=== PATIENT | female | born 1955 | race American Indian/Alaskan Native ===

== ENCOUNTER 2018-02-09 17:04 | Inpatient (IN) | payer BC ==
--- NOTE | 2018-02-09 17:34 | C.PDOC ---
History Of Present Illness 62 year old female, whose past medical history includes hypertension and hyperlipidemia, presents to the ED for evaluation of chest pain for 2 days. Patient reports left-sided heaviness that radiates down her arm. She was evaluated by her level vial inspector today and sent to the ED for further evaluation. Patient notes she took an Aspirin today. She denies headache, nausea, vomiting. Time Seen by Provider: 02/09/18 17:29 Chief Complaint (Nursing): High Blood Pressure History Per: Patient History/Exam Limitations: no limitations Onset/Duration Of Symptoms: Days (2) Current Symptoms Are (Timing): Still Present Associated Symptoms: denies: Headache Additional History Per: Patient Past Medical History Reviewed: Historical Data, Nursing Documentation, Vital Signs Vital Signs: Last Vital Signs Temp 98.1 F 02/09/18 17:14 Pulse 64 02/09/18 17:14 Resp 16 02/09/18 17:14 BP 161/82 H 02/09/18 17:14 Pulse Ox 100 02/09/18 17:14 - Medical History PMH: HTN, Hypercholesterolemia Surgical History: No Surg Hx Family History: States: Unknown Family Hx - Social History Hx Tobacco Use: No Hx Alcohol Use: No Hx Substance Use: No - Immunization History Hx Tetanus Toxoid Vaccination: No Hx Influenza Vaccination: No Hx Pneumococcal Vaccination: No Review Of Systems Cardiovascular: Positive for: Chest Pain Gastrointestinal: Negative for: Nausea, Vomiting Musculoskeletal: Positive for: Arm Pain Neurological: Negative for: Headache Physical Exam - Physical Exam Appears: Non-toxic, No Acute Distress, Other (obese) Skin: Normal Color, Warm, Dry Head: Atraumatic, Normacephalic Eye(s): bilateral: Normal Inspection Oral Mucosa: Moist Neck: Supple Chest: Symmetrical, No Deformity, No Tenderness Cardiovascular: Rhythm Regular, No Murmur Respiratory: Normal Breath Sounds, No Rales, No Rhonchi, No Wheezing Extremity: Normal ROM, Capillary Refill (less than 2 seconds ) Neurological/Psych: Oriented x3, Normal Speech, Normal Cognition ED Course And Treatment - Laboratory Results Result Diagrams: 02/09/18 17:54 02/09/18 17:54 ECG: Interpreted By Me, Viewed By Me ECG Rhythm: Sinus Rhythm Interpretation Of ECG: Normal Sinus Rhythm at rate 61bpm. No ST/T wave changes. Rate From EC O2 Sat by Pulse Oximetry: 100 (on RA) Pulse Ox Interpretation: Normal Medical Decision Making Medical Decision Making: typical cp h/ dominic mi. Progress: Bloodwork, CXR, EKG ordered and reviewed. pt took asa today. accepted by hospitalist. Disposition - Disposition Disposition: HOSPITALIZED Disposition Time: 19:00 Condition: STABLE - Clinical Impression Clinical Impression: Acute coronary syndrome - Scribe Statement The provider has reviewed the documentation as recorded by the Scribe (Angeles Cueva) Provider Attestation: All medical record entries made by the Scribe were at my direction and personally dictated by me. I have reviewed the chart and agree that the record accurately reflects my personal performance of the history, physical exam, m edical decision making, and the department course for this patient. I have also personally directed, reviewed, and agree with the discharge instructions and disposition. Decision To Admit - Pt Status Changed To: Hospital Disposition Of: Inpatient - Admit Certification Admit to Inpatient:: After my assessment, the patient will require hospitalization for at least two midnights. This is because of the severity of symptoms shown, intensity of services needed, and/or the medical risk in this patient being treated as an outpatient. - InPatient: Physician Admission Certification: I certify that this patient requires 2 or more midnights of care for the following reason:: acs likely needs cath - . Bed Request Type: Telemetry Admitting Physician: Ileana Wise Patient Diagnosis: Acute coronary syndrome
[2018-02-09 17:57] LABS: BASO % 0.4 % (0.0-2.0); EOS # 0.1 K/uL (0.0-0.7); HEMOGLOBIN 13.4 g/dL (11.0-16.0); LYMPH # 2.8 K/uL (1.0-4.3); MEAN CELL VOLUME 81.2 fL (81.0-99.0); MEAN CORPUSCULAR HEMOGLOBIN 26.9 pg (27.0-31.0); MEAN CORPUSCULAR HGB CONC 33.1 g/dL (33.0-37.0); MEAN PLATELET VOLUME 9.5 fL (7.2-11.7); MONO # 0.3 K/uL (0.0-0.8); MONO % 4.6 % (0.0-10.0); NEUT # 3.3 K/uL (1.8-7.0); NRBC % 0.1 % (0.0-2.0); RBC 4.99 Mil/uL (3.80-5.20); RED CELL DISTRIBUTION WIDTH 15.2 % (11.5-14.5); WHITE BLOOD COUNT 6.5 K/uL (4.8-10.8)
[2018-02-09 18:09] LABS: INR 1.2; PROTHROMBIN TIME 13.2 SECONDS (9.7-12.2)
[2018-02-09 18:10] LABS: ALB/GLOB RATIO 1.3 (1.0-2.1); ALBUMIN 4.8 g/dL (3.5-5.0); ALT/SGPT 26 U/L (9-52); AST/SGOT 32 U/L (14-36); BLOOD UREA NITROGEN 11 mg/dL (7-17); CALCIUM 9.8 mg/dl (8.6-10.4); GFR NON-AFRICAN AMERICAN > 60
--- NOTE | 2018-02-09 21:50 | CP.PCM.CON ---
History of Present Illness - History of Present Illness History of Present Illness: 62 F with multiple cardiac risk factors, Exertional chest pain Abnormal stress test For Cardiac cath in am NPO after MN except medications Past Patient History - Infectious Disease Hx of Infectious Diseases: None - Past Social History Smoking Status: Never Smoked - CARDIAC Hx Hypercholesterolemia: Yes Hx Hypertension: Yes - PSYCHIATRIC Hx Substance Use: No - SURGICAL HISTORY Hx Section: Yes Other/Comment: PERICARDIAL WINDOW. COLON RESECTION - ANESTHESIA Hx Anesthesia: Yes Hx Anesthesia Reactions: No Meds Allergies/Adverse Reactions: Allergies Allergy/AdvReac Type Severity Reaction Status Date / Time No Known Allergies Allergy Verified 02/09/18 17:14 Results - Vital Signs Recent Vital Signs: Last Vital Signs Temp 97.8 F 02/09/18 21:26 Pulse 58 L 02/09/18 21:26 Resp 18 02/09/18 21:26 BP 131/84 02/09/18 21:26 Pulse Ox 99 02/09/18 21:26 - Labs Result Diagrams: 02/09/18 17:54 02/09/18 17:54 Labs: Laboratory Results - last 24 hr 02/09/18 02/09/18 02/09/18 17:54 17:54 17:54 WBC 6.5 D RBC 4.99 Hgb 13.4 Hct 40.5 MCV 81.2 MCH 26.9 L MCHC 33.1 RDW 15.2 H Plt Count 200 MPV 9.5 Neut % (Auto) 50.0 Lymph % (Auto) 43.0 H Tripp % (Auto) 4.6 Eos % (Auto) 2.0 Baso % (Auto) 0.4 Neut # (Auto) 3.3 Lymph # (Auto) 2.8 Tripp # (Auto) 0.3 Eos # (Auto) 0.1 Baso # (Auto) 0.0 PT 13.2 H INR 1.2 APTT 34 Sodium 140 Potassium 3.5 L Chloride 100 Carbon Dioxide 27 Anion Gap 17 BUN 11 Creatinine 0.9 Est GFR ( Amer) > 60 Est GFR (Non-Af Amer) > 60 Random Glucose 108 H Calcium 9.8 Total Bilirubin 0.9 AST 32 ALT 26 Alkaline Phosphatase 72 Troponin I < 0.0120 Total Protein 8.6 H Albumin 4.8 Globulin 3.8 Albumin/Globulin Ratio 1.3
--- NOTE | 2018-02-09 23:31 | CP.PCM.HP ---
<Camryn Song P - Last Filed: 02/10/18 10:16> History of Present Illness - History of Present Illness History of Present Illness: H&P for hospitalist service: 62 year old female with PMHx of HTN, hypercholesterolemia and prior [place] presents with intermittent chest pain for the past year recently worsening in frequency and intensity in the past 3 days. Pain is associated with numbness and tingling in the L arm. Pain does not radiate. Patient denies palpitations, shortness of breath, cough, nausea, vomiting, fever, chills, trauma, leg swelling, and recent travel. PMHx: HTN, hypercholesterolemia, possible pericarditis and prior [place] PSHx: 4 c-sectons, pericardial window at 18 years old Meds: Amlodipine 10mg daily. Unsure of remaining medication. Follow up with pharmacy ([facility]) Allergies: NKDA Social: denies tobacco and illicit drug use. Occasional alcohol use. Lives alone. Family Hx: Maternal grandmother colon cancer, mother- cervical cancer. Proxy: Gerson Hernandez [phone] Code status: full code Present on Admission - Present on Admission Any Indicators Present on Admission: No Review of Systems - Constitutional Constitutional: absent: Chills, Fever, Headache, Night Sweats - EENT Eyes: absent: Blurred Vision, Diplopia Nose/Mouth/Throat: absent: Nasal Congestion, Sore Throat - Cardiovascular Cardiovascular: Chest Pain, Diaphoresis (hot flashes attributed to menopause). absent: Dyspnea on Exertion, Edema, Irregular Heart Rhythm, Pain Radiating to Arm/Neck/Jaw, Leg Edema, Palpitations - Respiratory Respiratory: absent: Cough, Dyspnea, Hemoptysis, Pain on Inspiration - Gastrointestinal Gastrointestinal: absent: Abdominal Pain, Constipation, Diarrhea, Heartburn, Loose Stools, Melena, Nausea, Vomiting - Genitourinary Genitourinary: absent: Dysuria, Hematuria - Musculoskeletal Musculoskeletal: absent: Deformity, Joint Swelling, Muscle Cramps, Muscle Weakness - Integumentary Integumentary: absent: Rash, Unusual Bruising, Wounds - Neurological Neurological: Numbness (L arm). absent: Abnormal Speech, Confusion, Dizziness, Focal Weakness, Headaches, Loss of Vision, Weakness Past Patient History - Infectious Disease Hx of Infectious Diseases: None - Past Social History Smoking Status: Never Smoked - CARDIAC Hx Hypercholesterolemia: Yes Hx Hypertension: Yes - MUSCULOSKELETAL/RHEUMATOLOGICAL Hx Falls: No - PSYCHIATRIC Hx Substance Use: No - SURGICAL HISTORY Hx Section: Yes Other/Comment: PERICARDIAL WINDOW. COLON RESECTION - ANESTHESIA Hx Anesthesia: Yes Hx Anesthesia Reactions: No Meds Allergies/Adverse Reactions: Allergies Allergy/AdvReac Type Severity Reaction Status Date / Time No Known Allergies Allergy Verified 02/09/18 17:14 Physical Exam - Constitutional Appears: Non-toxic, No Acute Distress - Head Exam Head Exam: ATRAUMATIC, NORMOCEPHALIC - Eye Exam Eye Exam: EOMI, Normal appearance, PERRL - ENT Exam ENT Exam: Mucous Membranes Moist - Neck Exam Neck exam: Positive for: Full Rom, Normal Inspection - Respiratory Exam Respiratory Exam: Clear to Auscultation Bilateral, NORMAL BREATHING PATTERN. absent: Rales, Rhonchi, Wheezes - Cardiovascular Exam Cardiovascular Exam: Bradycardia, REGULAR RHYTHM, +S1, +S2. absent: Systolic Murmur Additional comments: No reproducible chest tenderness - GI/Abdominal Exam GI & Abdominal Exam: Normal Bowel Sounds, Soft. absent: Guarding, Rebound, Tenderness - Extremities Exam Extremities exam: Positive for: full ROM, normal inspection. Negative for: calf tenderness, joint swelling, pedal edema, tenderness - Neurological Exam Neurological exam: Alert, Oriented x3 - Psychiatric Exam Psychiatric exam: Normal Affect, Normal Mood - Skin Skin Exam: Dry, Intact, Normal Color, Warm Results - Vital Signs Recent Vital Signs: Last Vital Signs Temp 97.8 F 02/09/18 21:26 Pulse 58 L 02/09/18 21:26 Resp 18 02/09/18 21:26 BP 131/84 02/09/18 21:26 Pulse Ox 99 02/09/18 21:26 - Labs Result Diagrams: 02/10/18 06:31 02/10/18 06:31 Labs: Laboratory Results - last 24 hr 02/09/18 02/09/18 02/09/18 17:54 17:54 17:54 WBC 6.5 D RBC 4.99 Hgb 13.4 Hct 40.5 MCV 81.2 MCH 26.9 L MCHC 33.1 RDW 15.2 H Plt Count 200 MPV 9.5 Neut % (Auto) 50.0 Lymph % (Auto) 43.0 H Starke % (Auto) 4.6 Eos % (Auto) 2.0 Baso % (Auto) 0.4 Neut # (Auto) 3.3 Lymph # (Auto) 2.8 Starke # (Auto) 0.3 Eos # (Auto) 0.1 Baso # (Auto) 0.0 PT 13.2 H INR 1.2 APTT 34 Sodium 140 Potassium 3.5 L Chloride 100 Carbon Dioxide 27 Anion Gap 17 BUN 11 Creatinine 0.9 Est GFR ( Amer) > 60 Est GFR (Non-Af Amer) > 60 Random Glucose 108 H Calcium 9.8 Total Bilirubin 0.9 AST 32 ALT 26 Alkaline Phosphatase 72 Troponin I < 0.0120 Total Protein 8.6 H Albumin 4.8 Globulin 3.8 Albumin/Globulin Ratio 1.3 Assessment & Plan - Assessment and Plan (Free Text) Plan: 62 year old female with PMHx of HTN, hypercholesterolemia and prior [place] admitted for chest pain rule out ACS. Chest pain rule out ACS with Hx of previous [place] (no stent placement) -EKG on admission: NSR at 61 bpm, RVH, Anteriolateral infarct age indeterminate -Repeat EKG: Sinus bradycardia t 57 bpm, Anteriolateral infarct age indeterminate -Troponin negative x3 -F/u CXR -F/u Lipid panel -F/u TSH -F/u Hgb A1c -Aspirin 81 mg daily -Crestor 5mg HS -Cardio consult, Dr. Bermudez. Cardiac cath in AM. NPO -Follow up home medications with pharmacy: [facility] on [address] HTN -Amlodipine 10mg QD (home med) Hypercholesterolemia -Patient unsure of home medication, placed on Crestor 5mg HS Prophylaxis -GI ppx not indicated -SCDs -Hold chemical anticoagulation for procedure <Nii Trujillo - Last Filed: 02/10/18 19:04> Results - Vital Signs Recent Vital Signs: Last Vital Signs Temp 97.9 F 02/10/18 15:15 Pulse 60 02/10/18 15:15 Resp 20 02/10/18 15:15 BP 139/84 02/10/18 15:15 Pulse Ox 98 02/10/18 15:15 - Labs Result Diagrams: 02/10/18 06:31 02/10/18 06:31 Labs: Laboratory Results - last 24 hr 02/10/18 02/10/18 02/10/18 00:31 06:31 06:31 WBC 5.5 RBC 4.48 Hgb 12.3 Hct 36.3 MCV 81.0 MCH 27.4 MCHC 33.8 RDW 15.0 H Plt Count 168 MPV 10.2 Neut % (Auto) 43.0 L Lymph % (Auto) 45.3 H Starke % (Auto) 7.6 Eos % (Auto) 3.1 Baso % (Auto) 1.0 Neut # (Auto) 2.4 Lymph # (Auto) 2.5 Starke # (Auto) 0.4 Eos # (Auto) 0.2 Baso # (Auto) 0.1 PT 13.2 H INR 1.2 APTT 31 Sodium Potassium Chloride Carbon Dioxide Anion Gap BUN Creatinine Est GFR ( Amer) Est GFR (Non-Af Amer) POC Glucose (mg/dL) Random Glucose Hemoglobin A1c Calcium Phosphorus Magnesium Total Bilirubin AST ALT Alkaline Phosphatase Total Creatine Kinase 105 CK-MB (Mass) 0.63 Troponin I < 0.0120 Total Protein Albumin Globulin Albumin/Globulin Ratio Triglycerides Cholesterol LDL Cholesterol Direct HDL Cholesterol TSH 3rd Generation 02/10/18 02/10/18 02/10/18 06:31 06:31 12:03 WBC RBC Hgb Hct MCV MCH MCHC RDW Plt Count MPV Neut % (Auto) Lymph % (Auto) Starke % (Auto) Eos % (Auto) Baso % (Auto) Neut # (Auto) Lymph # (Auto) Starke # (Auto) Eos # (Auto) Baso # (Auto) PT INR APTT Sodium 139 Potassium 3.2 L Chloride 103 Carbon Dioxide 28 Anion Gap 11 BUN 14 Creatinine 0.9 Est GFR ( Amer) > 60 Est GFR (Non-Af Amer) > 60 POC Glucose (mg/dL) 90 Random Glucose 98 Hemoglobin A1c 6.6 H Calcium 9.4 Phosphorus 3.9 Magnesium 1.8 Total Bilirubin 0.8 AST 42 H D ALT 23 Alkaline Phosphatase 82 Total Creatine Kinase 113 CK-MB (Mass) 0.77 Troponin I < 0.0120 Total Protein 7.6 Albumin 4.4 Globulin 3.2 Albumin/Globulin Ratio 1.4 Triglycerides 163 H Cholesterol 202 H LDL Cholesterol Direct 101 HDL Cholesterol 57 TSH 3rd Generation 3.61 Assessment & Plan - Date & Time Date: 02/10/18 (I have seen and examined the patient. I agree with the findings and plan of care as documented by Dr. Song. Patient with acute chest pain. History of CAD and Hypertension. Continue home meds. ROMIx3 with EKG. Consult to Cardio. Monitor for acute changes.) Time: 19:03 Attending/Attestation - Attestation I have personally seen and examined this patient.: Yes I have fully participated in the care of the patient.: Yes I have reviewed all pertinent clinical information: Yes
[2018-02-10 01:29] LABS: CK-MB 0.63 ng/mL (0.0-3.38)
[2018-02-10 01:48] VITALS: RESP 20
[2018-02-10 06:40] LABS: BASO # 0.1 K/uL (0.0-0.2); EOS # 0.2 K/uL (0.0-0.7); EOS % 3.1 % (0.0-4.0); HEMOGLOBIN 12.3 g/dL (11.0-16.0); LYMPH # 2.5 K/uL (1.0-4.3); LYMPH % 45.3 % (20.0-40.0); MEAN CORPUSCULAR HEMOGLOBIN 27.4 pg (27.0-31.0); MEAN CORPUSCULAR HGB CONC 33.8 g/dL (33.0-37.0); MEAN PLATELET VOLUME 10.2 fL (7.2-11.7); MONO # 0.4 K/uL (0.0-0.8); MONO % 7.6 % (0.0-10.0); NEUT # 2.4 K/uL (1.8-7.0); NRBC % 0.1 % (0.0-2.0); RBC 4.48 Mil/uL (3.80-5.20); WHITE BLOOD COUNT 5.5 K/uL (4.8-10.8)
[2018-02-10 06:58] LABS: INR 1.2; PROTHROMBIN TIME 13.2 SECONDS (9.7-12.2)
[2018-02-10 07:09] LABS: LDL CHOLESTEROL 101 mg/dL (0-129)
[2018-02-10 07:32] LABS: ALB/GLOB RATIO 1.4 (1.0-2.1); ALBUMIN 4.4 g/dL (3.5-5.0); ALT/SGPT 23 U/L (9-52); AST/SGOT 42 U/L (14-36); BLOOD UREA NITROGEN 14 mg/dL (7-17); CALCIUM 9.4 mg/dl (8.6-10.4); GFR NON-AFRICAN AMERICAN > 60; HDL CHOLESTEROL 57 mg/dL (30-70)
[2018-02-10 07:52] LABS: CK-MB 0.77 ng/mL (0.0-3.38)
[2018-02-10] MEDS ORDERED: Verapamil 2 ML ONE (08:16)
[2018-02-10] MEDS ORDERED: Nitroglycerin 50mg in D5W 50 MG/250 ML BOTTLE IV ONE (08:17)
[2018-02-10] MEDS ORDERED: Iohexol 350mg/ml 100 ML ONE (08:25)
[2018-02-10] MEDS ORDERED: Midazolam 2 MG/2 ML VIAL ONE (08:54)
[2018-02-10] MEDS ORDERED: Potassium Chloride 20 mEq ER Tab PO SCH (09:45)
--- NOTE | 2018-02-10 09:56 | RAD ---
Date of service: 02/09/2018 PROCEDURE: CHEST RADIOGRAPH, 1 VIEW HISTORY: chest pain COMPARISON: 12/13/2013 FINDINGS: LUNGS: Clear. PLEURA: No pneumothorax or pleural fluid seen. CARDIOVASCULAR: Normal. OSSEOUS STRUCTURES: No significant abnormalities. VISUALIZED UPPER ABDOMEN: Normal. OTHER FINDINGS: None. IMPRESSION: No active disease.
[2018-02-10] MEDS ORDERED: Glucagon Recombinant 1 mg Inj IM PRN (10:42)
[2018-02-10] MEDS ORDERED: Dextrose 50% SYRINGE Inj (50 ml) IV PRN (10:42)
[2018-02-10] MEDS ORDERED: Dextrose 50% SYRINGE Inj (50 ml) IVP PRN (10:42)
--- NOTE | 2018-02-10 10:57 | CP.PCM.PN ---
Subjective - Date & Time of Evaluation Date of Evaluation: 02/10/18 Time of Evaluation: 10:55 - Subjective Subjective: Patient s/p Cath L main: distal 50% with haziness and pressure dampening LAD: Ostial 50% hazy lesion L Cx: Proximal/Ostial 50% RCA: Proximal 80% EF: 70% Triple vessel and L main disease CABG Vs. PCI to be decided by tonight Continue current meds Objective - Vital Signs/Intake and Output Vital Signs (last 24 hours): Temp Pulse Resp BP Pulse Ox 97.7 F 53 L 20 125/67 99 02/10/18 06:15 02/10/18 06:15 02/10/18 06:15 02/10/18 06:15 02/10/18 06:15 - Medications Medications: Current Medications Amlodipine Besylate (Norvasc) 10 mg PO DAILY YASHIRA Aspirin (Aspirin Chewable) 81 mg PO DAILY YASHIRA Dextrose (Dextrose 50% Inj) 50 ml IVP ONCE PRN PRN Reason: Hypoglycemia Dextrose (Dextrose 50% Inj) 0 ml IV STAT PRN; Protocol PRN Reason: Hypoglycemia Protocol Dextrose (Glutose 15) 0 gm PO ONCE PRN; Protocol PRN Reason: Hypoglycemia Protocol Glucagon (Glucagen Diagnostic Kit) 0 mg IM STAT PRN; Protocol PRN Reason: Hypoglycemia Protocol Dextrose (Dextrose 5% In Water 1000 Ml) 1,000 mls @ 0 mls/hr IV .Q0M PRN; Protocol PRN Reason: Hypoglycemia Protocol Pneumococcal Polyvalent Vaccine (Pneumovax 23 Vaccine) 0.5 ml IM .ONCE ONE Stop: 02/11/18 10:01 Potassium Chloride (K-Dur 20 Meq Er Tab) 20 meq PO BRK YASHIRA Stop: 02/11/18 09:46 Rosuvastatin Calcium (Crestor) 10 mg PO HS YASHIRA - Labs Labs: 02/10/18 06:31 02/10/18 06:31 PT 13.2 SECONDS (9.7-12.2) H 02/10/18 06:31 INR 1.2 02/10/18 06:31 APTT 31 SECONDS (21-34) 02/10/18 06:31
--- NOTE | 2018-02-10 13:37 | RAD ---
Date of service: 02/10/2018 HISTORY: chest pain COMPARISON: 02/09/2018 FINDINGS: LUNGS: No active pulmonary disease. PLEURA: No significant pleural effusion identified, no pneumothorax apparent. CARDIOVASCULAR: No aortic atherosclerotic calcification present. Normal cardiac size. No pulmonary vascular congestion. OSSEOUS STRUCTURES: No significant abnormalities. VISUALIZED UPPER ABDOMEN: Normal. OTHER FINDINGS: None. IMPRESSION: No active disease.
[2018-02-10] MEDS ORDERED: Pantoprazole 40 mg EC Tab PO SCH (16:15)
--- NOTE | 2018-02-10 17:07 | CARD ---
APPROVED REPORT Date of service: 02/09/2018 EKG Measurement Heart [id number] <Conclusion> Normal sinus rhythm Possible limb lead reversal Interpretation is based on non reversal. Indeterminate axis. Old lateral wall MT, old anterolateral infarct, age undetermined Abnormal ECG
--- NOTE | 2018-02-10 17:43 | CARD ---
APPROVED REPORT Date of service: 02/10/2018 EXAM: LIMITED Two-dimensional and M-mode echocardiogram with Doppler and color Doppler. Other Information Quality : TDSRhythm : Technically limited study due to body habitus. RISK FACTORS Hypertension Hyperlipidemia 2D DIMENSIONS IVSd0.7 (0.7-1.1cm)LVDd3.8 (3.9-5.9cm) PWd0.9 (0.7-1.1cm)LVDs2.4 (2.5-4.0cm) FS (%) 36.7 %LVEF (%)67.2 (>50%) M-Mode DIMENSIONS RVDd2.38 (2.1-3.2cm)Left Atrium (MM)4.58 (2.5-4.0cm) IVSd0.78 (0.7-1.1cm)Aortic Root2.85 (2.2-3.7cm) LVDd5.66 (4.0-5.6cm)Aortic Cusp Exc.2.16 (1.5-2.0cm) PWd1.05 (0.7-1.1cm)FS (%) 28 % LVDs4.06 (2.0-3.8cm)LVEF (%)54 (>50%) Mitral Valve MV E Khblcnbm46.1cm/sMV A Vlrykyjd97.8cm/sE/A ratio0.9 TDI Lateral E' Peak V5.84cm/sMedial E' Peak V6.09cm/sE/Lateral E'15.1 E/Medial E'14.5 LEFT VENTRICLE The left ventricle is normal size. 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 There is normal left ventricular wall thickness. The left ventricular function is normal. The left ventricular ejection fraction is within the normal range. About 65% The left ventricular diastolic function is indeterminate. No left ventricle thrombus noted on this study. There is no ventricular septal defect visualized. There is no left ventricular aneurysm. There is no mass noted in the left ventricle. RIGHT VENTRICLE The right ventricle is normal size. There is normal right ventricular wall thickness. The right ventricular systolic function is normal. ATRIA The left atrium size is normal. The right atrium size is normal. The interatrial septum is intact with no evidence for an atrial septal defect. AORTIC VALVE The aortic valve is normal in structure and function. No aortic regurgitation is present. There is no aortic valvular stenosis. There is no aortic valvular vegetation. MITRAL VALVE The mitral valve is normal in structure and function. There is no evidence of mitral valve prolapse. There is no mitral valve stenosis. There is no mitral valve regurgitation noted. TRICUSPID VALVE The tricuspid valve is normal in structure and function. There is no tricuspid valve regurgitation noted. There is no tricuspid valve prolapse or vegetation. There is no tricuspid valve stenosis. PULMONIC VALVE The pulmonary valve is normal in structure and function. There is no pulmonic valvular regurgitation. There is no pulmonic valvular stenosis. GREAT VESSELS The aortic root is normal in size. The ascending aorta is normal in size. The pulmonary artery is normal. The IVC is normal in size and collapses >50% with inspiration. PERICARDIAL EFFUSION The pericardium appears normal. There is no pleural effusion. <Conclusion> Sub-optimal parasteranl long axis view. The left ventricular function is normal. 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 Normal doppler.
--- NOTE | 2018-02-10 18:19 | CP.PCM.PN ---
<María Elena Davis - Last Filed: 02/10/18 18:11> Subjective - Date & Time of Evaluation Date of Evaluation: 02/10/18 Time of Evaluation: 18:12 - Subjective Subjective: Patient seen and examined after cardiac cath. Patient denies chest pain, SOB, nausea, vomiting, diarrhea, fevers, chills. She feels anxious about the news of triple vessel disease. Objective - Vital Signs/Intake and Output Vital Signs (last 24 hours): Temp Pulse Resp BP Pulse Ox 97.7 F 54 L 20 125/67 99 02/10/18 06:15 02/10/18 12:25 02/10/18 06:15 02/10/18 06:15 02/10/18 06:15 - Medications Medications: Current Medications Aspirin (Aspirin Chewable) 81 mg PO DAILY [facility] Last Admin: 02/10/18 09:30 Dose: Not Given Dextrose (Dextrose 50% Inj) 50 ml IVP ONCE PRN PRN Reason: Hypoglycemia Dextrose (Dextrose 50% Inj) 0 ml IV STAT PRN; Protocol PRN Reason: Hypoglycemia Protocol Dextrose (Glutose 15) 15 gm PO ONCE PRN; Protocol PRN Reason: Hypoglycemia Protocol Glucagon (Glucagen Diagnostic Kit) 1 mg IM STAT PRN; Protocol PRN Reason: Hypoglycemia Protocol Hydrochlorothiazide (Microzide) 12.5 mg PO DAILY [facility] Dextrose (Dextrose 5% In Water 1000 Ml) 1,000 mls @ 0 mls/hr IV .Q0M PRN; Protocol PRN Reason: Hypoglycemia Protocol Losartan Potassium (Cozaar) 100 mg PO DAILY [facility] Pantoprazole Sodium (Protonix Ec Tab) 40 mg PO DAILY [facility] Pneumococcal Polyvalent Vaccine (Pneumovax 23 Vaccine) 0.5 ml IM .ONCE ONE Stop: 02/11/18 10:01 Potassium Chloride (K-Dur 20 Meq Er Tab) 20 meq PO BRK [facility] Stop: 02/11/18 09:46 Last Admin: 02/10/18 11:34 Dose: 20 meq Rosuvastatin Calcium (Crestor) 10 mg PO HS [facility] - Labs Labs: 02/10/18 06:31 02/10/18 06:31 PT 13.2 SECONDS (9.7-12.2) H 02/10/18 06:31 INR 1.2 02/10/18 06:31 APTT 31 SECONDS (21-34) 02/10/18 06:31 - Constitutional Appears: Well, Non-toxic - Head Exam Head Exam: ATRAUMATIC, NORMAL INSPECTION - Eye Exam Eye Exam: EOMI, Normal appearance - ENT Exam ENT Exam: Mucous Membranes Moist, Normal Exam - Neck Exam Neck Exam: Normal Inspection - Respiratory Exam Respiratory Exam: Clear to Ausculation Bilateral, NORMAL BREATHING PATTERN - Cardiovascular Exam Cardiovascular Exam: REGULAR RHYTHM - GI/Abdominal Exam GI & Abdominal Exam: Soft, Normal Bowel Sounds. absent: Distended, Firm, Guarding, Rigid, Tenderness - Extremities Exam Extremities Exam: Normal Inspection Additional comments: peripheral pulses strong, no peripheral edema - Neurological Exam Neurological Exam: Alert, Awake, Oriented x3 - Psychiatric Exam Psychiatric exam: Normal Affect, Normal Mood - Skin Skin Exam: Dry, Intact, Normal Color, Warm Assessment and Plan - Assessment and Plan (Free Text) Assessment: 62 year old female with PMHx of HTN, hypercholesterolemia and [facility] rule out ACS. s/p cath by Dr. Bermudez 11/ AM. ACS - triple vessel disease -per cath results and spoke to Dr. Bermudez - pt with triple vessel disease. Will need CABG and CABG done at other facililty. Transfer to [facility] arranged 6am 11. EMTALA form ready to be signed by night resident physician. -NPO after midnight, dinner 02/10 can be served -EKG on admission: NSR at 61 bpm, RVH, Anteriolateral infarct age indeterminate -Troponin negative x3 - no active ischemia -lipid panel essentially wnl: chol 202, TG 163, LDL 101, HDL 57 -TSH wnl -Aspirin 81 mg daily -Crestor 10mg HS (high intensity) -Cardio consult, Dr. Bermudez. DM -Hgb A1c at 6.6% - patient newly diagnosed with DM -counseled about lifestyle modifications -if fail lifestyle modifications, can be candidate for metformin -osteopathy doctor order placed -f/u outpatient with Dr. Bhardwaj, primary care HTN -losartan 100 mg/HCTZ 12.5 mg(home med) -monitor VS hypokalemia -K = 3.2, repleted -CMP qAM Prophylaxis -GI ppx not indicated -SCDs -Hold chemical anticoagulation for procedure case d/w Dr. Scott Davis PGY1 <Naila Chavez V - Last Filed: 11/06/18 21:07> Objective - Vital Signs/Intake and Output Vital Signs (last 24 hours): Temp Pulse Resp BP Pulse Ox 97.9 F 60 20 139/84 98 02/10/18 15:15 02/10/18 15:15 02/10/18 15:15 02/10/18 15:15 02/10/18 15:15 - Medications Medications: Current Medications Aspirin (Aspirin Chewable) 81 mg PO DAILY [facility] Last Admin: 02/10/18 09:30 Dose: Not Given Dextrose (Dextrose 50% Inj) 50 ml IVP ONCE PRN PRN Reason: Hypoglycemia Dextrose (Dextrose 50% Inj) 0 ml IV STAT PRN; Protocol PRN Reason: Hypoglycemia Protocol Dextrose (Glutose 15) 15 gm PO ONCE PRN; Protocol PRN Reason: Hypoglycemia Protocol Glucagon (Glucagen Diagnostic Kit) 1 mg IM STAT PRN; Protocol PRN Reason: Hypoglycemia Protocol Hydrochlorothiazide (Microzide) 12.5 mg PO DAILY [facility] Last Admin: 02/10/18 18:28 Dose: 12.5 mg Dextrose (Dextrose 5% In Water 1000 Ml) 1,000 mls @ 0 mls/hr IV .Q0M PRN; Protocol PRN Reason: Hypoglycemia Protocol Losartan Potassium (Cozaar) 100 mg PO DAILY [facility] Last Admin: 02/10/18 18:28 Dose: 100 mg Pantoprazole Sodium (Protonix Ec Tab) 40 mg PO DAILY [facility] Last Admin: 02/10/18 18:28 Dose: 40 mg Pneumococcal Polyvalent Vaccine (Pneumovax 23 Vaccine) 0.5 ml IM .ONCE ONE Stop: 02/11/18 10:01 Potassium Chloride (K-Dur 20 Meq Er Tab) 20 meq PO BRK [facility] Stop: 02/11/18 09:46 Last Admin: 02/10/18 11:34 Dose: 20 meq Rosuvastatin Calcium (Crestor) 10 mg PO HS [facility] - Labs Labs: 02/10/18 06:31 02/10/18 06:31 PT 13.2 SECONDS (9.7-12.2) H 02/10/18 06:31 INR 1.2 02/10/18 06:31 APTT 31 SECONDS (21-34) 02/10/18 06:31 Attending/Attestation - Attestation I have personally seen and examined this patient.: Yes I have fully participated in the care of the patient.: Yes I have reviewed all pertinent clinical information, including history, physical exam and plan: Yes Notes (Text): Patient seen, examined, and case discussed with day-time resident. Patient seen this morning post-cardiac cath with her daughter Dave at bedside. Patient reports she is doing ok. She is aware of the findings in regards to her cardiac cath. I have also brought to her attention that she is a diabetic based on her a1c which shows a1c: 6.6. which was news to her. I did indicate to her that diabetes requires further education as well as time for diet/exercise and lifestyle modifications; as well as unwanted sequela of blindness, eye problems, kidney problems, and difficult to recover from wound healing. I did indicate to her to try trial of modifications and at this point I would not recommend PO medication until her a1c is next checked since she can control her diabetes with diet and exercise. Discussed with Dr. Bermudez, patient to be transferred in the morning to [facility] for CABG. Our hospital at this time does not support ability to perform CABG hence need for transfer. Patient to be NPO after midnight and for pickup at 6am on 02/11/18. Patient's potassium repleted today. f/u BMP and Mag ordered; I have discussed with night resident to f/u and replete electrolytes if necessary. Resident has confirmed patient's home medications with her pharmacy; we have restarted while she is in the hospital. beta-carl held given bradycardia. Assessment/Plan 1. Acute Coronary Syndrome Abnormal Stress Test Triple Vessel Disease Assessment/Plan * Cardiac risk factors: female, diabetic, hypertension, abnormal stress test * Cardiac enzymes X3: negative * Patient had an outpatient stress test (supporting ischemia) which was abnormal, prompting cardiac cath * Cardiology (Dr. Bermudez) on case-->help appreciated * pt with triple vessel disease. Will need CABG and CABG done at other facililty, transfer to [facility] arranged 6am 02/11. EMTALA form ready to be signed by night resident physician who is aware to see and evaluate patient at time of discharge. * NPO after midnight * Beta carl held given bradycardia * Aspirin 81mg PO daily * HCTZ 12.5mg PO daily * Cozaar 100mg PO daily * Lipid panel: chol 202, TG 163, LDL 101, HDL 57-->patient is on statin therapy as outpatient * start Crestor 10mg PoqHS (patient takes pravastatin 80mg POqHS as outpatient) 2. Newly Diagnosed Diabetes Assessment/Plan * Hgb A1c at 6.6% - patient newly diagnosed with DM * counseled about lifestyle modifications as trial to see if control diabetes prior to starting PO medications * Striping Machine Operator referral * Hypoglycemic procotol * Accuchecks QAC and HS * Diet and education ordered * Cozaar 100mg PO daily * Aspirin 81mg PO daily * Lipid panel: chol 202, TG 163, LDL 101, HDL 57-->patient is on statin therapy as outpatient 3. Hypertension Assessment/Plan * Cozaar 100mg PO daily * HCTZ 12.5mg PO daily * Aspirin 81mg PO daily * heart healthy, 2gm, carb consistent diet 4. Hypokalemia Assessment/Plan * repleted today * repeat blood work tonight * likely secondary to diuretic 5. Lipid Disorder Assessment/Plan * Lipid panel: chol 202, TG 163, LDL 101, HDL 57-->patient is on statin therapy as outpatient * start Crestor 10mg PoqHS (patient takes pravastatin 80mg POqHS as outpatient) 6. Prophylaxis * Protonix 40mg PO daily (patient has history of gerd) * DVT ppx held secondary to cardiac cath today; patient to be transferred to [place] for CABG Disposition: Patient completed cardiac cath indicating triple vessel disease, prompting for CABG. Patient to be transferred and discharge tomorrow in the AM for CABG; arrangements made by cardiology.
[2018-02-10 21:50] LABS: BLOOD UREA NITROGEN 16 mg/dL (7-17); CALCIUM 9.3 mg/dl (8.6-10.4); GFR NON-AFRICAN AMERICAN > 60
[2018-02-10] MEDS ORDERED: Potassium Chloride 10 mEq ER Tab PO ONE (22:30)
--- NOTE | 2018-02-11 04:41 | CP.PCM.DIS ---
Provider - Provider Date of Admission: 02/09/18 18:39 Attending physician: Naila Chavez DO Consults: Dr. Bermudez, cardiology Time Spent in preparation of Discharge (in minutes): 35 Diagnosis - Discharge Diagnosis (1) Acute coronary syndrome Status: Acute (2) Chest pain Status: Acute (3) Hypercholesteremia Status: Acute (4) Hypertension Status: Acute Hospital Course - Lab Results Lab Results: Most Recent Lab Values WBC 5.5 K/uL (4.8-10.8) 02/10/18 06:31 RBC 4.48 Mil/uL (3.80-5.20) 02/10/18 06:31 Hgb 12.3 g/dL (11.0-16.0) 02/10/18 06:31 Hct 36.3 % (34.0-47.0) 02/10/18 06:31 MCV 81.0 fL (81.0-99.0) 02/10/18 06:31 MCH 27.4 pg (27.0-31.0) 02/10/18 06:31 MCHC 33.8 g/dL (33.0-37.0) 02/10/18 06:31 RDW 15.0 % (11.5-14.5) H 02/10/18 06:31 Plt Count 168 K/uL (130-400) 02/10/18 06:31 MPV 10.2 fL (7.2-11.7) 02/10/18 06:31 Neut % (Auto) 43.0 % (50.0-75.0) L 02/10/18 06:31 Lymph % (Auto) 45.3 % (20.0-40.0) H 02/10/18 06:31 [place] % (Auto) 7.6 % (0.0-10.0) 02/10/18 06:31 Eos % (Auto) 3.1 % (0.0-4.0) 02/10/18 06:31 Baso % (Auto) 1.0 % (0.0-2.0) 02/10/18 06:31 Neut # (Auto) 2.4 K/uL (1.8-7.0) 02/10/18 06:31 Lymph # (Auto) 2.5 K/uL (1.0-4.3) 02/10/18 06:31 [place] # (Auto) 0.4 K/uL (0.0-0.8) 02/10/18 06:31 Eos # (Auto) 0.2 K/uL (0.0-0.7) 02/10/18 06:31 Baso # (Auto) 0.1 K/uL (0.0-0.2) 02/10/18 06:31 PT 13.2 SECONDS (9.7-12.2) H 02/10/18 06:31 INR 1.2 02/10/18 06:31 APTT 31 SECONDS (21-34) 02/10/18 06:31 Sodium 139 mmol/L (132-148) 02/10/18 21:35 Potassium 3.5 mmol/L (3.6-5.2) L 02/10/18 21:35 Chloride 103 mmol/L (98-107) 02/10/18 21:35 Carbon Dioxide 25 mmol/L (22-30) 02/10/18 21:35 Anion Gap 14 (10-20) 02/10/18 21:35 BUN 16 mg/dL (7-17) 02/10/18 21:35 Creatinine 0.9 mg/dL (0.7-1.2) 02/10/18 21:35 Est GFR ( Amer) > 60 02/10/18 21:35 Est GFR (Non-Af Amer) > 60 02/10/18 21:35 POC Glucose (mg/dL) 116 mg/dL (65-110) H 02/10/18 21:32 Random Glucose 111 mg/dL (65-105) H 02/10/18 21:35 Hemoglobin A1c 6.6 % (4.2-6.5) H 02/10/18 06:31 Calcium 9.3 mg/dl (8.6-10.4) 02/10/18 21:35 Phosphorus 3.9 mg/dL (2.5-4.5) 02/10/18 06:31 Magnesium 1.8 mg/dL (1.6-2.3) 02/10/18 21:35 Total Bilirubin 0.8 mg/dL (0.2-1.3) 02/10/18 06:31 AST 42 U/L (14-36) H D 02/10/18 06:31 ALT 23 U/L (9-52) 02/10/18 06:31 Alkaline Phosphatase 82 U/L (38-126) 02/10/18 06:31 Total Creatine Kinase 113 U/L (30-135) 02/10/18 06:31 CK-MB (Mass) 0.77 ng/mL (0.0-3.38) 02/10/18 06:31 Troponin I < 0.0120 ng/mL (0.00-0.120) 02/10/18 06:31 Total Protein 7.6 g/dL (6.3-8.3) 02/10/18 06:31 Albumin 4.4 g/dL (3.5-5.0) 02/10/18 06:31 Globulin 3.2 gm/dL (2.2-3.9) 02/10/18 06:31 Albumin/Globulin Ratio 1.4 (1.0-2.1) 02/10/18 06:31 Triglycerides 163 mg/dL (0-149) H 02/10/18 06:31 Cholesterol 202 mg/dL (0-199) H 02/10/18 06:31 LDL Cholesterol Direct 101 mg/dL (0-129) 02/10/18 06:31 HDL Cholesterol 57 mg/dL (30-70) 02/10/18 06:31 TSH 3rd Generation 3.61 mIU/L (0.46-4.68) 02/10/18 06:31 - Hospital Course Hospital Course: On admission: 62 year old female with PMHx of HTN, hypercholesterolemia and prior CO was sent to ED by Dimensional Inspector, Dr. Bermudez, for evaluation of intermittent chest pain for the past year. Pain has been recently worsening in frequency and intensity in the past 3 days. Pain is associated with numbness and tingling in the left arm. Pain does not radiate. Patient denies palpitations, shortness of breath, cough, nausea, vomiting, fever, chills, trauma, leg swelling, and recent travel. Hostpital Course: Patient was admitted for chest pain rule out acute coronary syndrome, as patient had multiple risk factors: female, diabetic, hypertension, abnormal stress test. Cardiac enzymes were negative x3. Dr. Bermudez was consulted, who took patient to cardiac cath. Patient was found to have acute coronary syndrome, with the following diseased vessels: L main: distal 50%, LAD: Ostial 50%, L Cx: Pr oximal/Ostial 50%, RCA: Proximal 80% and EF of 70%. Decision was made for patient to undergo CABG at [facility], arranged by Dr. Bermudez. During admission patient also newly diagnosed with diabetes with Hgb A1c of 6.6. Patient will attempt lifestyle modifications prior to diabetes medications. Patient is to follow up Hgb A1c with her primary care physician. CXR: No active pulmonary disease. No significant pleural effusion identified, no pneumothorax apparent. No aortic atherosclerotic calcification present. Normal cardiac size. No pulmonary vascular congestion. IMPRESSION: No active disease. (See full report) Echocardiogram: The LVEF is normal. 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 Normal doppler. (see full report) Patient is discharged to [facility], where she is scheduled to undergo CABG. Patient is not to return. Patient's medication list is the following: Aspirin 81mg PO daily HCTZ 12.5mg PO daily Cozaar 100mg PO daily Protonix 40mg PO daily Crestor 10mg PO HS K-Dur 20mEq PO daily Discharge Exam - Head Exam Head Exam: ATRAUMATIC, NORMAL INSPECTION - Eye Exam Eye Exam: EOMI, Normal appearance, PERRL - ENT Exam ENT Exam: Mucous Membranes Moist - Neck Exam Neck exam: Full Rom, Normal Inspection - Respiratory Exam Respiratory Exam: Clear to PA & Lateral, NORMAL BREATHING PATTERN. absent: Rales, Rhonchi, Wheezes, Respiratory Distress - Cardiovascular Exam Cardiovascular Exam: REGULAR RHYTHM, +S1, +S2 - GI/Abdominal Exam GI & Abdominal Exam: Normal Bowel Sounds, Soft. absent: Distended, Firm, Guarding, Tenderness - Extremities Exam Extremities exam: full ROM, normal capillary refill, pedal pulses present Additional comments: Trace pitting LE edema bilaterally - Neurological Exam Neurological exam: Alert, CN II-XII Intact (grossly), Oriented x3 - Psychiatric Exam Psychiatric exam: Normal Affect, Normal Mood - Skin Skin Exam: Dry, Intact, Normal Color, Warm Discharge Plan - Follow Up Plan Condition: STABLE Disposition: Trans to Other Acute Care [facility] Additional Instructions: Patient is transferred to [facility] for CABG. Patient is not to return. Referrals: Olman Bermudez MD [Staff Provider] -
[2018-02-11 06:30] VITALS: BP 151/87; PULSE 67; TEMP 98.3; O2SAT 99
[2018-02-11] MEDS ORDERED: Pneumococcal 23-Valent Vaccine IM ONE (10:00)
--- NOTE | 2018-02-11 19:43 | CARD ---
APPROVED REPORT Date of service: 02/10/2018 EKG Measurement Heart [id number] <Conclusion> Sinus bradycardia Possible Anterolateral infarct, age undetermined Abnormal ECG
--- NOTE | 2018-02-14 | CARD ---
APPROVED REPORT Date of service: 02/10/2018 EKG Measurement Heart [id number] <Conclusion> Sinus bradycardia Possible Anterolateral infarct, age undetermined Abnormal ECG
--- NOTE | 2018-02-15 14:56 | CARDCATH ---
PROCEDURE DATE: 02/10/2018 PROCEDURES: 1. Left heart catheterization. 2. Coronary angiogram. PERFORMING PHYSICIAN: Olman Bermudez MD CLINICAL INDICATIONS: 1. Angina. 2. Abnormal stress test. 3. Hyperlipidemia. 4. Hypertension. DESCRIPTION OF PROCEDURE: After informed consent, the patient was prepped and draped in the usual sterile fashion. A 2% lidocaine was given in the right groin for local anesthesia. Using micropuncture technique, a 6-Tunisian sheath was introduced into the right common femoral artery. A JR4 6-Tunisian diagnostic catheter crossed into the left ventricle across the aortic valve. LV end-diastolic pressure measured. Contrast was injected and LV angiogram was done. The catheter was pulled back across the aortic valve. The gradient across the aortic valve was measured and the same catheter engaged the into the right coronary artery. Contrast injected and right coronary angiogram was done. Then, the catheter was exchanged to a JR4 6-Tunisian diagnostic catheter. The catheter was engaged into the left main coronary artery. There was significant . Then, the catheter was exchanged to a 6-Tunisian JL3.5 guide catheter with side holes. Then, the catheter engaged into the left main coronary artery. Contrast injected and left coronary angiogram was done. The patient tolerated the procedure well. Postprocedure, Mynx closure device deployed in the right groin with excellent hemostasis. FINDINGS: 1. Left main, LAD, left circumflex has trifurcation disease. [place] 1, 1, 1 disease with 50% distal left main, 50% ostial LAD, 50% ostial circumflex disease. Mid and distal LAD and diagonal branches are patent. Distal circumflex and obtuse marginal branches are patent. 2. Right coronary artery is dominant. Proximal right coronary artery has 80% eccentric stenosis. The distal right coronary artery is patent. 3. LV ejection fraction is approximately 70%. No wall motion abnormality noted. EDP is 14. No gradient across the aortic valve. IMPRESSION: 1. Triple vessel disease as described above. 2. Normal left ventricular systolic function. 3. Recommend intravascular ultrasound of left coronary system followed by coronary artery bypass grafting surgery. Olman Bermudez MD
== END 2018-02-11 06:25 | disposition short-term general hospital (02) | DRG 287 ==
LOC: C.ER 17:04 → C.9E 18:39 → C.6T 20:22
PROVIDERS: ADMIT Hospitalist; ATTEND Hospitalist
PROC: 4A023N7 Measurement of Cardiac Sampling and Pressure, Left Heart, Percutaneous Approach (ICD-10-PCS; principal; 2018-02-10)
PROC: B2151ZZ Fluoroscopy of Left Heart using Low Osmolar Contrast (ICD-10-PCS; 2018-02-10)
PROC: B2111ZZ Fluoroscopy of Multiple Coronary Arteries using Low Osmolar Contrast (ICD-10-PCS; 2018-02-10)
DX: I25.119 Atherosclerotic heart disease of native coronary artery with unspecified angina pectoris (principal); I24.9 Acute ischemic heart disease, unspecified; E78.5 Hyperlipidemia, unspecified; E87.6 Hypokalemia; I10 Essential (primary) hypertension; E11.9 Type 2 diabetes mellitus without complications; E78.00 Pure hypercholesterolemia, unspecified; T50.2X5A Adverse effect of carbonic-anhydrase inhibitors, benzothiadiazides and other diuretics, initial encounter; I25.2 Old myocardial infarction; Z79.82 Long term (current) use of aspirin

== ENCOUNTER 2018-05-09 16:47 | Inpatient (IN) | payer BC ==
[2018-05-09 17:22] LABS: BASO # 0.1 K/uL (0.0-0.2); BASO % 0.9 % (0.0-2.0); EOS # 0.3 K/uL (0.0-0.7); EOS % 3.8 % (0.0-4.0); HEMOGLOBIN 14.3 g/dL (11.0-16.0); LYMPH % 43.8 % (20.0-40.0); MEAN CELL VOLUME 86.5 fL (81.0-99.0); MEAN CORPUSCULAR HEMOGLOBIN 28.6 pg (27.0-31.0); MEAN PLATELET VOLUME 9.6 fL (7.2-11.7); MONO # 0.8 K/uL (0.0-0.8); MONO % 8.4 % (0.0-10.0); NEUT # 3.9 K/uL (1.8-7.0); NEUT % 43.1 % (50.0-75.0); RBC 4.99 Mil/uL (3.80-5.20); WHITE BLOOD COUNT 9.1 K/uL (4.8-10.8)
--- NOTE | 2018-05-09 17:24 | C.PDOC ---
History Of Present Illness 62 year old female presents to the ED for evaluation of generalized weakness associated with decreased appetite for 2-3 days. The patient reports recent heart and brain surgery. She notes blurred vision that resolved after the surge ry. Denies fever, chills, and any other associated symptoms. Time Seen by Provider: 05/09/18 17:05 Chief Complaint (Nursing): Weakness/Neurological Deficit History Per: Patient History/Exam Limitations: no limitations Onset/Duration Of Symptoms: Days (x 2-3 days. ) Current Symptoms Are (Timing): Still Present Fall Associated With With Symptoms: No Recent travel outside of the [place]: No Past Medical History Reviewed: Historical Data, Nursing Documentation, Vital Signs Vital Signs: Last Vital Signs Temp 97.6 F 05/09/18 17:07 Pulse 99 H 05/09/18 17:07 Resp 18 05/09/18 17:07 BP 108/76 05/09/18 17:07 Pulse Ox 99 05/09/18 17:07 - Medical History PMH: HTN, Hypercholesterolemia - [facility] Procedures FLUOROSCOPY OF LEFT HEART USING LOW OSMOLAR CONTRAST (02/09/18) FLUOROSCOPY OF MULT COR ART USING L OSM CONTRAST (02/09/18) MEASURE OF CARDIAC SAMPL & PRESSURE, L HEART, PERC APPROACH (02/09/18) Family History: States: Unknown Family Hx - Social History Hx Tobacco Use: No Hx Alcohol Use: No Hx Substance Use: No - Immunization History Hx Tetanus Toxoid Vaccination: No Hx Influenza Vaccination: No Hx Pneumococcal Vaccination: No Review Of Systems Except As Marked, All Systems Reviewed And Found Negative. Constitutional: Positive for: Weakness (generalized. ), Other (decreased appetite.). Negative for: Fever, Chills Physical Exam - Physical Exam Appears: Well, Non-toxic, No Acute Distress, Other ((+) generalized weakness.) Skin: Warm, Dry Head: Atraumatic, Normacephalic Eye(s): bilateral: Normal Inspection Oral Mucosa: Moist Neck: Normal ROM Chest: Symmetrical, Tenderness ((+) chest wall tenderness near the post op area.) Cardiovascular: Rhythm Regular, No Murmur Respiratory: Normal Breath Sounds, No Rales, No Rhonchi, No Wheezing Gastrointestinal/Abdominal: Normal Exam, Soft, No Tenderness Extremity: Normal ROM (x4) Neurological/Psych: Oriented x3, Normal Speech, Normal Cognition ED Course And Treatment - Laboratory Results Result Diagrams: 05/09/18 17:19 05/09/18 17:19 ECG: Interpreted By Me, Viewed By Me ECG Rhythm: Sinus Rhythm, Nonspecific Changes ECG Interpretation: Normal Interpretation Of ECG: Q waves; no abnormalities Rate From EC O2 Sat by Pulse Oximetry: 99 (RA) Pulse Ox Interpretation: Normal - Radiology CXR: Interpreted by Me, Viewed By Me CXR Interpretation: Yes: Cardiomegaly, Other (b/l pleural effusion ) Medical Decision Making Medical Decision Making: Initial plan: -EKG -Blood sent. -CXR -Urine culture -Urinalysis Progress/Update: 6:25pm : Spoke with Dr. Bermudez, recommended to admit to Dr. Dailey. 6:26pm : Spoke with Dr. Rosado who accepted patient admission and recommended Dr. Mcleod for pulmonary consult. 6:54pm : Spoke with Dr. Mcleod agreed to consult. Disposition Discussed With : Kodak Rosado Doctor Will See Patient In The: Hospital - Disposition Disposition: HOSPITALIZED Disposition Time: 18:37 Condition: STABLE - POA Present On Arrival: None - Clinical Impression Clinical Impression: Pleural effusion, Heart failure - Scribe Statement The provider has reviewed the documentation as recorded by the Scribe (Marcy Watkins) Provider Attestation: All medical record entries made by the Scribe were at my direction and personally dictated by me. I have reviewed the chart and agree that the record accurately reflects my personal performance of the history, physical exam, medical decision making, and the department course for this patient. I have also personally directed, reviewed, and agree with the discharge instructions and disposition.
[2018-05-09 17:31] LABS: INR 1.3
[2018-05-09 17:34] LABS: ALB/GLOB RATIO 1.3 (1.0-2.1); ALBUMIN 4.7 g/dL (3.5-5.0); ALT/SGPT 17 U/L (9-52); AST/SGOT 25 U/L (14-36); BLOOD UREA NITROGEN 5 mg/dL (7-17); CALCIUM 9.9 mg/dl (8.6-10.4); GFR NON-AFRICAN AMERICAN 50
[2018-05-09 17:46] LABS: B-TYPE NATRIURETIC PEPTIDE 702 pg/mL (0-900); CK-MB 0.36 ng/mL (0.0-3.38)
[2018-05-09] MEDS: Sodium Chloride 0.9% 1,000 ML IV SCH (17:54)
--- NOTE | 2018-05-09 18:15 | RAD ---
Date of service: 05/09/2018 HISTORY: SOB COMPARISON: Portable chest 02/10/2018. FINDINGS: LUNGS: Small bilateral pleural effusions are identified in the interval with underlying airspace disease not completely excluded though not clearly evident either. No interval median sternotomy identified post CABG. No pulmonary vascular congestion. Cardiac size remains enlarged. No pneumothorax bilaterally. PLEURA: As above. CARDIOVASCULAR: No aortic atherosclerotic calcification present. As above OSSEOUS STRUCTURES: No significant abnormalities. VISUALIZED UPPER ABDOMEN: Normal. OTHER FINDINGS: None. IMPRESSION: Interval post CABG. Bilateral pleural effusions are identified with underlying airspace disease not completely excluded though not proven either. No pulmonary vascular congestion.
[2018-05-09] MEDS ORDERED: Potassium Chloride 20 mEq/15 ml LIQ UD PO STA (18:20)
[2018-05-09] MEDS ORDERED: Potassium Chloride 20 mEq/15 ml LIQ UD ONE (18:27)
[2018-05-09] MEDS ORDERED: Potassium Chloride 20 mEq ER Tab PO ONE (18:28)
[2018-05-09] MEDS ORDERED: Sodium Chloride 0.9% 500 ML IV ONE (19:35)
[2018-05-09] MEDS ORDERED: Albuterol 0.042% Inhal Sol (1.25 mg/3 mL) UD INH PRN (20:01)
[2018-05-09] MEDS: cefTRIAXone IV 1 gm in Dextros 1 GM in Dextrose 5% In Water 50 ML IVPB SCH (20:32)
[2018-05-10] MEDS: Levothyroxine 50 MCG TAB PO SCH (06:35)
[2018-05-10] MEDS: Sodium Chloride 0.9% 1,000 ML IV SCH (06:37)
--- NOTE | 2018-05-10 09:49 | RAD ---
Date of service: 05/09/2018 HISTORY: abd pain COMPARISON: None available. FINDINGS: BOWEL: Normal. No obstruction. No free air. Phlebolith type calcifications in the inferior pelvis soft tissues bilaterally. Linear radiodensity seen the right flank once again which may reflect postoperative change. BONES: Normal. OTHER FINDINGS: None. IMPRESSION: Nonobstructive bowel gas pattern. No prominent free intra peritoneal gas collection identified.
[2018-05-10] MEDS ORDERED: NISOLDIPINE 8.5 MG PO SCH (10:00)
[2018-05-10] MEDS: Enoxaparin 40 mg Syringe SC SCH (10:02)
[2018-05-10] MEDS: cefTRIAXone IV 1 gm in Dextros 1 GM in Dextrose 5% In Water 50 ML IVPB SCH (10:02)
--- NOTE | 2018-05-10 11:12 | CT ---
Date of service: 05/09/2018 PROCEDURE: CT Chest without contrast HISTORY: r/o pneumonia COMPARISON: None available. TECHNIQUE: Contiguous axial images were obtained through the chest without intravenous contrast enhancement. Sagittal and coronal reconstructions were performed. Radiation dose: Total exam DLP = 605.78 mGy-cm. This CT exam was performed using one or more of the following dose reduction techniques: Automated exposure control, adjustment of the mA and/or kV according to patient size, and/or use of iterative reconstruction technique. FINDINGS: LUNGS: Compressive atelectasis seen at the bilateral lower lobes with dependent atelectasis in the left upper lobe minimally. No definitive infiltrate bilaterally. Respiratory motion obscures left upper lobe. MEDIASTINUM: Unremarkable thoracic aorta. No aneurysm. Cardiomegaly. Main pulmonary artery unremarkable. No vascular congestion. No lymphadenopathy. Post CABG changes identified. No aortic atherosclerotic calcification. PLEURA: [id number] right and mild left pleural effusions are identified. BONES: No fracture. No destructive lesion. UPPER ABDOMEN: Small hiatal hernia. OTHER FINDINGS: None. IMPRESSION: Bilateral pleural effusions are identified moderate right and mild at the left exerting compression atelectasis at the bilateral lower lobes. Cardiomegaly without pulmonary vascular congestion.
[2018-05-10 11:22] LABS: SQUAMOUS EPITHIAL 13 /hpf (0-5); URINE BACTERIA OCC (<OCC); URINE BILIRUBIN NEGATIVE (NEGATIVE); URINE BLOOD NEGATIVE (NEGATIVE); URINE CLARITY Hazy (Clear); URINE COLOR Yellow (YELLOW); URINE GLUCOSE (UA) NORMAL (Normal); URINE HYALINE CAST 0-2 /lpf (0-2); URINE LEUKOCYTE ESTERASE NEG Leu/uL (Negative); URINE PROTEIN NEGATIVE (NEGATIVE); URINE UROBILINOGEN NORMAL mg/dL (0.2-1.0)
[2018-05-10 12:14] LABS: MEAN CELL VOLUME 88.4 fL (81.0-99.0); MEAN CORPUSCULAR HEMOGLOBIN 27.9 pg (27.0-31.0); MEAN CORPUSCULAR HGB CONC 31.5 g/dL (33.0-37.0); MEAN PLATELET VOLUME 9.9 fL (7.2-11.7); RBC 4.24 Mil/uL (3.80-5.20); RED CELL DISTRIBUTION WIDTH 18.9 % (11.5-14.5); WHITE BLOOD COUNT 5.6 K/uL (4.8-10.8)
[2018-05-10 12:21] LABS: HEMOGLOBIN 11.8 g/dL (11.0-16.0)
[2018-05-10 12:24] LABS: AMYLASE < 30 U/L (30-110); LIPASE 35 U/L (23-300)
[2018-05-10 12:31] LABS: ALB/GLOB RATIO 1.5 (1.0-2.1); CALCIUM 9.2 mg/dl (8.6-10.4)
[2018-05-10] MEDS: Potassium Ch 20mEq in D5-1/2NS 1,000 ML IV SCH ×2 (12:42→22:10)
--- NOTE | 2018-05-10 15:19 | CP.PCM.CON ---
History of Present Illness - History of Present Illness History of Present Illness: Reason for consultation: Pleural effusion 62-year-old female with history of hypertension, hypercholesterolemia, coronary artery disease status post CABG last February, Pituitary tumor status post surgery, was admitted for weakness and poor appetite for the past few days. Chest x-ray done consistent with bilateral pleural effusion right greater than left. Patient denies shortness of breath, denies cough, denies fever chills, denies night sweats, denies weight loss. PMHx: HTN, hypercholesterolemia, coronary artery disease status post CABG at [facility] recently PSHx: 4 c-sectons, pericardial window at 18 years old Meds: Reviewed Allergies: NKDA Social: denies tobacco and illicit drug use. Occasional alcohol use. Lives alone. Family Hx: Maternal grandmother colon cancer, mother- cervical cancer. Proxy: Gerson Aburtoer [phone] Code status: full code Review of Systems - Review of Systems All systems: reviewed and no additional remarkable complaints except (Complaining of weakness and poor appetite) Past Patient History - Infectious Disease Hx of Infectious Diseases: None - Past Social History Smoking Status: Never Smoked - CARDIAC Hx Hypercholesterolemia: Yes Hx Hypertension: Yes - MUSCULOSKELETAL/RHEUMATOLOGICAL Hx Falls: No - PSYCHIATRIC Hx Substance Use: No - SURGICAL HISTORY Hx Section: Yes Other/Comment: PERICARDIAL WINDOW. COLON RESECTION - ANESTHESIA Hx Anesthesia: Yes Hx Anesthesia Reactions: No Meds Allergies/Adverse Reactions: Allergies Allergy/AdvReac Type Severity Reaction Status Date / Time No Known Allergies Allergy Verified 05/09/18 16:53 - Medications Medications: Current Medications Acetaminophen (Tylenol 325mg Tab) 650 mg PO Q6 PRN PRN Reason: Headache Last Admin: 05/09/18 22:14 Dose: 650 mg Albuterol Sulfate (Albuterol 0.042% Inhal Marleni (1.25mg/3ml) Ud) 1.25 mg INH RQ6 PRN PRN Reason: Shortness of Breath Aspirin (Aspirin Chewable) 81 mg PO DAILY [facility] Last Admin: 05/10/18 10:02 Dose: 81 mg Enoxaparin Sodium (Lovenox) 40 mg SC DAILY [facility] Last Admin: 05/10/18 10:02 Dose: 40 mg Ceftriaxone Sodium 1 gm/ (Dextrose) 100 mls @ 50 mls/30 min IVPB DAILY [facility]; Protocol Last Admin: 05/10/18 10:02 Dose: 50 mls/30 min Potassium Chloride/Dextrose/Sod Cl (Potassium Chl 20 Meq In D5-1/2ns) 1,000 mls @ 100 mls/hr IV .Q10H [facility] Last Admin: 05/10/18 12:42 Dose: 100 mls/hr Levothyroxine Sodium (Synthroid) 50 mcg PO DAILY@0630 [facility] Last Admin: 05/10/18 06:35 Dose: 50 mcg Metoprolol Tartrate (Lopressor) 12.5 mg PO BID [facility] Last Admin: 05/10/18 12:41 Dose: 12.5 mg Ondansetron HCl (Zofran Inj) 4 mg IVP Q6 PRN PRN Reason: Nausea/Vomiting Pantoprazole Sodium (Protonix Inj) 40 mg IVP DAILY [facility] Last Admin: 05/10/18 12:42 Dose: 40 mg Rosuvastatin Calcium (Crestor) 5 mg PO HS [facility] Last Admin: 05/09/18 22:48 Dose: 5 mg Physical Exam - Head Exam Head Exam: ATRAUMATIC, NORMOCEPHALIC - ENT Exam ENT Exam: Mucous Membranes Moist - Neck Exam Neck exam: Positive for: Normal Inspection - Respiratory Exam Respiratory Exam: Decreased Breath Sounds - Cardiovascular Exam Cardiovascular Exam: REGULAR RHYTHM - GI/Abdominal Exam GI & Abdominal Exam: Normal Bowel Sounds, Soft - Extremities Exam Extremities exam: Positive for: normal inspection, pedal edema Results - Vital Signs Recent Vital Signs: Last Vital Signs Temp 97.9 F 05/10/18 08:57 Pulse 89 05/10/18 12:40 Resp 22 05/10/18 08:57 BP 105/73 05/10/18 12:40 Pulse Ox 97 05/10/18 08:57 - Labs Result Diagrams: 05/10/18 10:55 05/10/18 10:55 Labs: Laboratory Results - last 24 hr 05/09/18 05/09/18 05/09/18 17:19 17:19 17:19 WBC 9.1 D RBC 4.99 Hgb 14.3 D Hct 43.2 MCV 86.5 D MCH 28.6 MCHC 33.0 RDW 19.0 H Plt Count 218 MPV 9.6 Neut % (Auto) 43.1 L Lymph % (Auto) 43.8 H Saline % (Auto) 8.4 Eos % (Auto) 3.8 Baso % (Auto) 0.9 Neut # (Auto) 3.9 Lymph # (Auto) 4.0 Saline # (Auto) 0.8 Eos # (Auto) 0.3 Baso # (Auto) 0.1 PT 14.0 H INR 1.3 APTT 41 H Sodium 137 Potassium 3.0 L Chloride 98 Carbon Dioxide 27 Anion Gap 15 BUN 5 L Creatinine 1.1 Est GFR ( Amer) > 60 Est GFR (Non-Af Amer) 50 Random Glucose 90 Calcium 9.9 Magnesium 1.5 L Total Bilirubin 0.8 AST 25 ALT 17 Alkaline Phosphatase 121 CK-MB (Mass) 0.36 Troponin I 0.0210 NT-Pro-B Natriuret Pep 702 Total Protein 8.3 Albumin 4.7 Globulin 3.6 Albumin/Globulin Ratio 1.3 Amylase Lipase TSH 3rd Generation Urine Color Urine Clarity Urine pH Ur Specific [place] Urine Protein Urine Glucose (UA) Urine Ketones Urine Blood Urine Nitrate Urine Bilirubin Urine Urobilinogen Ur Leukocyte Esterase Urine WBC (Auto) Urine RBC (Auto) Ur Squamous Epith Cells Urine Bacteria Hyaline Casts 05/10/18 05/10/18 05/10/18 10:52 10:55 10:55 WBC 5.6 RBC 4.24 Hgb 11.8 D Hct 37.5 MCV 88.4 MCH 27.9 MCHC 31.5 L RDW 18.9 H Plt Count 184 MPV 9.9 Neut % (Auto) Lymph % (Auto) Saline % (Auto) Eos % (Auto) Baso % (Auto) Neut # (Auto) Lymph # (Auto) Saline # (Auto) Eos # (Auto) Baso # (Auto) PT INR APTT Sodium 136 Potassium 4.3 Chloride 103 Carbon Dioxide 26 Anion Gap 13 BUN 7 Creatinine 1.4 H Est GFR ( Amer) 46 Est GFR (Non-Af Amer) 38 Random Glucose 82 Calcium 9.2 Magnesium Total Bilirubin 0.6 AST 21 ALT 17 Alkaline Phosphatase 88 CK-MB (Mass) Troponin I NT-Pro-B Natriuret Pep Total Protein 6.6 Albumin 4.0 Globulin 2.7 Albumin/Globulin Ratio 1.5 Amylase Lipase TSH 3rd Generation 0.02 L Urine Color Yellow Urine Clarity Hazy Urine pH 5.0 Ur Specific [place] 1.010 Urine Protein Negative Urine Glucose (UA) Normal Urine Ketones Trace Urine Blood Negative Urine Nitrate Negative Urine Bilirubin Negative Urine Urobilinogen Normal Ur Leukocyte Esterase Neg Urine WBC (Auto) 6 H Urine RBC (Auto) 1 Ur Squamous Epith Cells 13 H Urine Bacteria Occ H Hyaline Casts 0-2 05/10/18 10:55 WBC RBC Hgb Hct MCV MCH MCHC RDW Plt Count MPV Neut % (Auto) Lymph % (Auto) Saline % (Auto) Eos % (Auto) Baso % (Auto) Neut # (Auto) Lymph # (Auto) Saline # (Auto) Eos # (Auto) Baso # (Auto) PT INR APTT Sodium Potassium Chloride Carbon Dioxide Anion Gap BUN Creatinine Est GFR ( Amer) Est GFR (Non-Af Amer) Random Glucose Calcium Magnesium Total Bilirubin AST ALT Alkaline Phosphatase CK-MB (Mass) Troponin I NT-Pro-B Natriuret Pep Total Protein Albumin Globulin Albumin/Globulin Ratio Amylase < 30 L Lipase 35 TSH 3rd Generation Urine Color Urine Clarity Urine pH Ur Specific [place] Urine Protein Urine Glucose (UA) Urine Ketones Urine Blood Urine Nitrate Urine Bilirubin Urine Urobilinogen Ur Leukocyte Esterase Urine WBC (Auto) Urine RBC (Auto) Ur Squamous Epith Cells Urine Bacteria Hyaline Casts Assessment & Plan (1) Pleural effusion Status: Acute Comment: Etiology of pleural effusion not clear. Moderate right and small left pleural effusion. Patient states she had thoracentesis done post CABG. Consider thoracentesis. ProBNP level normal. On IV antibiotics (2) CAD (coronary artery disease) Status: Acute
[2018-05-10 18:17] VITALS: BMI 37.8
--- NOTE | 2018-05-10 22:13 | CP.PCM.CON ---
History of Present Illness - History of Present Illness History of Present Illness: Reason for consultation: S/P CABG, Cardiomegaly and pleural effusion 62-year-old female with history of hypertension, hypercholesterolemia, coronary artery disease status post CABG last February, Pituitary tumor status post surgery, was admitted for weakness and poor appetite for the past few days. Chest x-ray done consistent with bilateral pleural effusion right greater than left. Patient denies shortness of breath, denies cough, denies fever chills, denies night sweats, denies weight loss. PMHx: HTN, hypercholesterolemia, coronary artery disease status post CABG at [facility] recently PSHx: 4 c-sectons, pericardial window at 18 years old Meds: Reviewed Allergies: NKDA Social: denies tobacco and illicit drug use. Occasional alcohol use. Lives alone. Family Hx: Maternal grandmother colon cancer, mother- cervical cancer. Proxy: Gerson Hernandez [phone] Code status: full code Review of Systems - Review of Systems All systems: reviewed and no additional remarkable complaints except (Complaining of weakness and poor appetite) Physical Exam - Head Exam Head Exam: ATRAUMATIC, NORMOCEPHALIC - ENT Exam ENT Exam: Mucous Membranes Moist - Neck Exam Neck exam: Positive for: Normal Inspection - Respiratory Exam Respiratory Exam: Decreased Breath Sounds - Cardiovascular Exam Cardiovascular Exam: REGULAR RHYTHM - GI/Abdominal Exam GI & Abdominal Exam: Normal Bowel Sounds, Soft - Extremities Exam Extremities exam: Positive for: normal inspection, pedal edema Past Patient History - Infectious Disease Hx of Infectious Diseases: None - Past Social History Smoking Status: Never Smoked - CARDIAC Hx Hypercholesterolemia: Yes Hx Hypertension: Yes - MUSCULOSKELETAL/RHEUMATOLOGICAL Hx Falls: No - PSYCHIATRIC Hx Substance Use: No - SURGICAL HISTORY Hx Section: Yes Other/Comment: PERICARDIAL WINDOW. COLON RESECTION - ANESTHESIA Hx Anesthesia: Yes Hx Anesthesia Reactions: No Meds Allergies/Adverse Reactions: Allergies Allergy/AdvReac Type Severity Reaction Status Date / Time No Known Allergies Allergy Verified 05/09/18 16:53 - Medications Medications: Current Medications Acetaminophen (Tylenol 325mg Tab) 650 mg PO Q6 PRN PRN Reason: Headache Last Admin: 05/09/18 22:14 Dose: 650 mg Albuterol Sulfate (Albuterol 0.042% Inhal Marleni (1.25mg/3ml) Ud) 1.25 mg INH RQ6 PRN PRN Reason: Shortness of Breath Aspirin (Aspirin Chewable) 81 mg PO DAILY [facility] Last Admin: 05/10/18 10:02 Dose: 81 mg Enoxaparin Sodium (Lovenox) 40 mg SC DAILY [facility] Last Admin: 05/10/18 10:02 Dose: 40 mg Ceftriaxone Sodium 1 gm/ (Dextrose) 100 mls @ 50 mls/30 min IVPB DAILY [facility]; P rotocol Last Admin: 05/10/18 10:02 Dose: 50 mls/30 min Potassium Chloride/Dextrose/Sod Cl (Potassium Chl 20 Meq In D5-1/2ns) 1,000 mls @ 100 mls/hr IV .Q10H [facility] Last Admin: 05/10/18 22:10 Dose: Not Given Levothyroxine Sodium (Synthroid) 50 mcg PO DAILY@0630 [facility] Last Admin: 05/10/18 06:35 Dose: 50 mcg Metoprolol Tartrate (Lopressor) 12.5 mg PO BID [facility] Last Admin: 05/10/18 18:35 Dose: Not Given Ondansetron HCl (Zofran Inj) 4 mg IVP Q6 PRN PRN Reason: Nausea/Vomiting Pantoprazole Sodium (Protonix Inj) 40 mg IVP DAILY [facility] Last Admin: 05/10/18 12:42 Dose: 40 mg Rosuvastatin Calcium (Crestor) 5 mg PO HS [facility] Last Admin: 05/10/18 21:40 Dose: 5 mg Results - Vital Signs Recent Vital Signs: Last Vital Signs Temp 97.7 F 05/10/18 16:00 Pulse 81 05/10/18 18:00 Resp 20 05/10/18 16:00 BP 104/65 05/10/18 16:00 Pulse Ox 97 05/10/18 16:00 - Labs Result Diagrams: 05/10/18 10:55 05/10/18 10:55 Labs: Laboratory Results - last 24 hr 05/10/18 05/10/18 05/10/18 10:52 10:55 10:55 WBC 5.6 RBC 4.24 Hgb 11.8 D Hct 37.5 MCV 88.4 MCH 27.9 MCHC 31.5 L RDW 18.9 H Plt Count 184 MPV 9.9 Sodium 136 Potassium 4.3 Chloride 103 Carbon Dioxide 26 Anion Gap 13 BUN 7 Creatinine 1.4 H Est GFR ( Amer) 46 Est GFR (Non-Af Amer) 38 Random Glucose 82 Calcium 9.2 Total Bilirubin 0.6 AST 21 ALT 17 Alkaline Phosphatase 88 Total Protein 6.6 Albumin 4.0 Globulin 2.7 Albumin/Globulin Ratio 1.5 Amylase Lipase TSH 3rd Generation 0.02 L Urine Color Yellow Urine Clarity Hazy Urine pH 5.0 Ur Specific [place] 1.010 Urine Protein Negative Urine Glucose (UA) Normal Urine Ketones Trace Urine Blood Negative Urine Nitrate Negative Urine Bilirubin Negative Urine Urobilinogen Normal Ur Leukocyte Esterase Neg Urine WBC (Auto) 6 H Urine RBC (Auto) 1 Ur Squamous Epith Cells 13 H Urine Bacteria Occ H Hyaline Casts 0-2 05/10/18 10:55 WBC RBC Hgb Hct MCV MCH MCHC RDW Plt Count MPV Sodium Potassium Chloride Carbon Dioxide Anion Gap BUN Creatinine Est GFR ( Amer) Est GFR (Non-Af Amer) Random Glucose Calcium Total Bilirubin AST ALT Alkaline Phosphatase Total Protein Albumin Globulin Albumin/Globulin Ratio Amylase < 30 L Lipase 35 TSH 3rd Generation Urine Color Urine Clarity Urine pH Ur Specific [place] Urine Protein Urine Glucose (UA) Urine Ketones Urine Blood Urine Nitrate Urine Bilirubin Urine Urobilinogen Ur Leukocyte Esterase Urine WBC (Auto) Urine RBC (Auto) Ur Squamous Epith Cells Urine Bacteria Hyaline Casts Assessment & Plan - Assessment and Plan (Free Text) Assessment: Assessment & Plan (1) Cardiomegaly and pleural effusion Status: ? Post Cardiotomy (Marco A's syndrome) Lasix as needed Pulmonary consult appreciated Check ECHO (2) Pleural effusion Status: Acute Comment: Etiology of pleural effusion not clear. Moderate right and small left pleural effusion. Patient states she had thoracentesis done post CABG. Consider thoracentesis. ProBNP level normal. On IV antibiotics (3) CAD (coronary artery disease) Status: Acute s/p CABG (4) S/P pitiutary resection Status: Acute c/o [facility] Neuro eval
--- NOTE | 2018-05-10 22:18 | CP.PCM.HP ---
Present on Admission - Present on Admission Any Indicators Present on Admission: No Past Patient History - Infectious Disease Hx of Infectious Diseases: None - Past Social History Smoking Status: Never Smoked - CARDIAC Hx Hypercholesterolemia: Yes Hx Hypertension: Yes - MUSCULOSKELETAL/RHEUMATOLOGICAL Hx Falls: No - PSYCHIATRIC Hx Substance Use: No - SURGICAL HISTORY Hx Section: Yes Other/Comment: PERICARDIAL WINDOW. COLON RESECTION - ANESTHESIA Hx Anesthesia: Yes Hx Anesthesia Reactions: No Meds Allergies/Adverse Reactions: Allergies Allergy/AdvReac Type Severity Reaction Status Date / Time No Known Allergies Allergy Verified 05/09/18 16:53 Results - Vital Signs Recent Vital Signs: Last Vital Signs Temp 97.7 F 05/10/18 16:00 Pulse 81 05/10/18 18:00 Resp 20 05/10/18 16:00 BP 104/65 05/10/18 16:00 Pulse Ox 97 05/10/18 16:00 - Labs Result Diagrams: 05/10/18 10:55 05/10/18 10:55 Labs: Laboratory Results - last 24 hr 05/10/18 05/10/18 05/10/18 10:52 10:55 10:55 WBC 5.6 RBC 4.24 Hgb 11.8 D Hct 37.5 MCV 88.4 MCH 27.9 MCHC 31.5 L RDW 18.9 H Plt Count 184 MPV 9.9 Sodium 136 Potassium 4.3 Chloride 103 Carbon Dioxide 26 Anion Gap 13 BUN 7 Creatinine 1.4 H Est GFR ( Amer) 46 Est GFR (Non-Af Amer) 38 Random Glucose 82 Calcium 9.2 Total Bilirubin 0.6 AST 21 ALT 17 Alkaline Phosphatase 88 Total Protein 6.6 Albumin 4.0 Globulin 2.7 Albumin/Globulin Ratio 1.5 Amylase Lipase TSH 3rd Generation 0.02 L Urine Color Yellow Urine Clarity Hazy Urine pH 5.0 Ur Specific [place] 1.010 Urine Protein Negative Urine Glucose (UA) Normal Urine Ketones Trace Urine Blood Negative Urine Nitrate Negative Urine Bilirubin Negative Urine Urobilinogen Normal Ur Leukocyte Esterase Neg Urine WBC (Auto) 6 H Urine RBC (Auto) 1 Ur Squamous Epith Cells 13 H Urine Bacteria Occ H Hyaline Casts 0-2 05/10/18 10:55 WBC RBC Hgb Hct MCV MCH MCHC RDW Plt Count MPV Sodium Potassium Chloride Carbon Dioxide Anion Gap BUN Creatinine Est GFR ( Amer) Est GFR (Non-Af Amer) Random Glucose Calcium Total Bilirubin AST ALT Alkaline Phosphatase Total Protein Albumin Globulin Albumin/Globulin Ratio Amylase < 30 L Lipase 35 TSH 3rd Generation Urine Color Urine Clarity Urine pH Ur Specific [place] Urine Protein Urine Glucose (UA) Urine Ketones Urine Blood Urine Nitrate Urine Bilirubin Urine Urobilinogen Ur Leukocyte Esterase Urine WBC (Auto) Urine RBC (Auto) Ur Squamous Epith Cells Urine Bacteria Hyaline Casts
[2018-05-11] MEDS: Levothyroxine 50 MCG TAB PO SCH (05:38)
--- NOTE | 2018-05-11 05:39 | HP ---
CHIEF COMPLAINT: Weakness x2 weeks. HISTORY OF PRESENT ILLNESS: This is a 62-year-old female with history of hypertension, hyperlipidemia, coronary artery disease, status post CABG in 02/2018. The patient had 3-vessel disease with grafting, and while she was recovering from CABG, the patient had blurring of vision, and CT had showed pituitary mass, and she underwent craniotomy with removal of pituitary mass. For the last 2 weeks, she is feeling increasingly weak, tired, fatigued, mild dyspnea at rest, dyspnea on exertion. No orthopnea. No PND. She denies any cough, sore throat, or runny nose. She denies any chest pain or palpitation. She has generalized weakness or dizziness. The patient denies any shortness of breath. No cough. No sore throat. She had nausea, no vomiting, generalized weakness, blurring of vision. The patient denies any abdominal pain, nausea, vomiting, or diarrhea. She denies any polyuria, polydipsia, or polyphagia. There is no history of hematuria or pyuria. PAST MEDICAL HISTORY: Coronary artery disease, status post CABG, pituitary adenoma, hypertension, hyperlipidemia, and . SOCIAL HISTORY: She is a nonsmoker, non-EtOH user. CURRENT MEDICATIONS: At home, she is on nisoldipine, Levoxyl, metoprolol, Lipitor, Benicar, hydrochlorothiazide, and aspirin. PHYSICAL EXAMINATION: GENERAL: An elderly female in no acute distress. She is feeling better. VITAL SIGNS: Blood pressure 104/65, pulse 77, respiratory rate 20, and temperature 98.7. SKIN: Senile turgor. No bruises. No purpura. No petechiae. No ecchymoses. HEENT: Atraumatic, normocephalic. Negative pallor. Negative jaundice. Extraocular movements are intact. NECK: Supple. No JVD. No lymph nodes. No thyromegaly. No carotid bruit. CHEST WALL: Bilateral symmetrical expansion. LUNGS: Bilateral decreased air entry. No rales. No rhonchi. CARDIOVASCULAR SYSTEM: PMI not localized. S1 and S2, regular. No heave. No thrill. The patient has a midline scar which is healed, clean, and no infection in the chest chest surgery. ABDOMEN: Soft, nontender. Bowel sounds are positive. RECTAL: Refused. EXTREMITIES: No clubbing, cyanosis, or edema. CENTRAL NERVOUS SYSTEM: Awake, alert, and oriented x3. Cranial nerves II through XII are normal. Power 5/5 x4. Plantars are downgoing. ASSESSMENT: 1. Generalized weakness, most likely related to iatrogenic due to antihypertensive. We need to substantially drop our antihypertensive. 2. Coronary artery disease, status post coronary artery bypass graft. 3. Pituitary adenoma, status post craniotomy. 4. Hyperlipidemia. PLAN: Discontinue BP medication except metoprolol. Monitor the patient. Kodak Rosado MD
--- NOTE | 2018-05-11 07:01 | CP.PCM.CON ---
History of Present Illness - History of Present Illness History of Present Illness: CONSULTATION DICTATED POST PITUTARY ADENOMA RT > LT HOMONYMOUS HEMIANOPSIA PROBABLY OLD CHECK MRI/EEG Past Patient History - Infectious Disease Hx of Infectious Diseases: None - Past Social History Smoking Status: Never Smoked - CARDIAC Hx Hypercholesterolemia: Yes Hx Hypertension: Yes - MUSCULOSKELETAL/RHEUMATOLOGICAL Hx Falls: No - PSYCHIATRIC Hx Substance Use: No - SURGICAL HISTORY Hx Section: Yes Other/Comment: PERICARDIAL WINDOW. COLON RESECTION - ANESTHESIA Hx Anesthesia: Yes Hx Anesthesia Reactions: No Meds Allergies/Adverse Reactions: Allergies Allergy/AdvReac Type Severity Reaction Status Date / Time No Known Allergies Allergy Verified 05/09/18 16:53 - Medications Medications: Current Medications Acetaminophen (Tylenol 325mg Tab) 650 mg PO Q6 PRN PRN Reason: Headache Last Admin: 05/09/18 22:14 Dose: 650 mg Albuterol Sulfate (Albuterol 0.042% Inhal Marleni (1.25mg/3ml) Ud) 1.25 mg INH RQ6 PRN PRN Reason: Shortness of Breath Aspirin (Aspirin Chewable) 81 mg PO DAILY [facility] Last Admin: 05/10/18 10:02 Dose: 81 mg Enoxaparin Sodium (Lovenox) 40 mg SC DAILY [facility] Last Admin: 05/10/18 10:02 Dose: 40 mg Ceftriaxone Sodium 1 gm/ (Dextrose) 100 mls @ 50 mls/30 min IVPB DAILY [facility]; Protocol Last Admin: 05/10/18 10:02 Dose: 50 mls/30 min Potassium Chloride/Dextrose/Sod Cl (Potassium Chl 20 Meq In D5-1/2ns) 1,000 mls @ 100 mls/hr IV .Q10H [facility] Last Admin: 05/10/18 22:10 Dose: Not Given Levothyroxine Sodium (Synthroid) 50 mcg PO DAILY@0630 [facility] Last Admin: 05/11/18 05:38 Dose: 50 mcg Metoprolol Tartrate (Lopressor) 12.5 mg PO BID [facility] Last Admin: 05/10/18 18:35 Dose: Not Given Ondansetron HCl (Zofran Inj) 4 mg IVP Q6 PRN PRN Reason: Nausea/Vomiting Pantoprazole Sodium (Protonix Inj) 40 mg IVP DAILY [facility] Last Admin: 05/10/18 12:42 Dose: 40 mg Rosuvastatin Calcium (Crestor) 5 mg PO HS [facility] Last Admin: 05/10/18 21:40 Dose: 5 mg Results - Vital Signs Recent Vital Signs: Last Vital Signs Temp 98.4 F 05/10/18 23:30 Pulse 80 05/10/18 23:45 Resp 20 05/10/18 23:30 BP 91/56 L 05/10/18 23:30 Pulse Ox 97 05/10/18 23:45 - Labs Result Diagrams: 05/10/18 10:55 05/10/18 10:55 Labs: Laboratory Results - last 24 hr 05/10/18 05/10/18 05/10/18 10:52 10:55 10:55 WBC 5.6 RBC 4.24 Hgb 11.8 D Hct 37.5 MCV 88.4 MCH 27.9 MCHC 31.5 L RDW 18.9 H Plt Count 184 MPV 9.9 Sodium 136 Potassium 4.3 Chloride 103 Carbon Dioxide 26 Anion Gap 13 BUN 7 Creatinine 1.4 H Est GFR ( Amer) 46 Est GFR (Non-Af Amer) 38 Random Glucose 82 Calcium 9.2 Total Bilirubin 0.6 AST 21 ALT 17 Alkaline Phosphatase 88 Total Protein 6.6 Albumin 4.0 Globulin 2.7 Albumin/Globulin Ratio 1.5 Amylase Lipase TSH 3rd Generation 0.02 L Urine Color Yellow Urine Clarity Hazy Urine pH 5.0 Ur Specific [place] 1.010 Urine Protein Negative Urine Glucose (UA) Normal Urine Ketones Trace Urine Blood Negative Urine Nitrate Negative Urine Bilirubin Negative Urine Urobilinogen Normal Ur Leukocyte Esterase Neg Urine WBC (Auto) 6 H Urine RBC (Auto) 1 Ur Squamous Epith Cells 13 H Urine Bacteria Occ H Hyaline Casts 0-2 05/10/18 10:55 WBC RBC Hgb Hct MCV MCH MCHC RDW Plt Count MPV Sodium Potassium Chloride Carbon Dioxide Anion Gap BUN Creatinine Est GFR ( Amer) Est GFR (Non-Af Amer) Random Glucose Calcium Total Bilirubin AST ALT Alkaline Phosphatase Total Protein Albumin Globulin Albumin/Globulin Ratio Amylase < 30 L Lipase 35 TSH 3rd Generation Urine Color Urine Clarity Urine pH Ur Specific [place] Urine Protein Urine Glucose (UA) Urine Ketones Urine Blood Urine Nitrate Urine Bilirubin Urine Urobilinogen Ur Leukocyte Esterase Urine WBC (Auto) Urine RBC (Auto) Ur Squamous Epith Cells Urine Bacteria Hyaline Casts
[2018-05-11] MEDS: Potassium Ch 20mEq in D5-1/2NS 1,000 ML IV SCH ×2 (07:50→18:00)
--- NOTE | 2018-05-11 09:18 | CARD ---
APPROVED REPORT Date of service: 05/09/2018 EKG Measurement Heart [id number] <Conclusion> Normal sinus rhythm Inferior infarct, age undetermined Anterolateral infarct, age undetermined Abnormal ECG
[2018-05-11] MEDS: Enoxaparin 40 mg Syringe SC SCH (10:56)
[2018-05-11] MEDS: cefTRIAXone IV 1 gm in Dextros 1 GM in Dextrose 5% In Water 50 ML IVPB SCH (11:08)
--- NOTE | 2018-05-11 13:44 | CON ---
DATE: 05/11/2018 ATTENDING PHYSICIAN: Kodak Rosado MD LOCATION: Room 557, bed 1. REASON FOR THE CONSULTATION: Generalized weakness following surgery. HISTORY OF PRESENTING ILLNESS: Ms. Marina Hernandez is a 62-year-old right-handed -[place] female who used to be in normal health. Following surgery, she started to feel generalized weakness. No history of loss of consciousness. No history of involuntary movement. No history of fall. No history of focal weakness. The patient had been admitted in the hospital with possible pleural effusion. Since the patient had a recent brain surgery, I was called in to evaluate her. SIGNIFICANT PAST MEDICAL HISTORY: Hypertension, dyslipidemia. SURGICAL HISTORY: She did have CABG in 02/2018. Two weeks after, they found pituitary adenoma. She did have a pituitary surgery through sphenoidal approach at [facility] by Dr. Burk. PERSONAL HISTORY: Denies smoking or alcohol use. ALLERGIES: NO KNOWN ALLERGIES. REVIEW OF SYSTEMS: A 12-point system being reviewed. From neuro, generalized weakness. MEDICATIONS: Aspirin, Crestor, Lopressor, Lovenox, IV fluids, Protonix, levothyroxine, and Zofran. PHYSICAL EXAMINATION: VITAL SIGNS: Blood pressure 91/56, mean artery pressure of 67, respiratory rate 16, pulse rate 80 and regular, temperature 98.4. NECK: Supple. No carotid bruits. HEART: Sounds irregular. CHEST: Fair air entry. EXTREMITIES: No edema in legs. NEUROLOGIC: Mental Status Examination: The patient is awake, alert, oriented to person, place, and time. Her speech is clear. Naming, repetition, fluency and comprehension all within normal. No retrograde or antegrade amnesia. Cranial nerve examination: Visual field right more than her left homonomous hemianopsia, more pronounced inferior quadrant than upper quadrant. Extraocular movements are normal. Pupils are reactive to light. No facial sensory deficit. No facial asymmetry. Hearing is normal. Tongue is midline. Good gag. Motor examination, outstretched hand with eyes closed, no drift noted. Power is symmetric on either side. Deep tendon reflexes, biceps, brachialis, triceps 2+ on either side. Deep tendon reflexes are trace throughout. Plantars are downgoing. Sensory examination, grossly intact. No cortical sensory loss. Coordination: Wjcfso-kdit-zdenia test is intact. Gait is normal. She is using IV pole for the support. CONCLUSION: As per my neurological examination on reviewing her history, Ms. 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 This probably is old; however, any new changes from previous injury should be ruled out. Workup, CT of the head requested, which was not done yet. The MRI of the brain to rule out any postsurgical changes, new recurrent tumor or ischemic process. EKG normal sinus rhythm. Blood workup, WBC is 5.6, hemoglobin 11.8, hematocrit 37.5, platelets are 184, PT 14, INR 1.3, PTT 41. Sodium 136, potassium 4.3, chloride 103, bicarbonate is 26, BUN 7, creatinine 1.4. Urine shows squamous epithelial cells and bacteria is occasionally seen. RECOMMENDATIONS: 1. MRI of the brain. 2. EEG. 3. Continue present management. The patient will be followed closely with you. Lenin Brown MD
--- NOTE | 2018-05-11 16:00 | CP.PCM.PN ---
Subjective - Date & Time of Evaluation Date of Evaluation: 05/11/18 Time of Evaluation: 10:00 - Subjective Subjective: Patient seen and examined Denies shortness of breath, denies fever chills Complaining of slight cough Seen by neurology Echocardiogram done Objective - Vital Signs/Intake and Output Vital Signs (last 24 hours): Temp Pulse Resp BP Pulse Ox 98.1 F 75 20 116/83 95 05/11/18 07:00 05/11/18 07:00 05/11/18 07:00 05/11/18 07:00 05/11/18 07:00 - Medications Medications: Current Medications Acetaminophen (Tylenol 325mg Tab) 650 mg PO Q6 PRN PRN Reason: Headache Last Admin: 05/11/18 11:06 Dose: 650 mg Albuterol Sulfate (Albuterol 0.042% Inhal Marleni (1.25mg/3ml) Ud) 1.25 mg INH RQ6 PRN PRN Reason: Shortness of Breath Aspirin (Aspirin Chewable) 81 mg PO DAILY [facility] Last Admin: 05/11/18 10:57 Dose: 81 mg Enoxaparin Sodium (Lovenox) 40 mg SC DAILY [facility] Last Admin: 05/11/18 10:56 Dose: 40 mg Ceftriaxone Sodium 1 gm/ (Dextrose) 100 mls @ 50 mls/30 min IVPB DAILY [facility]; Protocol Last Admin: 05/11/18 11:08 Dose: 50 mls/30 min Potassium Chloride/Dextrose/Sod Cl (Potassium Chl 20 Meq In D5-1/2ns) 1,000 mls @ 100 mls/hr IV .Q10H [facility] Last Admin: 05/11/18 07:50 Dose: Not Given Levothyroxine Sodium (Synthroid) 50 mcg PO DAILY@0630 [facility] Last Admin: 05/11/18 05:38 Dose: 50 mcg Metoprolol Tartrate (Lopressor) 12.5 mg PO BID [facility] Last Admin: 05/11/18 10:57 Dose: 12.5 mg Ondansetron HCl (Zofran Inj) 4 mg IVP Q6 PRN PRN Reason: Nausea/Vomiting Last Admin: 05/11/18 08:41 Dose: 4 mg Pantoprazole Sodium (Protonix Inj) 40 mg IVP DAILY [facility] Last Admin: 05/11/18 10:57 Dose: 40 mg Rosuvastatin Calcium (Crestor) 5 mg PO [facility] Last Admin: 05/10/18 21:40 Dose: 5 mg - Labs Labs: 05/10/18 10:55 05/10/18 10:55 PT 14.0 SECONDS (9.7-12.2) H 05/09/18 17:19 INR 1.3 05/09/18 17:19 APTT 41 SECONDS (21-34) H 05/09/18 17:19 - Head Exam Head Exam: ATRAUMATIC, NORMOCEPHALIC - ENT Exam ENT Exam: Mucous Membranes Moist - Neck Exam Neck Exam: Normal Inspection - Respiratory Exam Respiratory Exam: Decreased Breath Sounds - Cardiovascular Exam Cardiovascular Exam: REGULAR RHYTHM - GI/Abdominal Exam GI & Abdominal Exam: Soft, Normal Bowel Sounds Assessment and Plan (1) Pleural effusion Assessment & Plan: IR for thoracentesis Fluid analysis Follow-up echocardiogram Status: Acute (2) CAD (coronary artery disease) Status: Acute
--- NOTE | 2018-05-11 18:01 | CP.PCM.PN ---
<Nataly Yost - Last Filed: 05/11/18 17:51> Subjective - Date & Time of Evaluation Date of Evaluation: 05/11/18 Time of Evaluation: 08:00 - Subjective Subjective: Cardiology Progress Note for Dr. Bermudez: Patient was seen and examined at bedside in the AM. Patient currently denies chest pain, SOB, palpitations, fever, chill, cough, nausea, vomiting, diarrhea, or constipation. Objective - Vital Signs/Intake and Output Vital Signs (last 24 hours): Temp Pulse Resp BP Pulse Ox 97.8 F 72 20 110/74 95 05/11/18 15:00 05/11/18 15:00 05/11/18 15:00 05/11/18 15:00 05/11/18 15:00 - Medications Medications: Current Medications Acetaminophen (Tylenol 325mg Tab) 650 mg PO Q6 PRN PRN Reason: Headache Last Admin: 05/11/18 11:06 Dose: 650 mg Albuterol Sulfate (Albuterol 0.042% Inhal Marleni (1.25mg/3ml) Ud) 1.25 mg INH RQ6 PRN PRN Reason: Shortness of Breath Aspirin (Aspirin Chewable) 81 mg PO DAILY [facility] Last Admin: 05/11/18 10:57 Dose: 81 mg Enoxaparin Sodium (Lovenox) 40 mg SC DAILY [facility] Last Admin: 05/11/18 10:56 Dose: 40 mg Ceftriaxone Sodium 1 gm/ (Dextrose) 100 mls @ 50 mls/30 min IVPB DAILY [facility]; Protocol Last Admin: 05/11/18 11:08 Dose: 50 mls/30 min Potassium Chloride/Dextrose/Sod Cl (Potassium Chl 20 Meq In D5-1/2ns) 1,000 mls @ 100 mls/hr IV .Q10H [facility] Last Admin: 05/11/18 07:50 Dose: Not Given Levothyroxine Sodium (Synthroid) 50 mcg PO DAILY@0630 [facility] Last Admin: 05/11/18 05:38 Dose: 50 mcg Metoprolol Tartrate (Lopressor) 12.5 mg PO BID [facility] Last Admin: 05/11/18 10:57 Dose: 12.5 mg Ondansetron HCl (Zofran Inj) 4 mg IVP Q6 PRN PRN Reason: Nausea/Vomiting Last Admin: 05/11/18 08:41 Dose: 4 mg Pantoprazole Sodium (Protonix Inj) 40 mg IVP DAILY [facility] Last Admin: 05/11/18 10:57 Dose: 40 mg Rosuvastatin Calcium (Crestor) 5 mg PO HS [facility] Last Admin: 05/10/18 21:40 Dose: 5 mg - Labs Labs: 05/10/18 10:55 05/10/18 10:55 PT 14.0 SECONDS (9.7-12.2) H 05/09/18 17:19 INR 1.3 05/09/18 17:19 APTT 41 SECONDS (21-34) H 05/09/18 17:19 - Constitutional Appears: No Acute Distress - Head Exam Head Exam: ATRAUMATIC, NORMAL INSPECTION - Eye Exam Eye Exam: EOMI, Normal appearance - ENT Exam ENT Exam: Mucous Membranes Moist - Respiratory Exam Respiratory Exam: Decreased Breath Sounds (decreased bilateral lower lung sounds ), NORMAL BREATHING PATTERN. absent: Rales, Rhonchi, Wheezes - Cardiovascular Exam Cardiovascular Exam: REGULAR RHYTHM, +S1, +S2 - GI/Abdominal Exam GI & Abdominal Exam: Soft, Normal Bowel Sounds. absent: Tenderness - Extremities Exam Extremities Exam: Normal Inspection. absent: Pedal Edema, Tenderness - Neurological Exam Neurological Exam: Alert, Awake, Oriented x3 - Psychiatric Exam Psychiatric exam: Normal Affect Assessment and Plan - Assessment and Plan (Free Text) Assessment: Pleural Effusion - Pulm Consult: Dr. Mcleod --> help appreciated - per Dr. Mcleod patient may need a thoracentesis - Albuterol sulfate 1.25 mg INH - Chest CT (05/09/18): Bilateral pleural effusions are identified moderate right and mild at the left exerting compression atelectasis at the bilateral lower lobes. Cardiomegaly without pulmonary vascular congestion. - ProBNP 702 - ECHO: negative for pericardial effusion History of CAD - s/p CABG (3 vessel disease) - Medications: * Crestor 5 mg PO HS * Aspirin 81 mg * Metoprolol 12.5 PO BID History of HTN - Metoprolol 12.5mg po bid History of HLD - Crestor 5mg po HS - f/u lipid panel and a1C History of Pituitary Adenoma - s/p craniotomy with pituitary resection - Low TSH (0.02), f/u T3, T4 levels - Levothyroxine 50 mcg daily Case discussed with Dr. Aidan Yost PGY-2 <Olman Bermudez - Last Filed: 05/11/18 23:39> Objective - Vital Signs/Intake and Output Vital Signs (last 24 hours): Temp Pulse Resp BP Pulse Ox 97.8 F 72 20 110/74 95 05/11/18 15:00 05/11/18 15:00 05/11/18 15:00 05/11/18 15:00 05/11/18 15:00 - Medications Medications: Current Medications Acetaminophen (Tylenol 325mg Tab) 650 mg PO Q6 PRN PRN Reason: Headache Last Admin: 05/11/18 11:06 Dose: 650 mg Albuterol Sulfate (Albuterol 0.042% Inhal Marleni (1.25mg/3ml) Ud) 1.25 mg INH RQ6 PRN PRN Reason: Shortness of Breath Aspirin (Aspirin Chewable) 81 mg PO DAILY [facility] Last Admin: 05/11/18 10:57 Dose: 81 mg Enoxaparin Sodium (Lovenox) 40 mg SC DAILY [facility] Last Admin: 05/11/18 10:56 Dose: 40 mg Dextrose/Sodium Chloride (Dextrose 5%/0.45% Ns 1000 Ml) 1,000 mls @ 70 mls/hr IV .[id number] [facility] Last Admin: 05/11/18 19:18 Dose: 70 mls/hr Levothyroxine Sodium (Synthroid) 50 mcg PO DAILY@0630 [facility] Last Admin: 05/11/18 05:38 Dose: 50 mcg Metoprolol Tartrate (Lopressor) 12.5 mg PO BID [facility] Last Admin: 05/11/18 18:00 Dose: 12.5 mg Ondansetron HCl (Zofran Inj) 4 mg IVP Q6 PRN PRN Reason: Nausea/Vomiting Last Admin: 05/11/18 08:41 Dose: 4 mg Pantoprazole Sodium (Protonix Inj) 40 mg IVP DAILY [facility] Last Admin: 05/11/18 10:57 Dose: 40 mg Rosuvastatin Calcium (Crestor) 5 mg PO HS [facility] Last Admin: 05/11/18 22:24 Dose: 5 mg - Labs Labs: 05/10/18 10:55 05/10/18 10:55 PT 14.0 SECONDS (9.7-12.2) H 05/09/18 17:19 INR 1.3 02/02/19 17:19 APTT 41 SECONDS (21-34) H 05/09/18 17:19 Assessment and Plan - Assessment and Plan (Free Text) Assessment: Patient seen and evaluated personally by me. Plan of care d/w the resident and as documented
[2018-05-11] MEDS: Dextrose 5%/0.45% NS 1,000 ML IV SCH (19:18)
--- NOTE | 2018-05-11 22:44 | CP.PCM.PN ---
Subjective - Date & Time of Evaluation Date of Evaluation: 05/11/18 Time of Evaluation: 08:00 - Subjective Subjective: dictated Objective - Vital Signs/Intake and Output Vital Signs (last 24 hours): Temp Pulse Resp BP Pulse Ox 97.8 F 72 20 110/74 95 05/11/18 15:00 05/11/18 15:00 05/11/18 15:00 05/11/18 15:00 05/11/18 15:00 - Medications Medications: Current Medications Acetaminophen (Tylenol 325mg Tab) 650 mg PO Q6 PRN PRN Reason: Headache Last Admin: 05/11/18 11:06 Dose: 650 mg Albuterol Sulfate (Albuterol 0.042% Inhal Marleni (1.25mg/3ml) Ud) 1.25 mg INH RQ6 PRN PRN Reason: Shortness of Breath Aspirin (Aspirin Chewable) 81 mg PO DAILY [facility] Last Admin: 05/11/18 10:57 Dose: 81 mg Enoxaparin Sodium (Lovenox) 40 mg SC DAILY [facility] Last Admin: 05/11/18 10:56 Dose: 40 mg Dextrose/Sodium Chloride (Dextrose 5%/0.45% Ns 1000 Ml) 1,000 mls @ 70 mls/hr IV .[id number] [facility] Last Admin: 05/11/18 19:18 Dose: 70 mls/hr Levothyroxine Sodium (Synthroid) 50 mcg PO DAILY@0630 [facility] Last Admin: 05/11/18 05:38 Dose: 50 mcg Metoprolol Tartrate (Lopressor) 12.5 mg PO BID [facility] Last Admin: 05/11/18 18:00 Dose: 12.5 mg Ondansetron HCl (Zofran Inj) 4 mg IVP Q6 PRN PRN Reason: Nausea/Vomiting Last Admin: 05/11/18 08:41 Dose: 4 mg Pantoprazole Sodium (Protonix Inj) 40 mg IVP DAILY [facility] Last Admin: 05/11/18 10:57 Dose: 40 mg Rosuvastatin Calcium (Crestor) 5 mg PO HS [facility] Last Admin: 05/11/18 22:24 Dose: 5 mg - Labs Labs: 05/10/18 10:55 05/10/18 10:55 PT 14.0 SECONDS (9.7-12.2) H 05/09/18 17:19 INR 1.3 05/09/18 17:19 APTT 41 SECONDS (21-34) H 05/09/18 17:19
--- NOTE | 2018-05-12 04:42 | PN ---
DATE: 05/11/2018 SUBJECTIVE: The patient, Ms. Hernandez is feeling better. She is on antibiotics. No fever. No chills. The patient is for thoracentesis, seen by Pulmonary. PHYSICAL EXAMINATION: VITAL SIGNS: Blood pressure 110/74, pulse 73, respiratory rate 20, and temperature 97.8. LUNGS: Bilaterally decreased air entry at the bases. No rales. No rhonchi. CVS: S1 and S2. Regular. ABDOMEN: Soft, nontender. Bowel sounds are positive. ASSESSMENT: 1. Bilateral pleural effusion. The patient is for thoracentesis. The patient has history of thoracentesis before also. 2. Poorly controlled diabetes. The patient is off all antihypertensive medication and she is doing well. 3. Pituitary adenoma. 4. Coronary artery disease, status post coronary artery bypass graft. PLAN: Continue to monitor blood pressure, thoracentesis, antibiotic, and monitor the patient. Kodak Rosado MD
[2018-05-12] MEDS: Levothyroxine 50 MCG TAB PO SCH (06:42)
--- NOTE | 2018-05-12 08:01 | EEG ---
DATE: 05/11/2018 This is a 16-channel electroencephalogram of an awake adult. During the study, photic stimulation was performed. Hyperventilation was not performed. The resting electroencephalogram consists of 30 to 40 microvolt moderate voltage high theta activity seen at the parietal and occipital leads. These activities changes to form 9 to 13 moderate voltage alpha activity seen at parietal and occipital leads. Intermittent movement artifact contaminated the background activities. The photic stimulation did not evoke driving response noted at 2 to 20 Hz. IMPRESSION: This is a normal electroencephalogram of awake and a drowsy adult. During the study, neither electroencephalographic paroxysmal activities nor focal slowing noted. Lenin Brown MD
[2018-05-12] MEDS: Dextrose 5%/0.45% NS 1,000 ML IV SCH (08:14)
[2018-05-12 09:05] LABS: T3 1.34 nmol/L (1.49-2.60)
[2018-05-12] MEDS ORDERED: Levothyroxine 50 MCG TAB PO SCH (11:27)
--- NOTE | 2018-05-12 12:04 | CP.PCM.PN ---
<Nataly Yost - Last Filed: 05/12/18 17:13> Subjective - Date & Time of Evaluation Date of Evaluation: 05/12/18 Time of Evaluation: 10:00 - Subjective Subjective: Cardiology Progress Note for Dr. Bermudez: Patient was seen and examined at bedside in the AM. Patient currently denies chest pain, SOB, palpitations, fever, chill, cough, nausea, vomiting, diarrhea, or constipation. Objective - Vital Signs/Intake and Output Vital Signs (last 24 hours): Temp Pulse Resp BP Pulse Ox 97.9 F 94 H 20 112/80 99 05/12/18 09:10 05/12/18 09:10 05/12/18 09:10 05/12/18 09:10 05/12/18 09:10 Intake and Output: 05/12/18 05/12/18 06:59 18:59 Intake Total 810 Balance 810 - Medications Medications: Current Medications Acetaminophen (Tylenol 325mg Tab) 650 mg PO Q6 PRN PRN Reason: Headache Last Admin: 05/11/18 11:06 Dose: 650 mg Albuterol Sulfate (Albuterol 0.042% Inhal Marleni (1.25mg/3ml) Ud) 1.25 mg INH RQ6 PRN PRN Reason: Shortness of Breath Aspirin (Aspirin Chewable) 81 mg PO DAILY [facility] Last Admin: 05/12/18 10:14 Dose: 81 mg Heparin Sodium (Porcine) (Heparin) 5,000 units SC Q12H [facility] Last Admin: 05/12/18 10:14 Dose: 5,000 units Levothyroxine Sodium (Synthroid) 25 mcg PO DAILY@0630 [facility] Metoprolol Tartrate (Lopressor) 25 mg PO BID [facility] Ondansetron HCl (Zofran Inj) 4 mg IVP Q6 PRN PRN Reason: Nausea/Vomiting Last Admin: 05/12/18 07:45 Dose: 4 mg Rosuvastatin Calcium (Crestor) 5 mg PO HS [facility] Last Admin: 05/11/18 22:24 Dose: 5 mg - Labs Labs: 05/10/18 10:55 05/10/18 10:55 PT 14.0 SECONDS (9.7-12.2) H 05/09/18 17:19 INR 1.3 05/09/18 17:19 APTT 41 SECONDS (21-34) H 05/09/18 17:19 - Constitutional Appears: No Acute Distress - Head Exam Head Exam: ATRAUMATIC, NORMAL INSPECTION - Eye Exam Eye Exam: EOMI, Normal appearance - ENT Exam ENT Exam: Mucous Membranes Moist - Respiratory Exam Respiratory Exam: Decreased Breath Sounds (right lower lung), NORMAL BREATHING PATTERN - Cardiovascular Exam Cardiovascular Exam: REGULAR RHYTHM, +S1, +S2 - GI/Abdominal Exam GI & Abdominal Exam: Soft, Normal Bowel Sounds. absent: Tenderness - Extremities Exam Extremities Exam: Normal Inspection - Neurological Exam Neurological Exam: Alert, Awake, Oriented x3 - Psychiatric Exam Psychiatric exam: Normal Affect Assessment and Plan - Assessment and Plan (Free Text) Assessment: Pleural Effusion - Pulm Consult: Dr. Mcleod --> help appreciated - s/p thoracentesis 05/12/18 --> removed 560cc of fluid - Albuterol sulfate 1.25 mg INH - Chest CT (05/09/18): Bilateral pleural effusions are identified moderate right and mild at the left exerting compression atelectasis at the bilateral lower lobes. Cardiomegaly without pulmonary vascular congestion. - ProBNP 702 - ECHO: negative for pericardial effusion History of CAD - s/p CABG (3 vessel disease) - Medications: * Crestor 5 mg PO HS * Aspirin 81 mg * Metoprolol 12.5 PO BID History of HTN - Metoprolol 12.5mg po bid History of HLD - Crestor 5mg po HS - Lipid panel: total cholesterol 163; LDL 89; HDL 41; Triglycerides 139 and ha1C 5.7 History of Pituitary Adenoma - s/p craniotomy with pituitary resection - Low TSH (0.02), Low T3 (1.34), WNL T4 (1.62) - Levothyroxine 50 mcg daily No further cardiac intervention at this time. Case discussed with Dr. Aidan Yost PGY-2 <Olman Bermudez - Last Filed: 05/12/18 22:59> Objective - Vital Signs/Intake and Output Vital Signs (last 24 hours): Temp Pulse Resp BP Pulse Ox 97.9 F 87 20 112/78 95 05/12/18 15:15 05/12/18 17:10 05/12/18 15:15 05/12/18 17:10 05/12/18 15:15 Intake and Output: 05/12/18 05/13/18 18:59 06:59 Intake Total 1090 Balance 1090 - Medications Medications: Current Medications Acetaminophen (Tylenol 325mg Tab) 650 mg PO Q6 PRN PRN Reason: Headache Last Admin: 05/11/18 11:06 Dose: 650 mg Albuterol Sulfate (Albuterol 0.042% Inhal Marleni (1.25mg/3ml) Ud) 1.25 mg INH RQ6 PRN PRN Reason: Shortness of Breath Aspirin (Aspirin Chewable) 81 mg PO DAILY [facility] Last Admin: 05/12/18 10:14 Dose: 81 mg Heparin Sodium (Porcine) (Heparin) 5,000 units SC Q12H [facility] Last Admin: 05/12/18 21:32 Dose: 5,000 units Levothyroxine Sodium (Synthroid) 25 mcg PO DAILY@0630 [facility] Metoprolol Tartrate (Lopressor) 25 mg PO BID [facility] Last Admin: 05/12/18 17:51 Dose: Not Given Ondansetron HCl (Zofran Inj) 4 mg IVP Q6 PRN PRN Reason: Nausea/Vomiting Last Admin: 05/12/18 07:45 Dose: 4 mg Rosuvastatin Calcium (Crestor) 5 mg PO HS [facility] Last Admin: 05/12/18 21:32 Dose: 5 mg - Labs Labs: 05/10/18 10:55 05/10/18 10:55 PT 14.0 SECONDS (9.7-12.2) H 05/09/18 17:19 INR 1.3 05/09/18 17:19 APTT 41 SECONDS (21-34) H 05/09/18 17:19 Assessment and Plan - Assessment and Plan (Free Text) Assessment: Patient seen and evaluated personally by me. Plan of care d/w the resident and as documented
--- NOTE | 2018-05-12 12:22 | CARD ---
APPROVED REPORT Date of service: 05/11/2018 EXAM: Two-dimensional and M-mode echocardiogram with Doppler and color Doppler. INDICATION Pleural Effusion CAD RISK FACTORS Hypertension Hyperlipidemia 2D DIMENSIONS IVSd0.7 (0.7-1.1cm)LVDd3.3 (3.9-5.9cm) PWd0.8 (0.7-1.1cm)LA [id number] (18-58mL) LVDs2.5 (2.5-4.0cm)FS (%) 23.4 % LVEF (%)48.1 (>50%)LVEF (Daniel's)59.62 % M-Mode DIMENSIONS Left Atrium (MM)3.57 (2.5-4.0cm)IVSd0.81 (0.7-1.1cm) Aortic Root3.15 (2.2-3.7cm)LVDd4.17 (4.0-5.6cm) Aortic Cusp Exc.1.92 (1.5-2.0cm)PWd0.77 (0.7-1.1cm) FS (%) 22 %LVDs3.25 (2.0-3.8cm) LVEF (%)45 (>50%) Mitral Valve MV E Whdzncah32.7cm/sMV A Nbuatcso12.1cm/sE/A ratio0.9 TDI Lateral E' Peak V7.13cm/sMedial E' Peak V5.38cm/sE/Lateral E'9.9 E/Medial E'13.1 Tricuspid Valve TR Peak [id number]/sTR Peak [id number] <Conclusion> Technically very limited sudy Left ventricle: thickness: normal; size: normal; overall ejection fraction: 55%: diastolic filling pressures: normal Mitral valve: annulus: normal: leaflets: normal: excursion: normal; no significant trans-mitral gradient: no significant incompetence: left atrium: normal Aortic valve: leaflets: calcific thickening of the non coronary cusp excursion: normal; no significant trans-aortic gradient: No significant incompetence: aortic root: normal Right sided Structures: Pulmonary valve: normal; no significant incompetence; Tricuspid valve: normal; no significant incompetence: Intra-cardiac hemodynamics: pulmonary systolic pressures: normal; central venous pressures: normal No pericardial effusion
--- NOTE | 2018-05-12 12:26 | PCM.SURG1 ---
Surgeon's Initial Post Op Note - Surgeon's Notes Surgeon: Cezar Montanez MD Upper Cutter: NONE Type of Anesthesia: Local Pre-Operative Diagnosis: Pleural effusion Operative Findings: US showed a small right effusion Post-Operative Diagnosis: Pleural effusion Operation Performed: US guided right thoracentesis Specimen/Specimens Removed: 560 cc of straw colored fluid Estimated Blood Loss: EBL {In ML}: 0 Blood Products Given: N/A Drains Used: No Drains Date of Surgery/Procedure: 05/12/18 Time of Surgery/Procedure: 12:00
--- NOTE | 2018-05-12 13:55 | RAD ---
Date of service: 05/12/2018 HISTORY: s/p thoracentesis COMPARISON: 05/09/2018 TECHNIQUE: Chest PA and lateral FINDINGS: LUNGS: The moderate left and the smaller right pleural effusions are hree noted. Size a left pleural effusion appears larger than before right pleural effusion also appears slightly increased since the prior exam. Bibasilar compressive atelectasis inferred left greater than right PLEURA: Bilateral pleural effusions as above. No pneumothorax appreciated CARDIOVASCULAR: No aortic atherosclerotic calcification present. Cardiomegaly-similar No significant appearing pulmonary venous congestion. OSSEOUS STRUCTURES: Midline sternotomy and coronary artery bypass surgery status hree suggested. VISUALIZED UPPER ABDOMEN: Normal. OTHER FINDINGS: None. IMPRESSION: No interval pneumothorax-per history status post recent thoracentesis. Compared to the 05/09/2018, bilateral pleural effusions are again noted and appear slightly increased since prior exam. Inferred bibasilar compressive atelectasis. Concomitant basilar infiltrate and/or other basal consolidative process not excluded. Other findings as above.
[2018-05-12 14:27] LABS: BODY FLUID TYPE PLEURAL
[2018-05-12 15:17] LABS: BF GROSS APPEARANCE SL CLOUDY (CLEAR)
[2018-05-12 15:19] LABS: BODY FLUID MONO/MACROPHAGE 5 % (0-0); BODY FLUID TOTAL COUNT 100 (0-0)
--- NOTE | 2018-05-12 16:44 | CP.PCM.PN ---
Subjective - Date & Time of Evaluation Date of Evaluation: 05/12/18 Time of Evaluation: 11:00 - Subjective Subjective: Patient seen and examined Status post thoracentesis Denies shortness of breath, denies cough, denies fever chills Patient states weakness is much better and is completely asymptomatic Objective - Vital Signs/Intake and Output Vital Signs (last 24 hours): Temp Pulse Resp BP Pulse Ox 97.9 F 74 20 137/92 H 98 05/12/18 09:10 05/12/18 13:04 05/12/18 13:04 05/12/18 10:14 05/12/18 13:04 Intake and Output: 05/12/18 05/12/18 06:59 18:59 Intake Total 1090 Balance 1090 - Medications Medications: Current Medications Acetaminophen (Tylenol 325mg Tab) 650 mg PO Q6 PRN PRN Reason: Headache Last Admin: 05/11/18 11:06 Dose: 650 mg Albuterol Sulfate (Albuterol 0.042% Inhal Marleni (1.25mg/3ml) Ud) 1.25 mg INH RQ6 PRN PRN Reason: Shortness of Breath Aspirin (Aspirin Chewable) 81 mg PO DAILY [facility] Last Admin: 05/12/18 10:14 Dose: 81 mg Heparin Sodium (Porcine) (Heparin) 5,000 units SC Q12H [facility] Last Admin: 05/12/18 10:14 Dose: 5,000 units Levothyroxine Sodium (Synthroid) 25 mcg PO DAILY@0630 [facility] Metoprolol Tartrate (Lopressor) 25 mg PO BID [facility] Ondansetron HCl (Zofran Inj) 4 mg IVP Q6 PRN PRN Reason: Nausea/Vomiting Last Admin: 05/12/18 07:45 Dose: 4 mg Rosuvastatin Calcium (Crestor) 5 mg PO HS [facility] Last Admin: 05/11/18 22:24 Dose: 5 mg - Labs Labs: 05/10/18 10:55 05/10/18 10:55 PT 14.0 SECONDS (9.7-12.2) H 05/09/18 17:19 INR 1.3 05/09/18 17:19 APTT 41 SECONDS (21-34) H 05/09/18 17:19 - Head Exam Head Exam: ATRAUMATIC, NORMOCEPHALIC - ENT Exam ENT Exam: Mucous Membranes Moist - Neck Exam Neck Exam: Normal Inspection - Respiratory Exam Respiratory Exam: Clear to Ausculation Bilateral - Cardiovascular Exam Cardiovascular Exam: REGULAR RHYTHM - GI/Abdominal Exam GI & Abdominal Exam: Soft Assessment and Plan (1) Pleural effusion Assessment & Plan: Status post thoracentesis Fluid analysis Continue present treatment for now Possible discharge tomorrow Status: Acute (2) CAD (coronary artery disease) Status: Acute
--- NOTE | 2018-05-12 22:32 | CP.PCM.PN ---
Subjective - Date & Time of Evaluation Date of Evaluation: 05/12/18 Time of Evaluation: 07:20 - Subjective Subjective: dictated Objective - Vital Signs/Intake and Output Vital Signs (last 24 hours): Temp Pulse Resp BP Pulse Ox 97.9 F 87 20 112/78 95 05/12/18 15:15 05/12/18 17:10 05/12/18 15:15 05/12/18 17:10 05/12/18 15:15 Intake and Output: 05/12/18 05/13/18 18:59 06:59 Intake Total 1090 Balance 1090 - Medications Medications: Current Medications Acetaminophen (Tylenol 325mg Tab) 650 mg PO Q6 PRN PRN Reason: Headache Last Admin: 05/11/18 11:06 Dose: 650 mg Albuterol Sulfate (Albuterol 0.042% Inhal Marleni (1.25mg/3ml) Ud) 1.25 mg INH RQ6 PRN PRN Reason: Shortness of Breath Aspirin (Aspirin Chewable) 81 mg PO DAILY [facility] Last Admin: 05/12/18 10:14 Dose: 81 mg Heparin Sodium (Porcine) (Heparin) 5,000 units SC Q12H [facility] Last Admin: 05/12/18 21:32 Dose: 5,000 units Levothyroxine Sodium (Synthroid) 25 mcg PO DAILY@0630 [facility] Metoprolol Tartrate (Lopressor) 25 mg PO BID [facility] Last Admin: 05/12/18 17:51 Dose: Not Given Ondansetron HCl (Zofran Inj) 4 mg IVP Q6 PRN PRN Reason: Nausea/Vomiting Last Admin: 05/12/18 07:45 Dose: 4 mg Rosuvastatin Calcium (Crestor) 5 mg PO HS [facility] Last Admin: 05/12/18 21:32 Dose: 5 mg - Labs Labs: 05/10/18 10:55 05/10/18 10:55 PT 14.0 SECONDS (9.7-12.2) H 05/09/18 17:19 INR 1.3 05/09/18 17:19 APTT 41 SECONDS (21-34) H 05/09/18 17:19
[2018-05-13 08:16] VITALS: RESP 18; TEMP 97.7; O2SAT 99
[2018-05-13 08:54] LABS: EOS # 0.2 K/uL (0.0-0.7); EOS % 3.8 % (0.0-4.0); HEMOGLOBIN 11.5 g/dL (11.0-16.0); LYMPH % 45.8 % (20.0-40.0); MEAN CELL VOLUME 86.9 fL (81.0-99.0); MEAN CORPUSCULAR HEMOGLOBIN 28.6 pg (27.0-31.0); MEAN PLATELET VOLUME 9.5 fL (7.2-11.7); MONO # 0.4 K/uL (0.0-0.8); MONO % 10.2 % (0.0-10.0); NEUT # 1.7 K/uL (1.8-7.0); NEUT % 39.2 % (50.0-75.0); RBC 4.01 Mil/uL (3.80-5.20); RED CELL DISTRIBUTION WIDTH 18.6 % (11.5-14.5); WHITE BLOOD COUNT 4.4 K/uL (4.8-10.8)
[2018-05-13 09:03] LABS: ALB/GLOB RATIO 1.3 (1.0-2.1); ALBUMIN 3.7 g/dL (3.5-5.0); ALT/SGPT 17 U/L (9-52); AST/SGOT 25 U/L (14-36); BLOOD UREA NITROGEN 2 mg/dL (7-17); GFR NON-AFRICAN AMERICAN > 60
[2018-05-13 10:02] VITALS: BP 121/78
[2018-05-13 12:18] VITALS: PULSE 70
--- NOTE | 2018-05-13 13:59 | US ---
PROCEDURE: Date of procedure: 05/12/2018 Procedure: 1. Ultrasound-guided Right thoracentesis, CPT 60098 Medications: 8cc 1% Lidocaine HISTORY: Right pleural effusion, shortness of breath TECHNIQUE: Following informed consent ,the Patients' right chest was marked. Procedure time-out was called, and the patient was placed in the sitting position and limited ultrasound showed a small right effusion. The patient's right back was prepped and draped in the usual sterile fashion. After the skin was anesthetized with lidocaine, a drainage catheter was advanced under ultrasound guidance into the pleural space. Ultrasound-guided thoracentesis was performed. A total of 600 cubic centimeters of straw-colored fluid removed without complication. A Xeroform dressing was applied. IMPRESSION: Ultrasound guided Right thoracentesis. There were no immediate complications.
--- NOTE | 2018-05-13 14:12 | CP.PCM.PN ---
Subjective - Date & Time of Evaluation Date of Evaluation: 05/13/18 Time of Evaluation: 10:00 - Subjective Subjective: Patient seen and examined. Lying comfortably in no distress Patient is afebrile No shortness of breath, cough, fever chills Patient requesting to go home Status post thoracentesis Objective - Vital Signs/Intake and Output Vital Signs (last 24 hours): Temp Pulse Resp BP Pulse Ox 97.7 F 70 18 121/78 99 05/13/18 07:00 05/13/18 12:00 05/13/18 07:00 05/13/18 10:01 05/13/18 07:00 Intake and Output: 05/13/18 05/13/18 06:59 18:59 Intake Total 300 Balance 300 - Medications Medications: Current Medications Acetaminophen (Tylenol 325mg Tab) 650 mg PO Q6 PRN PRN Reason: Headache Last Admin: 05/11/18 11:06 Dose: 650 mg Albuterol Sulfate (Albuterol 0.042% Inhal Marleni (1.25mg/3ml) Ud) 1.25 mg INH RQ6 PRN PRN Reason: Shortness of Breath Aspirin (Aspirin Chewable) 81 mg PO DAILY [facility] Last Admin: 05/13/18 10:01 Dose: 81 mg Heparin Sodium (Porcine) (Heparin) 5,000 units SC Q12H [facility] Last Admin: 05/13/18 10:00 Dose: 5,000 units Levothyroxine Sodium (Synthroid) 25 mcg PO DAILY@0630 [facility] Last Admin: 05/13/18 05:35 Dose: 25 mcg Metoprolol Tartrate (Lopressor) 25 mg PO BID [facility] Last Admin: 05/13/18 10:01 Dose: 25 mg Ondansetron HCl (Zofran Inj) 4 mg IVP Q6 PRN PRN Reason: Nausea/Vomiting Last Admin: 05/12/18 07:45 Dose: 4 mg Rosuvastatin Calcium (Crestor) 5 mg PO HS [facility] Last Admin: 05/12/18 21:32 Dose: 5 mg - Labs Labs: 05/13/18 08:36 05/13/18 08:36 PT 14.0 SECONDS (9.7-12.2) H 05/09/18 17:19 INR 1.3 05/09/18 17:19 APTT 41 SECONDS (21-34) H 05/09/18 17:19 - Head Exam Head Exam: ATRAUMATIC, NORMOCEPHALIC - ENT Exam ENT Exam: Mucous Membranes Moist - Neck Exam Neck Exam: Normal Inspection - Respiratory Exam Respiratory Exam: Decreased Breath Sounds - Cardiovascular Exam Cardiovascular Exam: REGULAR RHYTHM - GI/Abdominal Exam GI & Abdominal Exam: Soft, Normal Bowel Sounds Assessment and Plan (1) Pleural effusion Assessment & Plan: Status post thoracentesis Pending fluid analysis report Patient requesting to go home Follow-up in the office Status: Acute (2) CAD (coronary artery disease) Status: Acute
--- NOTE | 2018-05-13 14:20 | CP.PCM.PN ---
Subjective - Date & Time of Evaluation Date of Evaluation: 05/13/18 Time of Evaluation: 14:20 Objective - Vital Signs/Intake and Output Vital Signs (last 24 hours): Temp Pulse Resp BP Pulse Ox 97.7 F 70 18 121/78 99 05/13/18 07:00 05/13/18 12:00 05/13/18 07:00 05/13/18 10:01 05/13/18 07:00 Intake and Output: 05/13/18 05/13/18 06:59 18:59 Intake Total 300 Balance 300 - Medications Medications: Current Medications Acetaminophen (Tylenol 325mg Tab) 650 mg PO Q6 PRN PRN Reason: Headache Last Admin: 05/11/18 11:06 Dose: 650 mg Albuterol Sulfate (Albuterol 0.042% Inhal Marleni (1.25mg/3ml) Ud) 1.25 mg INH RQ6 PRN PRN Reason: Shortness of Breath Aspirin (Aspirin Chewable) 81 mg PO DAILY [facility] Last Admin: 05/13/18 10:01 Dose: 81 mg Heparin Sodium (Porcine) (Heparin) 5,000 units SC Q12H [facility] Last Admin: 05/13/18 10:00 Dose: 5,000 units Levothyroxine Sodium (Synthroid) 25 mcg PO DAILY@0630 [facility] Last Admin: 05/13/18 05:35 Dose: 25 mcg Metoprolol Tartrate (Lopressor) 25 mg PO BID [facility] Last Admin: 05/13/18 10:01 Dose: 25 mg Ondansetron HCl (Zofran Inj) 4 mg IVP Q6 PRN PRN Reason: Nausea/Vomiting Last Admin: 05/12/18 07:45 Dose: 4 mg Rosuvastatin Calcium (Crestor) 5 mg PO HS [facility] Last Admin: 05/12/18 21:32 Dose: 5 mg - Labs Labs: 05/13/18 08:36 05/13/18 08:36 PT 14.0 SECONDS (9.7-12.2) H 05/09/18 17:19 INR 1.3 05/09/18 17:19 APTT 41 SECONDS (21-34) H 05/09/18 17:19 Assessment and Plan - Assessment and Plan (Free Text) Assessment: FOLLOW UP WITH DR BARBOSA IN HIS OFFICE ----CALL FOR APPOINTMENT FOLLOW UP WITH DR THOMAS IN HIS OFFICE -----CALL FOR APPOINTMENT CONTINUE HOME MEDICATION NEW PRESCRIPTION GEVEN ZOFRAN 8 MG PO Q12H FOR 1 WEEK LASIX 20 MG PO DAILY FOR 2 WEEKS STOP TAKING BENICAR FOR NOW PER DR BARBOSA ACTIVITY TOLERATED CALL DR BARBOSA OR GO TO THE EMERGENCY ROOM IF SYMPTOM RETURN OR WORSENING
--- NOTE | 2018-05-13 15:42 | CP.PCM.PN ---
<Nataly Yost - Last Filed: 05/13/18 15:40> Subjective - Date & Time of Evaluation Date of Evaluation: 05/13/18 Time of Evaluation: 08:00 - Subjective Subjective: Cardiology Progress Note for Dr. Bermudez: Patient was seen and examined at bedside in the AM. Patient currently denies chest pain, SOB, palpitations, fever, chill, cough, nausea, vomiting, diarrhea, or constipation. Objective - Vital Signs/Intake and Output Vital Signs (last 24 hours): Temp Pulse Resp BP Pulse Ox 97.7 F 70 18 121/78 99 05/13/18 07:00 05/13/18 12:00 05/13/18 07:00 05/13/18 10:01 05/13/18 07:00 Intake and Output: 05/13/18 05/13/18 06:59 18:59 Intake Total 300 Balance 300 - Medications Medications: Current Medications Acetaminophen (Tylenol 325mg Tab) 650 mg PO Q6 PRN PRN Reason: Headache Last Admin: 05/11/18 11:06 Dose: 650 mg Albuterol Sulfate (Albuterol 0.042% Inhal Marleni (1.25mg/3ml) Ud) 1.25 mg INH RQ6 PRN PRN Reason: Shortness of Breath Aspirin (Aspirin Chewable) 81 mg PO DAILY [facility] Last Admin: 05/13/18 10:01 Dose: 81 mg Heparin Sodium (Porcine) (Heparin) 5,000 units SC Q12H [facility] Last Admin: 05/13/18 10:00 Dose: 5,000 units Levothyroxine Sodium (Synthroid) 25 mcg PO DAILY@0630 [facility] Last Admin: 05/13/18 05:35 Dose: 25 mcg Metoprolol Tartrate (Lopressor) 25 mg PO BID [facility] Last Admin: 05/13/18 10:01 Dose: 25 mg Ondansetron HCl (Zofran Inj) 4 mg IVP Q6 PRN PRN Reason: Nausea/Vomiting Last Admin: 05/12/18 07:45 Dose: 4 mg Rosuvastatin Calcium (Crestor) 5 mg PO HS [facility] Last Admin: 05/12/18 21:32 Dose: 5 mg - Labs Labs: 05/13/18 08:36 05/13/18 08:36 PT 14.0 SECONDS (9.7-12.2) H 05/09/18 17:19 INR 1.3 05/09/18 17:19 APTT 41 SECONDS (21-34) H 05/09/18 17:19 - Constitutional Appears: Non-toxic, No Acute Distress - Head Exam Head Exam: ATRAUMATIC, NORMAL INSPECTION - Eye Exam Eye Exam: EOMI, Normal appearance - ENT Exam ENT Exam: Mucous Membranes Moist - Respiratory Exam Respiratory Exam: NORMAL BREATHING PATTERN - Cardiovascular Exam Cardiovascular Exam: REGULAR RHYTHM, +S1, +S2 - GI/Abdominal Exam GI & Abdominal Exam: Soft, Normal Bowel Sounds. absent: Tenderness - Extremities Exam Extremities Exam: Normal Inspection - Neurological Exam Neurological Exam: Alert, Awake, Oriented x3 - Psychiatric Exam Psychiatric exam: Normal Affect - Skin Skin Exam: Normal Color Assessment and Plan - Assessment and Plan (Free Text) Assessment: Pleural Effusion - Pulm Consult: Dr. Mcleod --> help appreciated - s/p thoracentesis 05/12/18 --> removed 560cc of fluid - Albuterol sulfate 1.25 mg INH - Chest CT (05/09/18): Bilateral pleural effusions are identified moderate right and mild at the left exerting compression atelectasis at the bilateral lower lobes. Cardiomegaly without pulmonary vascular congestion. - ProBNP 702 - ECHO: negative for pericardial effusion History of CAD - s/p CABG (3 vessel disease) - Medications: * Crestor 5 mg PO HS * Aspirin 81 mg * Metoprolol 12.5 PO BID History of HTN - Metoprolol 12.5mg po bid History of HLD - Crestor 5mg po HS - Lipid panel: total cholesterol 163; LDL 89; HDL 41; Triglycerides 139 and ha1C 5.7 History of Pituitary Adenoma - s/p craniotomy with pituitary resection - Low TSH (0.02), Low T3 (1.34), WNL T4 (1.62) - Levothyroxine 50 mcg daily No further cardiac intervention at this time. Case discussed with Dr. Aidan Yost PGY-2 <Olman Bermudez - Last Filed: 05/13/18 22:12> Objective - Vital Signs/Intake and Output Vital Signs (last 24 hours): Temp Pulse Resp BP Pulse Ox 97.7 F 70 18 121/78 99 05/13/18 07:00 05/13/18 12:00 05/13/18 07:00 05/13/18 10:01 05/13/18 07:00 - Labs Labs: 05/13/18 08:36 05/13/18 08:36 PT 14.0 SECONDS (9.7-12.2) H 05/09/18 17:19 INR 1.3 05/09/18 17:19 APTT 41 SECONDS (21-34) H 05/09/18 17:19 Assessment and Plan - Assessment and Plan (Free Text) Assessment: Patient seen and evaluated personally by me. Plan of care d/w the medical massage therapist and as documented
--- NOTE | 2018-05-13 22:00 | CP.PCM.DIS ---
Provider - Provider Date of Admission: 05/11/18 16:58 Attending physician: Kodak Rosado MD Consults: 05/09/18 18:45 Pulmonology Consult Routine Comment: Consulting Provider: Dean Mcleod Consulting Physician: Dean Mcleod Reason for Consult: Pleural effusions 05/09/18 19:56 Cardiology Consult Routine Comment: Consulting Provider: Olman Bermudez Consulting Physician: Olman Bermudez Reason for Consult: chf 05/10/18 17:46 Neurology Consult Routine Comment: Please notify Dr. rivas Consulting Provider: Leinn Rivas Consulting Physician: Lenin Rivas Reason for Consult: Recent pitiutary surgery. c/o weakness Time Spent in preparation of Discharge (in minutes): 30 Hospital Course - Lab Results Lab Results: Micro Results 05/12/18 14:19 Other: Please Indicate Mycobacterial Culture - Preliminary 05/12/18 13:10 Pleural Fluid Gram Stain - Final 05/12/18 13:10 Pleural Fluid Body Fluid Culture - Preliminary NO GROWTH AFTER 24 HOURS 05/10/18 10:52 Urine Random Urine Culture - Final Gram Positive Cocci Most Recent Lab Values WBC 4.4 K/uL (4.8-10.8) L 05/13/18 08:36 RBC 4.01 Mil/uL (3.80-5.20) 05/13/18 08:36 Hgb 11.5 g/dL (11.0-16.0) 05/13/18 08:36 Hct 34.8 % (34.0-47.0) 05/13/18 08:36 MCV 86.9 fL (81.0-99.0) 05/13/18 08:36 MCH 28.6 pg (27.0-31.0) 05/13/18 08:36 MCHC 33.0 g/dL (33.0-37.0) 05/13/18 08:36 RDW 18.6 % (11.5-14.5) H 05/13/18 08:36 Plt Count 205 K/uL (130-400) 05/13/18 08:36 MPV 9.5 fL (7.2-11.7) 05/13/18 08:36 Neut % (Auto) 39.2 % (50.0-75.0) L 05/13/18 08:36 Lymph % (Auto) 45.8 % (20.0-40.0) H 05/13/18 08:36 [place] % (Auto) 10.2 % (0.0-10.0) H 05/13/18 08:36 Eos % (Auto) 3.8 % (0.0-4.0) 05/13/18 08:36 Baso % (Auto) 1.0 % (0.0-2.0) 05/13/18 08:36 Neut # (Auto) 1.7 K/uL (1.8-7.0) L 05/13/18 08:36 Lymph # (Auto) 2.0 K/uL (1.0-4.3) 05/13/18 08:36 [place] # (Auto) 0.4 K/uL (0.0-0.8) 05/13/18 08:36 Eos # (Auto) 0.2 K/uL (0.0-0.7) 05/13/18 08:36 Baso # (Auto) 0.0 K/uL (0.0-0.2) 05/13/18 08:36 PT 14.0 SECONDS (9.7-12.2) H 05/09/18 17:19 INR 1.3 05/09/18 17:19 APTT 41 SECONDS (21-34) H 05/09/18 17:19 Sodium 137 mmol/L (132-148) 05/13/18 08:36 Potassium 3.6 mmol/L (3.6-5.2) 05/13/18 08:36 Chloride 98 mmol/L (98-107) 05/13/18 08:36 Carbon Dioxide 32 mmol/L (22-30) H 05/13/18 08:36 Anion Gap 12 (10-20) 05/13/18 08:36 BUN 2 mg/dL (7-17) L 05/13/18 08:36 Creatinine 0.8 mg/dL (0.7-1.2) 05/13/18 08:36 Est GFR ( Amer) > 60 05/13/18 08:36 Est GFR (Non-Af Amer) > 60 05/13/18 08:36 Random Glucose 82 mg/dL (65-105) 05/13/18 08:36 Hemoglobin A1c 5.7 % (4.2-6.5) 05/12/18 08:03 Calcium 9.0 mg/dl (8.6-10.4) 05/13/18 08:36 Magnesium 1.5 mg/dL (1.6-2.3) L 05/09/18 17:19 Total Bilirubin 0.4 mg/dL (0.2-1.3) 05/13/18 08:36 AST 25 U/L (14-36) 05/13/18 08:36 ALT 17 U/L (9-52) 05/13/18 08:36 Alkaline Phosphatase 86 U/L (38-126) 05/13/18 08:36 CK-MB (Mass) 0.36 ng/mL (0.0-3.38) 05/09/18 17:19 Troponin I 0.0210 ng/mL (0.00-0.120) 05/09/18 17:19 NT-Pro-B Natriuret Pep 702 pg/mL (0-900) 05/09/18 17:19 Total Protein 6.6 g/dL (6.3-8.3) 05/13/18 08:36 Albumin 3.7 g/dL (3.5-5.0) 05/13/18 08:36 Globulin 2.9 gm/dL (2.2-3.9) 05/13/18 08:36 Albumin/Globulin Ratio 1.3 (1.0-2.1) 05/13/18 08:36 Triglycerides 139 mg/dL (0-149) 05/12/18 08:03 Cholesterol 163 mg/dL (0-199) 05/12/18 08:03 LDL Cholesterol Direct 89 mg/dL (0-129) 05/12/18 08:03 HDL Cholesterol 41 mg/dL (30-70) 05/12/18 08:03 Amylase < 30 U/L (30-110) L 05/10/18 10:55 Lipase 35 U/L (23-300) 05/10/18 10:55 Free T4 1.62 ng/dL (0.78-2.19) 05/12/18 08:03 Total T3 1.34 nmol/L (1.49-2.60) L 05/12/18 08:03 TSH 3rd Generation 0.02 mIU/L (0.46-4.68) L 05/10/18 10:55 Urine Color Yellow (YELLOW) 05/10/18 10:52 Urine Clarity Hazy (Clear) 05/10/18 10:52 Urine pH 5.0 (5.0-8.0) 05/10/18 10:52 Ur Specific [place] 1.010 (1.003-1.030) 05/10/18 10:52 Urine Protein Negative mg/dL (NEGATIVE) 05/10/18 10:52 Urine Glucose (UA) Normal mg/dL (Normal) 05/10/18 10:52 Urine Ketones Trace mg/dL (NEGATIVE) 05/10/18 10:52 Urine Blood Negative (NEGATIVE) 05/10/18 10:52 Urine Nitrate Negative (NEGATIVE) 05/10/18 10:52 Urine Bilirubin Negative (NEGATIVE) 05/10/18 10:52 Urine Urobilinogen Normal mg/dL (0.2-1.0) 05/10/18 10:52 Ur Leukocyte Esterase Neg Reyna/uL (Negative) 05/10/18 10:52 Urine WBC (Auto) 6 /hpf (0-5) H 05/10/18 10:52 Urine RBC (Auto) 1 /hpf (0-3) 05/10/18 10:52 Ur Squamous Epith Cells 13 /hpf (0-5) H 05/10/18 10:52 Urine Bacteria Occ (<OCC) H 05/10/18 10:52 Hyaline Casts 0-2 /lpf (0-2) 05/10/18 10:52 Fluid Source Pleural 05/12/18 14:22 Fluid Appearance Sl cloudy (CLEAR) 05/12/18 14:22 Fluid WBC 2580.0 /mm3 (0.0-300.0) H 05/12/18 14:22 Fluid RBC 922.0 /mm3 (0.0-0.0) H 05/12/18 14:22 Fluid Tot Cell Count 100 (0-0) H 05/12/18 14:22 Fluid Neutrophils 15.0 % (0-0) H 05/12/18 14:22 Fluid Lymphocytes 80.0 % (0-0) H 05/12/18 14:22 Fld Monocyte/Macrophag 5 % (0-0) H 05/12/18 14:22 Fluid Comment 05/12/18 14:22 Discharge Exam - Head Exam Head Exam: ATRAUMATIC, NORMAL INSPECTION Discharge Plan - Discharge Medications Prescriptions: Furosemide [Lasix] 20 mg PO DAILY 4 Days tab Ondansetron ODT [Zofran ODT] 8 mg PO Q12 7 Days odt - Follow Up Plan Condition: STABLE Disposition: HOME/ ROUTINE Instructions: Heart Failure, Adult (DC), Pleural Effusion (DC), Coronary Heart Disease (DC), Furosemide, Ondansetron Additional Instructions: FOLLOW UP WITH DR ROSADO IN HIS OFFICE ----CALL FOR APPOINTMENT FOLLOW UP WITH DR MCLEOD IN HIS OFFICE -----CALL FOR APPOINTMENT CONTINUE HOME MEDICATION NEW PRESCRIPTION GEVEN ZOFRAN 8 MG PO Q12H FOR 1 WEEK LASIX 20 MG PO DAILY FOR 2 WEEKS STOP TAKING BENICAR FOR NOW PER DR ROSADO ACTIVITY TOLERATED CALL DR ROSADO OR GO TO THE EMERGENCY ROOM IF SYMPTOM RETURN OR WORSENING Referrals: Dean Mcleod MD [Staff Provider] - Olman Bermudez MD [Staff Provider] - Lenin Rivas MD [Staff Provider] - Kodak Rosado MD [Staff Provider] -
--- NOTE | 2018-05-14 06:16 | DS ---
DISCHARGE DIAGNOSES: 1. Bilateral pleural effusion. 2. Coronary artery disease, status post coronary artery bypass graft. 3. Hypertension. 4. Hypokalemia. 5. Pituitary adenoma. HISTORY OF PRESENT ILLNESS: This is a 62-year-old female, came in because of shortness of breath, weakness, low blood pressure. The patient's blood pressure medications were discontinued and the patient was placed only on metoprolol and the patient underwent thoracentesis and subsequently she was cleared by Pulmonary for discharge. CONDITION UPON DISCHARGE: Stable. The patient will be followed up as outpatient. Kodak Rosado MD
[2018-05-15 14:24] LABS: TOTAL PROTEIN PLEURAL FLUID 4.4 g/dL
== END 2018-05-13 16:09 | disposition home or self-care (01) | DRG 187 ==
LOC: C.ER 16:47 → C.9E 18:34 → C.5S 20:49 → OBSVTOIN 05-11 16:58
PROVIDERS: ADMIT Internal Medicine; ATTEND Internal Medicine
PROC: 0W993ZZ Drainage of Right Pleural Cavity, Percutaneous Approach (ICD-10-PCS; principal; 2018-05-12)
DX: J90 Pleural effusion, not elsewhere classified (principal); J98.11 Atelectasis; I24.1 Dressler's syndrome; I25.10 Atherosclerotic heart disease of native coronary artery without angina pectoris; Z95.1 Presence of aortocoronary bypass graft; E78.5 Hyperlipidemia, unspecified; E87.6 Hypokalemia; E11.65 Type 2 diabetes mellitus with hyperglycemia; D35.2 Benign neoplasm of pituitary gland; H53.462 Homonymous bilateral field defects, left side; I11.9 Hypertensive heart disease without heart failure

== ENCOUNTER 2018-05-18 10:00 | Observation (INO) | payer BC ==
[2018-05-18 10:20] VITALS: BMI 36.9
[2018-05-18 11:58] LABS: BASO # 0.1 K/uL (0.0-0.2); BASO % 0.9 % (0.0-2.0); EOS # 0.2 K/uL (0.0-0.7); EOS % 2.2 % (0.0-4.0); LYMPH # 2.6 K/uL (1.0-4.3); LYMPH % 32.3 % (20.0-40.0); MEAN CELL VOLUME 86.1 fL (81.0-99.0); MEAN CORPUSCULAR HEMOGLOBIN 29.1 pg (27.0-31.0); MEAN CORPUSCULAR HGB CONC 33.8 g/dL (33.0-37.0); MEAN PLATELET VOLUME 9.7 fL (7.2-11.7); MONO # 0.8 K/uL (0.0-0.8); MONO % 9.4 % (0.0-10.0); NEUT # 4.5 K/uL (1.8-7.0); NEUT % 55.2 % (50.0-75.0); NRBC % 0.1 % (0.0-2.0); RBC 4.63 Mil/uL (3.80-5.20); RED CELL DISTRIBUTION WIDTH 18.2 % (11.5-14.5)
[2018-05-18 12:02] LABS: HEMOGLOBIN 13.5 g/dL (11.0-16.0); WHITE BLOOD COUNT 8.1 K/uL (4.8-10.8)
[2018-05-18 12:07] LABS: INR 1.3; PROTHROMBIN TIME 14.6 SECONDS (9.7-12.2)
--- NOTE | 2018-05-18 12:18 | C.PDOC ---
History Of Present Illness 62 y/o female with PMhx of DM, B/L Pleural Effusions s/p thoracentesis last week, Heart Failure s/p CABG presents to the ER complaining of dizziness, weakness, and vomiting which has been present for the past 3 days. Patient reports nausea, vomiting 5+, lower abdominal pain, and poor appetite. Patient reports that she was recently hospitalized for similar symptoms. Denies having fever, chills, headache, abdominal pain, and diarrhea. Time Seen by Provider: 05/18/18 10:47 Chief Complaint (Nursing): GI Problem History Per: Patient History/Exam Limitations: no limitations Onset/Duration Of Symptoms: Days Current Symptoms Are (Timing): Still Present Severity: Moderate Past Medical History Reviewed: Historical Data, Nursing Documentation, Vital Signs Vital Signs: Last Vital Signs Temp Pulse 90 05/18/18 10:43 Resp 12 05/18/18 10:43 BP 116/61 05/18/18 10:43 Pulse Ox 99 05/18/18 10:43 - Medical History PMH: HTN, Hypercholesterolemia Surgical History: CABG (02/2018) [facility] DRAINAGE OF RIGHT PLEURAL CAVITY, PERCUTANEOUS APPROACH (05/11/18) FLUOROSCOPY OF LEFT HEART USING LOW OSMOLAR CONTRAST (02/09/18) FLUOROSCOPY OF MULT COR ART USING L OSM CONTRAST (02/09/18) MEASURE OF CARDIAC SAMPL & PRESSURE, L HEART, PERC APPROACH (02/09/18) Family History: States: No Known Family Hx - Social History Hx Tobacco Use: No Hx Alcohol Use: No Hx Substance Use: No - Immunization History Hx Tetanus Toxoid Vaccination: No Hx Influenza Vaccination: No Hx Pneumococcal Vaccination: No Review Of Systems Except As Marked, All Systems Reviewed And Found Negative. Constitutional: Positive for: Chills, Weakness, Malaise. Negative for: Fever Gastrointestinal: Positive for: Vomiting. Negative for: Abdominal Pain Genitourinary: Negative for: Dysuria, Hematuria Neurological: Negative for: Headache Physical Exam - Physical Exam Appears: Non-toxic Skin: Normal Color, Warm, Dry Head: Atraumatic, Normacephalic Eye(s): bilateral: Normal Inspection Nose: Normal Oral Mucosa: Moist Neck: Supple Chest: Symmetrical Cardiovascular: Rhythm Regular Respiratory: Normal Breath Sounds, No Rales, No Rhonchi, No Wheezing Gastrointestinal/Abdominal: Normal Exam, Soft, No Tenderness, No Guarding, No Rebound Neurological/Psych: Oriented x3, Normal Speech ED Course And Treatment - Laboratory Results Result Diagrams: 05/18/18 11:53 05/18/18 11:53 ECG: Interpreted By Me, Viewed By Me ECG Rhythm: Sinus Rhythm ECG Interpretation: No Changes From Prior Rate From EC O2 Sat by Pulse Oximetry: 99 (RA) Pulse Ox Interpretation: Normal - Other Rad CXR X-Ray: Viewed By Me, Read By Radiologist Interpretation: Date of service: 05/18/2018. HISTORY: SOB. COMPARISON: 05/12. TECHNIQUE: Chest PA and lateral. FINDINGS: LUNGS: No active pulmonary disease. PLEURA: Small bilateral pleural effusion. CARDIOVASCULAR: No aortic atherosclerotic calcification present. Normal heart size. Sternotomy wires are noted. No pulmonary vascular congestion. OSSEOUS STRUCTURES: No significant abnormalities. VISUALIZED UPPER ABDOMEN: Normal. OTHER FINDINGS: None. IMPRESSION: Small bilateral pleural effusion. Progress Note: Labs ordered- pending results. Fluids, Zofran, and Pepcid given. Hypokalemic- given Potassium IV. Morphine given. Patient reassessed - pain and nausea has improved but continues to feel weak. Case discussed with Dr. Chavez and patient will be admitted Disposition Discussed With Dr.: Naila Chavez Doctor Will See Patient In The: Hospital Counseled Patient/Family Regarding: Studies Performed, Diagnosis, Need For Foll owup - Disposition Disposition: HOSPITALIZED Disposition Time: 14:52 Condition: FAIR - Clinical Impression Clinical Impression: Abdominal pain, Vomiting, Hypokalemia, Pleural effusion - PA / AGING ROOM HAND / Resident Statement MD/DO has reviewed & agrees with the documentation as recorded. - Scribe Statement The provider has reviewed the documentation as recorded by the Luis Bordenq Provider Attestation All medical record entries made by the Luis were at my direction and personally dictated by me. I have reviewed the chart and agree that the record accurately reflects my personal performance of the history, physical exam, medical decision making, and the department course for this patient. I have also personally directed, reviewed, and agree with the discharge instructions and disposition. Decision To Admit - Pt Status Changed To: Hospital Disposition Of: Observation - . Bed Request Type: Telemetry Admitting Physician: Naila Chavez Patient Diagnosis: Abdominal pain, Vomiting, Hypokalemia
[2018-05-18 12:22] LABS: CK-MB < 0.22 ng/mL (0.0-3.38)
--- NOTE | 2018-05-18 12:26 | RAD ---
Date of service: 05/18/2018 HISTORY: SOB COMPARISON: 05/12/2018 TECHNIQUE: Chest PA and lateral FINDINGS: LUNGS: No active pulmonary disease. PLEURA: Small bilateral pleural effusion. CARDIOVASCULAR: No aortic atherosclerotic calcification present. Normal heart size. Sternotomy wires are noted. No pulmonary vascular congestion. OSSEOUS STRUCTURES: No significant abnormalities. VISUALIZED UPPER ABDOMEN: Normal. OTHER FINDINGS: None. IMPRESSION: Small bilateral pleural effusion.
[2018-05-18 12:56] LABS: ALB/GLOB RATIO 1.4 (1.0-2.1); ALBUMIN 4.4 g/dL (3.5-5.0); ALT/SGPT 7 U/L (9-52); AST/SGOT 31 U/L (14-36); BLOOD UREA NITROGEN 12 mg/dL (7-17); CALCIUM 8.8 mg/dl (8.6-10.4); GFR NON-AFRICAN AMERICAN 21; LIPASE 80 U/L (23-300)
[2018-05-18] MEDS ORDERED: Potassium Chloride 20 mEq ER Tab PO SCH (13:30)
[2018-05-18] MEDS ORDERED: Potassium Chloride 20 mEq 100 ML ONE ×2 (13:38→15:21)
[2018-05-18] MEDS ORDERED: Potassium Chloride 20 mEq ER Tab PO ONE ×2 (13:39→17:40)
[2018-05-18] MEDS ORDERED: Sodium Chloride 0.9% 500 ML IV ONE (14:44)
--- NOTE | 2018-05-18 14:47 | CP.PCM.HP ---
<Jose Raul Naqvi - Last Filed: 05/18/18 18:04> History of Present Illness - History of Present Illness History of Present Illness: PGY1 Medicine H and P for Dr. Chavez This is a 62 year old female with PMHx of HTN, hypercholesterolemia, NJ, CABG (triple vessel disease), prolactinoma s/p craniotomy who presents with a 2 day history of vomiting, and abdominal pain. Vomiting is described as watery material, 3 episodes yesterday and 5 episodes in the ED today. Abdominal pain is described as lower abdominal pain, intermittent, non radiating and occurring after these episodes of vomiting. Pt also endorses a 2 month history of weakness described as feeling drained and decreased appetite since her CABG in March 2018. Patient denies palpitations, shortness of breath, cough, nausea, vomiting, fever, chills, trauma, leg swelling, and recent travel. She was recently admitted for similar symptoms (05/09-05/13), and discharged on Lasix 40 mg PO daily. Pt took Lasix for 5 days, and finished it 05/17. PMD: Lashae Cardio: [facility] Pulm: [facility] Endocrinology: [place]/ [facility] PMHx: HTN, hypercholesterolemia, NJ, CABG (triple vessel disease), prolactinoma s/p craniotomy PSHx: 4 c-sections, pericardial window at 18 years old secondary to pericardial effusion, craniotomy April 2018, CABG March 2018 Meds: Metoprolol 12.5 mg PO BID, ASA 81 mg PO daily, Crestor 10 mg PO daily, Levothyroxine 50 mcg daily Allergies: NKDA Social: denies tobacco and illicit drug use. Occasional alcohol use. Lives alone. Family Hx: Maternal grandmother colon cancer, mother- cervical cancer. Proxy: Gerson Hernandez [phone] Pharmacy: [facility] Advanced directive on file. Code status: full code Present on Admission - Present on Admission Any Indicators Present on Admission: No Review of Systems - Review of Systems All systems: reviewed and no additional remarkable complaints except (as per HPI) Past Patient History - Infectious Disease Hx of Infectious Diseases: None - Past Social History Smoking Status: Never Smoked - CARDIAC Hx Hypercholesterolemia: Yes Hx Hypertension: Yes - MUSCULOSKELETAL/RHEUMATOLOGICAL Hx Falls: No - PSYCHIATRIC Hx Substance Use: No - SURGICAL HISTORY Hx Coronary Artery Bypass Graft: Yes (02/2018) - ANESTHESIA Hx Anesthesia: Yes Hx Anesthesia Reactions: No Meds Allergies/Adverse Reactions: Allergies Allergy/AdvReac Type Severity Reaction Status Date / Time No Known Allergies Allergy Verified 05/18/18 10:17 Physical Exam - Constitutional Appears: Non-toxic, No Acute Distress - Head Exam Head Exam: NORMAL INSPECTION - Eye Exam Eye Exam: EOMI, Normal appearance - ENT Exam ENT Exam: Mucous Membranes Dry - Respiratory Exam Respiratory Exam: Rales (minimally at the bases bilaterally), NORMAL BREATHING PATTERN. absent: Rhonchi, Wheezes, Respiratory Distress - Cardiovascular Exam Cardiovascular Exam: REGULAR RHYTHM, +S1, +S2. absent: Tachycardia, Diastolic murmur, Irregular Rhythm - GI/Abdominal Exam GI & Abdominal Exam: Normal Bowel Sounds, Soft (obese). absent: Distended, Firm, Guarding, Rebound, Rigid, Tenderness (on deep palpation) - Extremities Exam Extremities exam: Positive for: normal capillary refill, normal inspection, pedal pulses present. Negative for: calf tenderness, pedal edema, tenderness - Back Exam Back exam: NORMAL INSPECTION. absent: CVA tenderness (L), CVA tenderness (R) - Neurological Exam Neurological exam: Alert, CN II-XII Intact, Oriented x3 Additional comments: 5/5 strength in bilateral upper and lower extremities - Skin Skin Exam: Dry, Normal Color, Warm Additional comments: decreased skin turgor (+) well healing midline CABG scar Results - Vital Signs Recent Vital Signs: Last Vital Signs Temp 98.9 F 05/18/18 13:40 Pulse 78 05/18/18 13:40 Resp 20 05/18/18 13:40 BP 112/46 L 05/18/18 13:40 Pulse Ox 99 05/18/18 14:29 - Labs Result Diagrams: 05/18/18 11:53 05/18/18 11:53 Labs: Laboratory Results - last 24 hr 05/18/18 05/18/18 05/18/18 10:19 11:53 11:53 WBC 8.1 D RBC 4.63 Hgb 13.5 D Hct 39.9 MCV 86.1 MCH 29.1 MCHC 33.8 RDW 18.2 H Plt Count 294 MPV 9.7 Neut % (Auto) 55.2 Lymph % (Auto) 32.3 [place] % (Auto) 9.4 Eos % (Auto) 2.2 Baso % (Auto) 0.9 Neut # (Auto) 4.5 Lymph # (Auto) 2.6 [place] # (Auto) 0.8 Eos # (Auto) 0.2 Baso # (Auto) 0.1 PT 14.6 H INR 1.3 APTT 39 H Sodium Potassium Chloride Carbon Dioxide Anion Gap BUN Creatinine Est GFR ( Amer) Est GFR (Non-Af Amer) POC Glucose (mg/dL) 104 Random Glucose Calcium Total Bilirubin AST ALT Alkaline Phosphatase Total Creatine Kinase CK-MB (Mass) Troponin I Total Protein Albumin Globulin Albumin/Globulin Ratio Lipase 05/18/18 11:53 WBC RBC Hgb Hct MCV MCH MCHC RDW Plt Count MPV Neut % (Auto) Lymph % (Auto) [place] % (Auto) Eos % (Auto) Baso % (Auto) Neut # (Auto) Lymph # (Auto) [place] # (Auto) Eos # (Auto) Baso # (Auto) PT INR APTT Sodium 133 Potassium 2.8 L Chloride 90 L Carbon Dioxide 29 Anion Gap 17 BUN 12 Creatinine 2.3 H Est GFR ( Amer) 26 Est GFR (Non-Af Amer) 21 POC Glucose (mg/dL) Random Glucose 99 D Calcium 8.8 Total Bilirubin 0.6 AST 31 ALT 7 L D Alkaline Phosphatase 89 Total Creatine Kinase 54 CK-MB (Mass) < 0.22 Troponin I 0.0390 Total Protein 7.7 Albumin 4.4 Globulin 3.2 Albumin/Globulin Ratio 1.4 Lipase 80 Assessment & Plan - Assessment and Plan (Free Text) Assessment: This is a 62 year old female with PMHx of HTN, hypercholesterolemia, NJ, CABG (triple vessel disease), prolactinoma s/p craniotomy who presents with a 2 day history of vomiting, and abdominal pain. Found to be hypokalemic and hypoma gnesemic, with VINNY; s/p oral lasix treatment. Plan: Acute Renal Failure; likely secondary to furosemide diuresis BUN/Cr is 12/2.3 On Telemetry Hold LIZANDRO/ARB Nephrology, Dr. Bryan, consulted. Recommendations appreciated. F/u UA, urine culture Bladder scan shows 30 cc F/u renal/bladder US Hypokalemia, likely secondary to furosemide diuresis Hypomagnesemia EKG shows flattened t waves with TWIs Potassium 2.8 repleted Magnesium 1.3 repleted F/u BMP, magnesium in evening F/u repeat EKG Nausea/Vomiting F/u TSH, free T4 Zofran 4 mg IVP q6h prn F/u Head CT; pt is s/p prolactinoma removal F/u prolactin level Neurochecks q4 Diabetes, controlled HgA1c is 5.7 (Feb 2018) Acuchecks q6h Hypoglycemia protocol Hx of prolactinoma F/u head ct, prolactin level Pt is on cabergoline once weekly, on hold until endocrinology evaluation Endocrinology, Dr. Schumacher, consulted. Recommendations appreciated Hx of CABG/triple vessel disease ASA 81 mg PO daily, Metoprolol tartrate 12.5 mg PO BID Avoid LIZANDRO/ARB due to acute renal failure Avoid lasix due to acute renal failure Crestor 5 mg PO QHS Cardio, Dr. Bermudez, consulted. Recommendations appreciated. troponin x1 is 0.0390; will trend x2 q6h with EKG PPX CT Head r/o bleed prior to lovenox 30 mg sc daily. Pt is ambulatory. GI ppx iwth protonix 40 mg IVP daily Fall/aspiration precautions Neurochecks q4h Pt is full code. Advanced Directive in EMR. Case discussed with Dr. Scott Naqvi PGY1 <Naila Chavez V - Last Filed: 05/18/18 22:34> Results - Vital Signs Recent Vital Signs: Last Vital Signs Temp 98.2 F 05/18/18 16:20 Pulse 79 05/18/18 16:20 Resp 20 05/18/18 16:20 BP 124/84 05/18/18 16:20 Pulse Ox 99 05/18/18 19:07 - Labs Result Diagrams: 05/18/18 11:53 05/18/18 11:53 Labs: Laboratory Results - last 24 hr 05/18/18 05/18/18 05/18/18 10:19 11:53 11:53 WBC 8.1 D RBC 4.63 Hgb 13.5 D Hct 39.9 MCV 86.1 MCH 29.1 MCHC 33.8 RDW 18.2 H Plt Count 294 MPV 9.7 Neut % (Auto) 55.2 Lymph % (Auto) 32.3 [place] % (Auto) 9.4 Eos % (Auto) 2.2 Baso % (Auto) 0.9 Neut # (Auto) 4.5 Lymph # (Auto) 2.6 [place] # (Auto) 0.8 Eos # (Auto) 0.2 Baso # (Auto) 0.1 PT 14.6 H INR 1.3 APTT 39 H Sodium Potassium Chloride Carbon Dioxide Anion Gap BUN Creatinine Est GFR ( Amer) Est GFR (Non-Af Amer) POC Glucose (mg/dL) 104 Random Glucose Calcium Phosphorus Magnesium Total Bilirubin AST ALT Alkaline Phosphatase Total Creatine Kinase CK-MB (Mass) Troponin I NT-Pro-B Natriuret Pep Total Protein Albumin Globulin Albumin/Globulin Ratio Lipase 05/18/18 05/18/18 05/18/18 11:53 15:06 17:28 WBC RBC Hgb Hct MCV MCH MCHC RDW Plt Count MPV Neut % (Auto) Lymph % (Auto) [place] % (Auto) Eos % (Auto) Baso % (Auto) Neut # (Auto) Lymph # (Auto) [place] # (Auto) Eos # (Auto) Baso # (Auto) PT INR APTT Sodium 133 Potassium 2.8 L Chloride 90 L Carbon Dioxide 29 Anion Gap 17 BUN 12 Creatinine 2.3 H Est GFR ( Amer) 26 Est GFR (Non-Af Amer) 21 POC Glucose (mg/dL) 92 Random Glucose 99 D Calcium 8.8 Phosphorus 3.1 Magnesium 1.3 L Total Bilirubin 0.6 AST 31 ALT 7 L D Alkaline Phosphatase 89 Total Creatine Kinase 54 CK-MB (Mass) < 0.22 Troponin I 0.0390 NT-Pro-B Natriuret Pep 1020 H Total Protein 7.7 Albumin 4.4 Globulin 3.2 Albumin/Globulin Ratio 1.4 Lipase 80 05/18/18 05/18/18 18:44 21:10 WBC RBC Hgb Hct MCV MCH MCHC RDW Plt Count MPV Neut % (Auto) Lymph % (Auto) [place] % (Auto) Eos % (Auto) Baso % (Auto) Neut # (Auto) Lymph # (Auto) [place] # (Auto) Eos # (Auto) Baso # (Auto) PT INR APTT Sodium Potassium Chloride Carbon Dioxide Anion Gap BUN Creatinine Est GFR ( Amer) Est GFR (Non-Af Amer) POC Glucose (mg/dL) 105 Random Glucose Calcium Phosphorus Magnesium Total Bilirubin AST ALT Alkaline Phosphatase Total Creatine Kinase 52 CK-MB (Mass) < 0.22 Troponin I 0.0250 NT-Pro-B Natriuret Pep Total Protein Albumin Globulin Albumin/Globulin Ratio Lipase Attending/Attestation - Attestation I have personally seen and examined this patient.: Yes I have fully participated in the care of the patient.: Yes I have reviewed all pertinent clinical information: Yes Notes (Text): This is 62 year old Female history of triple vessel disease s/p recent CABG performed at [facility], as well prolactinoma s/p recent craniotomy, as well as recent hospitalization for nausea/vomitting, noted pleural effusion, discharged on Lasix 40mg once a day for the past 5 days, last dose completed yesterday. Per discussion with the daughter, she was discharged on Zofran (1 we ek supply) was not resolved her symptoms. Patient has noted nausea/vomittng and associated abdominal pain secondary to the vomitting. Patient in the ED given 500cc bolus, multiple Zofran, and KCL rider. Patient noted vomittus was "dark" however no vomittus was observed at bedside nor discussed with ED Nurse Practitioner. Changed to inpatient. Bladder scan noted 30cc. unlikely obstructive uropathy; Suspecting prerenal/intrarenal given patient finished diuresis and prior benicar use. Patient would like to attempt liquid diet at bedside. Patient noted burning with the K rider at bedside; will attempt Kdur supplement; repeat electrolytes at 10PM. CT head obtained given prior hx of prolactinoma and recent head surgery; Noted postoperative changes no bleeding. Patient noted she was due for her outpatient pleating machine operator appointment today in regards to cabergoline and her hypothyroidism. Given prior a1c in february was controlled; will monitor accuchecks frequently. Will obtain cardio/renal/endocrinology/gi eval. Assessment/Plan 1) Acute Renal Failure Assessment/Plan * suspected secondary to furosemide diuresis and nausea/vomitting/ prior benicar use * Nephrology, Dr. Bryan, consulted. Recommendations appreciated. * BUN/Cr is 12/2.3 prior Cr: 0.8 * monitor on telemetry * F/u UA, urine culture * Bladder scan shows 30 cc * F/u renal/bladder US * No noted hydronephorsis/obstructing stone * Order for abdominal xray * monitor BMP/mg2+ at 10PM 2) Hypokalemia Hypomagnesemia Assessment/Plan * initial EKG shows flattened t waves with TWIs and prior Q waves * Low potassium and low magnesium; repleted * orders for BMP and Mg2+ and nursing communication provided to collect 3) Nausea/Vomiting Abdominal Pain Assessment/Plan * F/u TSH, free T4 * Zofran 4 mg IVP q6h prn * F/u Head CT; pt is s/p prolactinoma removal * prior head ct and brain mri from 2013; patient had recent neurosurgical procedure at [facility] * F/u prolactin level * Neurochecks Q4H * Gi consult * Check Abdominal xray * Prior 05/09 xray: nonspecific gas pattern 4) Diabetes, controlled Assessment/Plan * newly diagnosed in January 2018 * HgA1c is 5.7 (May 2018) * Acuchecks q6h * Hypoglycemia protocol * check lipid/a1c * consult patient's pleating machine operator 5) Hx of prolactinoma; s/p recent surgery Assessment/Plan * F/u head ct, prolactin level * Pt is on cabergoline once weekly, on hold until endocrinology evaluation; patient was scheduled to have her follow-up appointment as outpatient today * Endocrinology, Dr. Schumacher, consulted. Recommendations appreciated * Patient has recent surgery for removal at [facility] 6) Hx of CABG/triple vessel disease Assessment/Plan * ASA 81 mg PO daily, Metoprolol tartrate 12.5 mg PO BID * Avoid LIZANDRO/ARB due to acute renal failure * Avoid lasix due to acute renal failure * Crestor 5 mg PO QHS * Cardio, Dr. Bermudez, consulted. Recommendations appreciated. * troponin x1 is 0.0390; will trend x2 q6h with EKG * monitor on telemetry * monitor daily weight/intake output 7) Recent hx of Pleural effusion * completed lasix 20mg po daily 5 day course on 05/17/18 last dose * completed IR thoracentesis on 05/12/18; was supposed to f/u with Dr. Mcleod in office following hospitalization * Duoneb PRN shortness of breathe * chest xray (05/18/18): small b/l pleural effusion 8) PPX Assessment/Plan * if ct head negative for bleed, then will start DVT ppx * SCDS b/l * GI ppx: protonix 40 mg IVP daily * Fall/aspiration precautions * Neurochecks q4h * Full code * PT/OT eval * Liquid diet
[2018-05-18 15:22] LABS: B-TYPE NATRIURETIC PEPTIDE 1020 pg/mL (0-900)
[2018-05-18] MEDS ORDERED: Magnesium Sulfate 1 gm in D5W 1 GM/100 ML BAG IVPB SCH (16:15)
[2018-05-18] MEDS ORDERED: Glucagon Recombinant 1 mg Inj IM PRN (16:59)
[2018-05-18] MEDS ORDERED: Dextrose 50% SYRINGE Inj (50 ml) IV PRN (16:59)
--- NOTE | 2018-05-18 18:05 | CT ---
Date of service: 05/18/2018 PROCEDURE: CT HEAD WITHOUT CONTRAST. HISTORY: s/p craniotomy COMPARISON: Noncontrast head CT performed 08/27/13 TECHNIQUE: Axial computed tomography images were obtained through the head/brain without intravenous contrast. Radiation dose: Total exam DLP = 1117.89 mGy-cm. This CT exam was performed using one or more of the following dose reduction techniques: Automated exposure control, adjustment of the mA and/or kV according to patient size, and/or use of iterative reconstruction technique. FINDINGS: HEMORRHAGE: No intracranial hemorrhage. BRAIN: Diffuse atrophy with prominence of the ventricles and sulci noted. No mass effect or edema. Intracranial atherosclerosis. Scattered periventricular and subcortical white matter hypodensities, which are nonspecific, but often seen with chronic microvascular ischemic disease. Heterogeneous density noted at the sella which was not seen on prior imaging may reflect postoperative changes. Please note that MRI with diffusion imaging is more sensitive in the detection of acute ischemic event. VENTRICLES: No hydrocephalus. CALVARIUM: Unremarkable. PARANASAL SINUSES: Mucosal thickening involving the ethmoid air cells and sphenoid sinus. MASTOID AIR CELLS: Unremarkable as visualized. No inflammatory changes. OTHER FINDINGS: None. IMPRESSION: Nonspecific white matter changes. Heterogeneous density noted at the sella which was not seen on prior imaging may reflect postoperative changes.
[2018-05-18] MEDS: Magnesium Sulfate 1 gm in D5W 1 GM/100 ML BAG IVPB SCH ×2 (18:59→19:57)
--- NOTE | 2018-05-18 19:03 | US ---
Date of service: 05/18/2018 PROCEDURE: Ultrasound of the Kidneys HISTORY: abd pain, kerry, r/o obstruction COMPARISON: None available. TECHNIQUE: Sonogram of the kidneys. FINDINGS: RIGHT KIDNEY: Measures: 10.8 x 5.1 x 4.7 cm. No obstructing calculus, hydronephrosis, or renal cyst identified. LEFT KIDNEY: Measures: 10.5 x 5.1 x 4.7 cm. No obstructing calculus, hydronephrosis, or renal cyst identified. 5 mm nonobstructing midpole calculus. OTHER FINDINGS: The prevoid urinary bladder measures 5.2 x 3.0 x 4.7 cm, calculated volume 37.6 mL. Patient unable to void precluding evaluation of postvoid residual. Bilateral ureteral jets are not identified. IMPRESSION: No obstructing calculus or hydronephrosis identified. Nonobstructing 5 mm left midpole calculus. The prevoid urinary bladder calculated volume 37.6 mL. Patient unable to void precluding evaluation of postvoid residual. Bilateral ureteral jets are not identified.
[2018-05-18 19:28] LABS: CK-MB < 0.22 ng/mL (0.0-3.38)
[2018-05-18 22:08] LABS: SQUAMOUS EPITHIAL 14 /hpf (0-5); URINE BACTERIA RARE (<OCC); URINE HYALINE CAST >20 /lpf (0-2)
[2018-05-18 22:11] LABS: URINE BILIRUBIN MODERATE (NEGATIVE); URINE BLOOD NEGATIVE (NEGATIVE); URINE CLARITY SL HAZY (Clear); URINE COLOR YELLOW (YELLOW); URINE GLUCOSE (UA) NEGATIVE (Normal); URINE LEUKOCYTE ESTERASE NEGATIVE Leu/uL (Negative); URINE PROTEIN TRACE mg/dL (NEGATIVE); URINE UROBILINOGEN 0.2 mg/dL (0.2-1.0)
[2018-05-18] MEDS ORDERED: Albuterol-Ipratrop 3 mg / 0.5 (3 ml) UD INH PRN (22:22)
[2018-05-18 22:24] LABS: CALCIUM 8.4 mg/dl (8.6-10.4)
[2018-05-19 01:31] LABS: CK-MB < 0.22 ng/mL (0.0-3.38)
[2018-05-19] MEDS: Levothyroxine 50 MCG TAB PO SCH (05:49)
--- NOTE | 2018-05-19 07:09 | CON ---
DATE: 05/18/2018 HISTORY OF PRESENT ILLNESS: This 62-year-old black female has been admitted to [facility] for the second time this month due to nausea, vomiting, weakness, hypotension and some weight loss. A similar presentation was the reason for admission earlier this month on 05/12/2018 for a few days as well. The patient is known to me for history of pituitary adenoma as of 2013, status post recent transsphenoidal pituitary tumor resection. The tumor was a size of 2 x 1.5 cm. The patient was stable previously on cabergoline therapy since 2013 and was followed also by her neurologist, , but due to recent presentation with visual changes which occurred right after coronary bypass surgery in 02/2018, the patient was forced to undergo pituitary surgery at that time which happened in beginning of 03/2018, two months ago. Both the procedures, coronary bypass surgery and pituitary surgery were performed in [facility]. The patient also has a history of other endocrine abnormalities such as hypothyroidism, which could be partially related to previous use of amiodarone which the patient was previously on. She also has a history of mild hyperparathyroidism with borderline hyperglycemia only and history of diabetes mellitus for which she has not taken any medications previously, just managed by diet. When the patient was seen last by me in 01/2018 after a two-year hiatus, the patient was stable in terms of her prolactin level on cabergoline. Her thyroid levels were stable on levothyroxine 75 mcg once a day. At that time, they were no visual changes accompanying, yet the patient complained of some chest pain. She also had undergone some stress due to her 's earlier in 2017. While clinically in 01/2018 on a routine visit, the patient complained of chest pain. She was referred for cardiac evaluation, had undergone proper workup with catheterization and that led to coronary artery bypass surgery in 02/2018. Again, as mentioned before right after the surgery, the patient had developed double vision which was related to pituitary adenoma that manifested itself at that time. Again, the patient has undergone in 03/2018 resection of that adenoma in [facility]. Prior to those two surgeries, the patient was on amlodipine, hydralazine, losartan, metoprolol, also hydrocortisone 20 mg in the morning and 10 mg in the afternoon, also Protonix, iron supplements, levothyroxine 75, aspirin and atorvastatin. After the surgery, the patient was placed on a tapering dose of steroid. According to the description, it was most likely Decadron even though the patient does not recollect the name, but she described a tapering load of treatment for about 10 to 14 days after surgery after which it was discontinued by the neurosurgeon in [place]. At this moment, the patient has no hydrocortisone or prednisone on her home list of medication. THERE WERE NO KNOWN ALLERGIES AT THE PRESENT MOMENT. The patient presents with low blood pressure, elevated creatinine level up to 2.1 and apparently while in 05/2018 has also undergone bilateral thoracocenteses and was also given Lasix. She was using that at home on a daily basis ?, but again presented with dehydration due to probably both Lasix effect as well as nausea, vomiting, and poor liquid intake. Upon presentation, blood pressure of the patient was anywhere from 90/62, 110/70 without any blood pressure medications being used. At the moment, the patient is seen in comfortable position. She just underwent CAT scan of the abdomen today and an ultrasound. Her nausea has been controlled with Zofran. MEDICATIONS: None of the blood pressure medicines have been used. At the moment, she is on lowered levothyroxine dosage 50 mcg once a day, on rosuvastatin 5 mg once a day, on Protonix 40 mg once a day, and no steroid products intravenously or orally are being used right now. PHYSICAL EXAMINATION: GENERAL: She is comfortable now in bed. At the moment, just on liquid diet. No abdominal pain right now. She feels tired and somewhat weak, but appears to be in no severe distress. VITAL SIGNS: Her blood pressure is 115/70, heart rate is about 76; regular. She is afebrile. HEAD AND NECK: Unremarkable. She is mentioning her vision somewhat improved after pituitary surgery with minimal defect left at the moment and no double vision present right now. CARDIOPULMONARY: S1, S2 at 76 per minute. Regular. CHEST: Clear. Diminished breath sounds bilaterally. No crepitation. No peripheral edema is present. ABDOMEN: Soft, slightly tender, but no acute signs are found. SIGNIFICANT LABORATORIES: Show creatinine level to be 2.1, potassium upon admission was low at 3.4, magnesium also was low 1.2; both were replaced. The patient was placed on intravenous hydration. IMPRESSION: The overall impression from endocrine standpoint, status post recent hypophysectomy, pituitary prolactinoma resection three months ago. PLAN: The patient's surgery was necessitated by rapidly changing vision. Presenting for second time this month with nausea, vomiting, weight loss, poor appetite. The patient has not been on hydrocortisone since 03/2018 or maybe early 04/2018, the question here would be to rule out partial hypopituitarism due to the surgery and hydroxysteroid deficiency. The patient for this reason would be placed on hydrocortisone 25 mg intravenously every 12 hours after fasting serum cortisol will be obtained in the morning. Most recently, her prolactin level was performed in the office on 05/05/2018 and it was less than 2. The patient does not require any cabergoline for that any further. Also, most recently on 05/05/2018, in the office, her TSH and T4 reviewed expressed of levothyroxine, T4 level was elevated. Free T4 was elevated up to 3.9, the upper limit of normal is 3.7, and TSH was suppressed at 0.27. For this reason, levothyroxine at this moment is reduced to 50 mcg once a day. Other endocrine problems such as mild hyperparathyroidism as well as recently deducted diabetes mellitus which is also mild has been so far stable. The patient is receiving intravenous hydration, which should be continued and renal parameters followed. The patient is being seen by a adjunct instructor of women's studies and a neurologist as well. Besides intravenous hydrocortisone, the patient's serum calcium will be monitored. The patient's glucose level has been normal. Hemoglobin A1c will be also obtained and thyroid-stimulating hormone and free T4 level monitored as well to further evaluate pituitary function postsurgically. Growth hormone deficiency also would have to be excluded due to the patient's presentation and for that, IgF-1 level will be obtained. It is going to be sent off in the morning. Thank you for allowing me to participate in this patient's care. She will require very thorough future monitoring by serial blood work and establishment if steroid treatment will be necessary for the future, temporary or permanently. She will need to be monitored for diabetes, her parathyroidism, and of course assessed for pituitary function in general. I will be monitoring this patient's progress with you while in the hospital. The patient was seen on 05/18/2018 at 9:45 p.m. Viji Altamirano MD [facility] # [id number]
--- NOTE | 2018-05-19 07:09 | CP.PCM.PN ---
Subjective - Date & Time of Evaluation Date of Evaluation: 05/19/18 Time of Evaluation: 07:09 - Subjective Subjective: Progress Note for Hospitalist service Patient seen and examined at bedside. She states she continues to feel tired, but states she has not had any vomiting today. She states she felt a little dizzy when she got up from the chair to the bed earlier this morning. She denies headache, fevers, chills, chest pain, shortness of breath, palpitations, cough, nausea, vomiting, leg swelling. Objective - Vital Signs/Intake and Output Vital Signs (last 24 hours): Temp Pulse Resp BP Pulse Ox 98 F 86 18 103/86 97 05/18/18 23:13 05/18/18 23:13 05/18/18 23:13 05/18/18 23:13 05/18/18 23:13 Intake and Output: 05/19/18 05/19/18 06:59 18:59 Intake Total 900 Balance 900 - Medications Medications: Current Medications Albuterol/Ipratropium (Duoneb 3 Mg/0.5 Mg (3 Ml) Ud) 3 ml INH RQ6 PRN PRN Reason: Shortness of Breath Aspirin (Ecotrin) 81 mg PO DAILY [facility]A Dextrose (Dextrose 50% Inj) 0 ml IV STAT PRN; Protocol PRN Reason: Hypoglycemia Protocol Dextrose (Glutose 15) 0 gm PO ONCE PRN; Protocol PRN Reason: Hypoglycemia Protocol Glucagon (Glucagen Diagnostic Kit) 0 mg IM STAT PRN; Protocol PRN Reason: Hypoglycemia Protocol Heparin Sodium (Porcine) (Heparin) 5,000 units SC Q8 [facility] Hydrocortisone Sodium Succinate (Solu-Cortef) 25 mg IV Q12 [facility] Dextrose (Dextrose 5% In Water 1000 Ml) 1,000 mls @ 0 mls/hr IV .Q0M PRN; Protocol PRN Reason: Hypoglycemia Protocol Levothyroxine Sodium (Synthroid) 50 mcg PO DAILY@0630 [facility] Last Admin: 05/19/18 05:49 Dose: 50 mcg Metoprolol Tartrate (Lopressor) 12.5 mg PO BID [facility]A Ondansetron HCl (Zofran Inj) 4 mg IVP Q6H PRN PRN Reason: Nausea/Vomiting Last Admin: 05/18/18 18:59 Dose: 4 mg Rosuvastatin Calcium (Crestor) 5 mg PO HS YASHIRA Last Admin: 05/18/18 21:26 Dose: 5 mg - Labs Labs: 05/18/18 11:53 05/18/18 22:04 PT 14.6 SECONDS (9.7-12.2) H 05/18/18 11:53 INR 1.3 05/18/18 11:53 APTT 39 SECONDS (21-34) H 05/18/18 11:53 - Constitutional Appears: Non-toxic, No Acute Distress - Head Exam Head Exam: ATRAUMATIC, NORMOCEPHALIC - Eye Exam Eye Exam: EOMI - ENT Exam ENT Exam: Mucous Membranes Dry - Respiratory Exam Respiratory Exam: Clear to Ausculation Bilateral, NORMAL BREATHING PATTERN - Cardiovascular Exam Cardiovascular Exam: REGULAR RHYTHM, +S1, +S2 Additional comments: midline scar on chest from CABG - GI/Abdominal Exam GI & Abdominal Exam: Soft, Normal Bowel Sounds. absent: Distended, Firm, Guarding, Rigid, Tenderness Additional comments: Obese abdomen. - Extremities Exam Extremities Exam: absent: Calf Tenderness, Pedal Edema Additional comments: scar on right lower extremity from cardiac cath - Neurological Exam Neurological Exam: Alert, Awake - Skin Skin Exam: Dry, Intact, Warm Assessment and Plan - Assessment and Plan (Free Text) Assessment: 62 year old female with PMHx of HTN, hypercholesterolemia, [place], CABG (triple vessel disease), prolactinoma s/p craniotomy who presents with a 2 day history of vomiting, and abdominal pain. Found to be hypokalemic and hypomagnesemic, with acute kidney injury Cr 2.3, after oral lasix treatment. Electrolyte levels currently improving, Cr improved to 1.7. Plan: Acute kidney injury, likely from Furosemide induced diuresis BUN/CR initial 12/2.[address] Bryan consulted, help appreciated. NS @ 80cc/hr IV Renal US: No obstructing calculus or hydronephrosis identified. Nonobstructing 5 mm left midpole calculus. The prevoid urinary bladder calculated volume 37.6 mL. Patient unable to void precluding evaluation of postvoid residual. Bilateral ureteral jets are not identified. On Telemetry Cortisol AM sample 5.4 Hypokalemia, improved Hypomagnesemia, improved K 3.7 Mag 2.0 improved from initial Nausea/vomiting GI Dr. Schaefer consulted, help appreciated Abdomen XR One small bowel loop (the more cephalad of the left lower abdominal bowel loops projecting over the left iliac crest) appears borderline distended on series 3538 image 3-. A partial small-bowel obstruction is 1 consideration. Top normal variant is another.Clinical follow-up and correlation recommended. The regional inferior gas-filled loop of bowel here is indeterminate in its origin - being small or large bowel Abdomen/pelvic CT with PO contrast No significant or acute findings to account for/ related to the clinical presentation. Additional benign and/or incidental findings described above. History of diabetes A1c from February 2018 5.7 Hypoglycemia protocol History of prolactinoma status post craniotomy Internal Audit Senior Manager Dr. Altamirano consulted, help appreciated Neurologist Dr. Brown consulted, help appreciated TSH low <0.02 T4 high 13.[address]: Nonspecific white matter changes. Heterogeneous density noted at the sella which was not seen on prior imaging may reflect postoperative changes. Prolactin <1.4 Zofran 4mg Q6 PRN Patient is on Cabergoline once weekly, currently held until seen by Endocrinology Endocrinology, Dr. Schumacher, consulted, help appreciated History of CABG with triple vessel disease ASA 81mg PO Lopressor 12.5mg PO BID No LIZANDRO/ARB given VINNY Crestor 5mg PO HS EKG changes noted with Q waves Cardio Dr. 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 Mcleod consulted, help appreciated Patient was status post thoracentesis on 05/12/18, patient never followed up with Dr. Mcleod on discharge Recently finished course of Lasix 20mg PO Prophylaxis Heparin 5000unit SC Q8 Case discussed with Dr. Scott Orosco, PGY1
--- NOTE | 2018-05-19 07:40 | CP.PCM.CON ---
History of Present Illness - History of Present Illness History of Present Illness: CONSULTATION DICTATED INTRACTABLE VOMITING ??? CENTRAL CAUSE CHECK PROLACTIN RIGHT HOMONYMUS HEMIANOPSIA - NEW Vs OLD NO NEURO WORK UP IS NEENDED NOW WILL FOLLOW Past Patient History - Infectious Disease Hx of Infectious Diseases: None - Past Medical History & Family History Past Medical History?: Yes - Past Social History Smoking Status: Never Smoked - CARDIAC Hx Cardiac Disorders: Yes Hx Congestive Heart Failure: Yes Hx Hypercholesterolemia: Yes Hx Hypertension: Yes Other/Comment: s/p CABG 02/2018 - PULMONARY Hx Respiratory Disorders: No Other/Comment: Bilateral pleural effusion s/p thoracentesis last week - NEUROLOGICAL Hx Neurological Disorder: No Hx Dizziness: Yes - HEENT Hx HEENT Problems: No - RENAL Hx Chronic Kidney Disease: No - ENDOCRINE/METABOLIC Hx Endocrine Disorders: Yes Hx Diabetes Mellitus Type 2: Yes - HEMATOLOGICAL/ONCOLOGICAL Hx Blood Transfusion Reaction: (pt refuses blood transfusion) Other/Comment: pituitary tumor removed - INTEGUMENTARY Hx Dermatological Problems: No - MUSCULOSKELETAL/RHEUMATOLOGICAL Hx Falls: No Other/Comment: pt c/o weakness - GASTROINTESTINAL Hx Gastrointestinal Disorders: Yes Hx Vomiting: Yes - GENITOURINARY/GYNECOLOGICAL Hx Genitourinary Disorders: No - PSYCHIATRIC Hx Psychophysiologic Disorder: No Hx Substance Use: No - SURGICAL HISTORY Hx Surgeries: Yes Hx Coronary Artery Bypass Graft: Yes (02/2018) Hx Coronary Stent: Yes - ANESTHESIA Hx Anesthesia: Yes Hx Anesthesia Reactions: No Meds Allergies/Adverse Reactions: Allergies Allergy/AdvReac Type Severity Reaction Status Date / Time No Known Allergies Allergy Verified 05/18/18 10:17 - Medications Medications: Current Medications Albuterol/Ipratropium (Duoneb 3 Mg/0.5 Mg (3 Ml) Ud) 3 ml INH RQ6 PRN PRN Reason: Shortness of Breath Aspirin (Ecotrin) 81 mg PO DAILY Y[facility] Dextrose (Dextrose 50% Inj) 0 ml IV STAT PRN; Protocol PRN Reason: Hypoglycemia Protocol Dextrose (Glutose 15) 0 gm PO ONCE PRN; Protocol PRN Reason: Hypoglycemia Protocol Glucagon (Glucagen Diagnostic Kit) 0 mg IM STAT PRN; Protocol PRN Reason: Hypoglycemia Protocol Heparin Sodium (Porcine) (Heparin) 5,000 units SC Q8 [facility] Hydrocortisone Sodium Succinate (Solu-Cortef) 25 mg IV Q12 [facility] Dextrose (Dextrose 5% In Water 1000 Ml) 1,000 mls @ 0 mls/hr IV .Q0M PRN; Protocol PRN Reason: Hypoglycemia Protocol Levothyroxine Sodium (Synthroid) 50 mcg PO DAILY@0630 [facility] Last Admin: 05/19/18 05:49 Dose: 50 mcg Metoprolol Tartrate (Lopressor) 12.5 mg PO BID [facility] Ondansetron HCl (Zofran Inj) 4 mg IVP Q6H PRN PRN Reason: Nausea/Vomiting Last Admin: 05/18/18 18:59 Dose: 4 mg Rosuvastatin Calcium (Crestor) 5 mg PO HS [facility] Last Admin: 05/18/18 21:26 Dose: 5 mg Results - Vital Signs Recent Vital Signs: Last Vital Signs Temp 98 F 05/18/18 23:13 Pulse 86 05/18/18 23:13 Resp 18 05/18/18 23:13 BP 103/86 05/18/18 23:13 Pulse Ox 97 05/18/18 23:13 - Labs Result Diagrams: 05/18/18 11:53 05/18/18 22:04 Labs: Laboratory Results - last 24 hr 05/18/18 05/18/18 05/18/18 10:19 11:53 11:53 WBC 8.1 D RBC 4.63 Hgb 13.5 D Hct 39.9 MCV 86.1 MCH 29.1 MCHC 33.8 RDW 18.2 H Plt Count 294 MPV 9.7 Neut % (Auto) 55.2 Lymph % (Auto) 32.3 [place] % (Auto) 9.4 Eos % (Auto) 2.2 Baso % (Auto) 0.9 Neut # (Auto) 4.5 Lymph # (Auto) 2.6 [place] # (Auto) 0.8 Eos # (Auto) 0.2 Baso # (Auto) 0.1 PT 14.6 H INR 1.3 APTT 39 H Sodium Potassium Chloride Carbon Dioxide Anion Gap BUN Creatinine Est GFR ( Amer) Est GFR (Non-Af Amer) POC Glucose (mg/dL) 104 Random Glucose Calcium Phosphorus Magnesium Total Bilirubin AST ALT Alkaline Phosphatase Total Creatine Kinase CK-MB (Mass) Troponin I NT-Pro-B Natriuret Pep Total Protein Albumin Globulin Albumin/Globulin Ratio Lipase Urine Color Urine Clarity Urine pH Ur Specific [place] Urine Protein Urine Glucose (UA) Urine Ketones Urine Blood Urine Nitrate Urine Bilirubin Urine Urobilinogen Ur Leukocyte Esterase Urine WBC (Auto) Urine RBC (Auto) Ur Squamous Epith Cells Urine Bacteria Hyaline Casts 05/18/18 05/18/18 05/18/18 11:53 15:06 17:28 WBC RBC Hgb Hct MCV MCH MCHC RDW Plt Count MPV Neut % (Auto) Lymph % (Auto) [place] % (Auto) Eos % (Auto) Baso % (Auto) Neut # (Auto) Lymph # (Auto) [place] # (Auto) Eos # (Auto) Baso # (Auto) PT INR APTT Sodium 133 Potassium 2.8 L Chloride 90 L Carbon Dioxide 29 Anion Gap 17 BUN 12 Creatinine 2.3 H Est GFR ( Amer) 26 Est GFR (Non-Af Amer) 21 POC Glucose (mg/dL) 92 Random Glucose 99 D Calcium 8.8 Phosphorus 3.1 Magnesium 1.3 L Total Bilirubin 0.6 AST 31 ALT 7 L D Alkaline Phosphatase 89 Total Creatine Kinase 54 CK-MB (Mass) < 0.22 Troponin I 0.0390 NT-Pro-B Natriuret Pep 1020 H Total Protein 7.7 Albumin 4.4 Globulin 3.2 Albumin/Globulin Ratio 1.4 Lipase 80 Urine Color Urine Clarity Urine pH Ur Specific [place] Urine Protein Urine Glucose (UA) Urine Ketones Urine Blood Urine Nitrate Urine Bilirubin Urine Urobilinogen Ur Leukocyte Esterase Urine WBC (Auto) Urine RBC (Auto) Ur Squamous Epith Cells Urine Bacteria Hyaline Casts 05/18/18 05/18/18 05/18/18 18:44 21:10 21:40 WBC RBC Hgb Hct MCV MCH MCHC RDW Plt Count MPV Neut % (Auto) Lymph % (Auto) [place] % (Auto) Eos % (Auto) Baso % (Auto) Neut # (Auto) Lymph # (Auto) [place] # (Auto) Eos # (Auto) Baso # (Auto) PT INR APTT Sodium Potassium Chloride Carbon Dioxide Anion Gap BUN Creatinine Est GFR ( Amer) Est GFR (Non-Af Amer) POC Glucose (mg/dL) 105 Random Glucose Calcium Phosphorus Magnesium Total Bilirubin AST ALT Alkaline Phosphatase Total Creatine Kinase 52 CK-MB (Mass) < 0.22 Troponin I 0.0250 NT-Pro-B Natriuret Pep Total Protein Albumin Globulin Albumin/Globulin Ratio Lipase Urine Color Yellow Urine Clarity Sl hazy Urine pH 6.0 Ur Specific [place] 1.025 Urine Protein Trace Urine Glucose (UA) Negative Urine Ketones 15 Urine Blood Negative Urine Nitrate Negative Urine Bilirubin Moderate Urine Urobilinogen 0.2 Ur Leukocyte Esterase Negative Urine WBC (Auto) 27 H Urine RBC (Auto) 6 H Ur Squamous Epith Cells 14 H Urine Bacteria Rare Hyaline Casts >20 H 05/18/18 05/19/18 05/19/18 22:04 00:24 06:41 WBC RBC Hgb Hct MCV MCH MCHC RDW Plt Count MPV Neut % (Auto) Lymph % (Auto) [place] % (Auto) Eos % (Auto) Baso % (Auto) Neut # (Auto) Lymph # (Auto) [place] # (Auto) Eos # (Auto) Baso # (Auto) PT INR APTT Sodium 133 Potassium 4.1 Chloride 93 L Carbon Dioxide 31 H Anion Gap 13 BUN 12 Creatinine 2.1 H Est GFR ( Amer) 29 Est GFR (Non-Af Amer) 24 POC Glucose (mg/dL) 86 Random Glucose 94 Calcium 8.4 L Phosphorus Magnesium 2.2 Total Bilirubin AST ALT Alkaline Phosphatase Total Creatine Kinase 48 CK-MB (Mass) < 0.22 Troponin I 0.0250 NT-Pro-B Natriuret Pep Total Protein Albumin Globulin Albumin/Globulin Ratio Lipase Urine Color Urine Clarity Urine pH Ur Specific [place] Urine Protein Urine Glucose (UA) Urine Ketones Urine Blood Urine Nitrate Urine Bilirubin Urine Urobilinogen Ur Leukocyte Esterase Urine WBC (Auto) Urine RBC (Auto) Ur Squamous Epith Cells Urine Bacteria Hyaline Casts
[2018-05-19 07:49] LABS: EOS # 0.3 K/uL (0.0-0.7); EOS % 5.7 % (0.0-4.0); HEMOGLOBIN 11.9 g/dL (11.0-16.0); LYMPH # 1.9 K/uL (1.0-4.3); LYMPH % 37.8 % (20.0-40.0); MEAN CELL VOLUME 85.8 fL (81.0-99.0); MEAN CORPUSCULAR HEMOGLOBIN 28.5 pg (27.0-31.0); MEAN CORPUSCULAR HGB CONC 33.2 g/dL (33.0-37.0); MEAN PLATELET VOLUME 9.7 fL (7.2-11.7); MONO # 0.7 K/uL (0.0-0.8); MONO % 13.5 % (0.0-10.0); NEUT # 2.1 K/uL (1.8-7.0); NRBC % 0.1 % (0.0-2.0); RBC 4.17 Mil/uL (3.80-5.20); RED CELL DISTRIBUTION WIDTH 17.6 % (11.5-14.5); WHITE BLOOD COUNT 5.1 K/uL (4.8-10.8)
[2018-05-19 08:11] LABS: ALB/GLOB RATIO 1.4 (1.0-2.1); ALBUMIN 3.7 g/dL (3.5-5.0); ALT/SGPT 16 U/L (9-52); AST/SGOT 29 U/L (14-36); BLOOD UREA NITROGEN 10 mg/dL (7-17); CALCIUM 8.3 mg/dl (8.6-10.4); GFR NON-AFRICAN AMERICAN 30; LIPASE 35 U/L (23-300)
[2018-05-19] MEDS ORDERED: Enoxaparin 30 mg Syringe SC SCH (10:00)
--- NOTE | 2018-05-19 11:31 | CP.PCM.CON ---
History of Present Illness - History of Present Illness History of Present Illness: consult dictated VINNY dehydration from vomiting hyponatrmia keep IV fluid NS 80 cc /hour Past Patient History - Infectious Disease Hx of Infectious Diseases: None - Past Medical History & Family History Past Medical History?: Yes - Past Social History Smoking Status: Never Smoked - CARDIAC Hx Cardiac Disorders: Yes Hx Congestive Heart Failure: Yes Hx Hypercholesterolemia: Yes Hx Hypertension: Yes Other/Comment: s/p CABG 02/2018 - PULMONARY Hx Respiratory Disorders: No Other/Comment: Bilateral pleural effusion s/p thoracentesis last week - NEUROLOGICAL Hx Neurological Disorder: No Hx Dizziness: Yes - HEENT Hx HEENT Problems: No - RENAL Hx Chronic Kidney Disease: No - ENDOCRINE/METABOLIC Hx Endocrine Disorders: Yes Hx Diabetes Mellitus Type 2: Yes - HEMATOLOGICAL/ONCOLOGICAL Hx Blood Transfusion Reaction: (pt refuses blood transfusion) Other/Comment: pituitary tumor removed - INTEGUMENTARY Hx Dermatological Problems: No - MUSCULOSKELETAL/RHEUMATOLOGICAL Hx Falls: No Other/Comment: pt c/o weakness - GASTROINTESTINAL Hx Gastrointestinal Disorders: Yes Hx Vomiting: Yes - GENITOURINARY/GYNECOLOGICAL Hx Genitourinary Disorders: No - PSYCHIATRIC Hx Psychophysiologic Disorder: No Hx Substance Use: No - SURGICAL HISTORY Hx Surgeries: Yes Hx Coronary Artery Bypass Graft: Yes (02/2018) Hx Coronary Stent: Yes - ANESTHESIA Hx Anesthesia: Yes Hx Anesthesia Reactions: No Meds Allergies/Adverse Reactions: Allergies Allergy/AdvReac Type Severity Reaction Status Date / Time No Known Allergies Allergy Verified 05/18/18 10:17 - Medications Medications: Current Medications Albuterol/Ipratropium (Duoneb 3 Mg/0.5 Mg (3 Ml) Ud) 3 ml INH RQ6 PRN PRN Reason: Shortness of Breath Aspirin (Ecotrin) 81 mg PO DAILY [facility] Last Admin: 05/19/18 10:15 Dose: 81 mg Dextrose (Dextrose 50% Inj) 0 ml IV STAT PRN; Protocol PRN Reason: Hypoglycemia Protocol Dextrose (Glutose 15) 0 gm PO ONCE PRN; Protocol PRN Reason: Hypoglycemia Protocol Glucagon (Glucagen Diagnostic Kit) 0 mg IM STAT PRN; Protocol PRN Reason: Hypoglycemia Protocol Heparin Sodium (Porcine) (Heparin) 5,000 units SC Q8 [facility] Hydrocortisone Sodium Succinate (Solu-Cortef) 25 mg IV Q12 [facility] Last Admin: 05/19/18 10:16 Dose: 25 mg Dextrose (Dextrose 5% In Water 1000 Ml) 1,000 mls @ 0 mls/hr IV .Q0M PRN; Protocol PRN Reason: Hypoglycemia Protocol Levothyroxine Sodium (Synthroid) 50 mcg PO DAILY@0630 [facility] Last Admin: 05/19/18 05:49 Dose: 50 mcg Metoprolol Tartrate (Lopressor) 12.5 mg PO BID [facility] Last Admin: 05/19/18 10:26 Dose: 12.5 mg Ondansetron HCl (Zofran Inj) 4 mg IVP Q6H PRN PRN Reason: Nausea/Vomiting Last Admin: 05/18/18 18:59 Dose: 4 mg Rosuvastatin Calcium (Crestor) 5 mg PO HS [facility] Last Admin: 05/18/18 21:26 Dose: 5 mg Results - Vital Signs Recent Vital Signs: Last Vital Signs Temp 97.9 F 05/19/18 07:00 Pulse 86 05/19/18 10:29 Resp 20 05/19/18 07:00 BP 107/71 05/19/18 10:29 Pulse Ox 96 05/19/18 07:00 - Labs Result Diagrams: 05/19/18 07:41 05/19/18 07:41 Labs: Laboratory Results - last 24 hr 05/18/18 05/18/18 05/18/18 11:53 11:53 11:53 WBC 8.1 D RBC 4.63 Hgb 13.5 D Hct 39.9 MCV 86.1 MCH 29.1 MCHC 33.8 RDW 18.2 H Plt Count 294 MPV 9.7 Neut % (Auto) 55.2 Lymph % (Auto) 32.3 [place] % (Auto) 9.4 Eos % (Auto) 2.2 Baso % (Auto) 0.9 Neut # (Auto) 4.5 Lymph # (Auto) 2.6 [place] # (Auto) 0.8 Eos # (Auto) 0.2 Baso # (Auto) 0.1 PT 14.6 H INR 1.3 APTT 39 H Sodium 133 Potassium 2.8 L Chloride 90 L Carbon Dioxide 29 Anion Gap 17 BUN 12 Creatinine 2.3 H Est GFR ( Amer) 26 Est GFR (Non-Af Amer) 21 POC Glucose (mg/dL) Random Glucose 99 D Calcium 8.8 Phosphorus Magnesium Total Bilirubin 0.6 AST 31 ALT 7 L D Alkaline Phosphatase 89 Total Creatine Kinase 54 CK-MB (Mass) < 0.22 Troponin I 0.0390 NT-Pro-B Natriuret Pep 1020 H Total Protein 7.7 Albumin 4.4 Globulin 3.2 Albumin/Globulin Ratio 1.4 Lipase 80 Free T4 Thyroxine (T4) TSH 3rd Generation Cortisol AM Sample Urine Color Urine Clarity Urine pH Ur Specific [place] Urine Protein Urine Glucose (UA) Urine Ketones Urine Blood Urine Nitrate Urine Bilirubin Urine Urobilinogen Ur Leukocyte Esterase Urine WBC (Auto) Urine RBC (Auto) Ur Squamous Epith Cells Urine Bacteria Hyaline Casts 05/18/18 05/18/18 05/18/18 15:06 17:28 18:44 WBC RBC Hgb Hct MCV MCH MCHC RDW Plt Count MPV Neut % (Auto) Lymph % (Auto) [place] % (Auto) Eos % (Auto) Baso % (Auto) Neut # (Auto) Lymph # (Auto) [place] # (Auto) Eos # (Auto) Baso # (Auto) PT INR APTT Sodium Potassium Chloride Carbon Dioxide Anion Gap BUN Creatinine Est GFR ( Amer) Est GFR (Non-Af Amer) POC Glucose (mg/dL) 92 Random Glucose Calcium Phosphorus 3.1 Magnesium 1.3 L Total Bilirubin AST ALT Alkaline Phosphatase Total Creatine Kinase 52 CK-MB (Mass) < 0.22 Troponin I 0.0250 NT-Pro-B Natriuret Pep Total Protein Albumin Globulin Albumin/Globulin Ratio Lipase Free T4 Thyroxine (T4) TSH 3rd Generation Cortisol AM Sample Urine Color Urine Clarity Urine pH Ur Specific [place] Urine Protein Urine Glucose (UA) Urine Ketones Urine Blood Urine Nitrate Urine Bilirubin Urine Urobilinogen Ur Leukocyte Esterase Urine WBC (Auto) Urine RBC (Auto) Ur Squamous Epith Cells Urine Bacteria Hyaline Casts 05/18/18 05/18/18 05/18/18 21:10 21:40 22:04 WBC RBC Hgb Hct MCV MCH MCHC RDW Plt Count MPV Neut % (Auto) Lymph % (Auto) [place] % (Auto) Eos % (Auto) Baso % (Auto) Neut # (Auto) Lymph # (Auto) [place] # (Auto) Eos # (Auto) Baso # (Auto) PT INR APTT Sodium 133 Potassium 4.1 Chloride 93 L Carbon Dioxide 31 H Anion Gap 13 BUN 12 Creatinine 2.1 H Est GFR ( Amer) 29 Est GFR (Non-Af Amer) 24 POC Glucose (mg/dL) 105 Random Glucose 94 Calcium 8.4 L Phosphorus Magnesium 2.2 Total Bilirubin AST ALT Alkaline Phosphatase Total Creatine Kinase CK-MB (Mass) Troponin I NT-Pro-B Natriuret Pep Total Protein Albumin Globulin Albumin/Globulin Ratio Lipase Free T4 Thyroxine (T4) TSH 3rd Generation Cortisol AM Sample Urine Color Yellow Urine Clarity Sl hazy Urine pH 6.0 Ur Specific [place] 1.025 Urine Protein Trace Urine Glucose (UA) Negative Urine Ketones 15 Urine Blood Negative Urine Nitrate Negative Urine Bilirubin Moderate Urine Urobilinogen 0.2 Ur Leukocyte Esterase Negative Urine WBC (Auto) 27 H Urine RBC (Auto) 6 H Ur Squamous Epith Cells 14 H Urine Bacteria Rare Hyaline Casts >20 H 05/19/18 05/19/18 05/19/18 00:24 06:41 07:41 WBC 5.1 RBC 4.17 Hgb 11.9 Hct 35.7 MCV 85.8 MCH 28.5 MCHC 33.2 RDW 17.6 H Plt Count 268 MPV 9.7 Neut % (Auto) 42.0 L Lymph % (Auto) 37.8 [place] % (Auto) 13.5 H Eos % (Auto) 5.7 H Baso % (Auto) 1.0 Neut # (Auto) 2.1 Lymph # (Auto) 1.9 [place] # (Auto) 0.7 Eos # (Auto) 0.3 Baso # (Auto) 0.0 PT INR APTT Sodium Potassium Chloride Carbon Dioxide Anion Gap BUN Creatinine Est GFR ( Amer) Est GFR (Non-Af Amer) POC Glucose (mg/dL) 86 Random Glucose Calcium Phosphorus Magnesium Total Bilirubin AST ALT Alkaline Phosphatase Total Creatine Kinase 48 CK-MB (Mass) < 0.22 Troponin I 0.0250 NT-Pro-B Natriuret Pep Total Protein Albumin Globulin Albumin/Globulin Ratio Lipase Free T4 Thyroxine (T4) TSH 3rd Generation Cortisol AM Sample Urine Color Urine Clarity Urine pH Ur Specific [place] Urine Protein Urine Glucose (UA) Urine Ketones Urine Blood Urine Nitrate Urine Bilirubin Urine Urobilinogen Ur Leukocyte Esterase Urine WBC (Auto) Urine RBC (Auto) Ur Squamous Epith Cells Urine Bacteria Hyaline Casts 05/19/18 05/19/18 05/19/18 07:41 07:41 07:41 WBC RBC Hgb Hct MCV MCH MCHC RDW Plt Count MPV Neut % (Auto) Lymph % (Auto) [place] % (Auto) Eos % (Auto) Baso % (Auto) Neut # (Auto) Lymph # (Auto) [place] # (Auto) Eos # (Auto) Baso # (Auto) PT INR APTT Sodium 132 Potassium 3.7 Chloride 96 L Carbon Dioxide 31 H Anion Gap 9 L BUN 10 Creatinine 1.7 H Est GFR ( Amer) 37 Est GFR (Non-Af Amer) 30 POC Glucose (mg/dL) Random Glucose 85 Calcium 8.3 L Phosphorus 2.5 Magnesium 2.0 Total Bilirubin 0.4 AST 29 ALT 16 Alkaline Phosphatase 83 Total Creatine Kinase CK-MB (Mass) Troponin I NT-Pro-B Natriuret Pep Total Protein 6.3 Albumin 3.7 Globulin 2.7 Albumin/Globulin Ratio 1.4 Lipase 35 Free T4 1.70 Thyroxine (T4) 13.4 H TSH 3rd Generation < 0.02 L Cortisol AM Sample 5.4 Urine Color Urine Clarity Urine pH Ur Specific [place] Urine Protein Urine Glucose (UA) Urine Ketones Urine Blood Urine Nitrate Urine Bilirubin Urine Urobilinogen Ur Leukocyte Esterase Urine WBC (Auto) Urine RBC (Auto) Ur Squamous Epith Cells Urine Bacteria Hyaline Casts 05/19/18 10:57 WBC RBC Hgb Hct MCV MCH MCHC RDW Plt Count MPV Neut % (Auto) Lymph % (Auto) [place] % (Auto) Eos % (Auto) Baso % (Auto) Neut # (Auto) Lymph # (Auto) [place] # (Auto) Eos # (Auto) Baso # (Auto) PT INR APTT Sodium Potassium Chloride Carbon Dioxide Anion Gap BUN Creatinine Est GFR ( Amer) Est GFR (Non-Af Amer) POC Glucose (mg/dL) 153 H Random Glucose Calcium Phosphorus Magnesium Total Bilirubin AST ALT Alkaline Phosphatase Total Creatine Kinase CK-MB (Mass) Troponin I NT-Pro-B Natriuret Pep Total Protein Albumin Globulin Albumin/Globulin Ratio Lipase Free T4 Thyroxine (T4) TSH 3rd Generation Cortisol AM Sample Urine Color Urine Clarity Urine pH Ur Specific [place] Urine Protein Urine Glucose (UA) Urine Ketones Urine Blood Urine Nitrate Urine Bilirubin Urine Urobilinogen Ur Leukocyte Esterase Urine WBC (Auto) Urine RBC (Auto) Ur Squamous Epith Cells Urine Bacteria Hyaline Casts
--- NOTE | 2018-05-19 11:44 | CP.PCM.PCO ---
Physician Communication Note - Physician Communication Note Physician Communication Note: Will cancel consult to Dr. verma given patient's GI consult is Dr. Schaefer
[2018-05-19 12:23] LABS: PROLACTIN < 1.4 ng/mL (3.0-18.9)
--- NOTE | 2018-05-19 13:19 | RAD ---
Date of service: 05/19/2018 HISTORY: abdominal pain, acute renal failure COMPARISON: 05/09/2018 FINDINGS: BOWEL: Chain sutures in the right upper quadrant noted-similar there is paucity of bowel gas present-. There is a loop of bowel apparent with complete side aside valvular conniventes within it suggested. This most cephalad loop of this gas-filled bowel loop (small-bowel inferred) is mildly prominent in caliber at 4.3 cm. Inferior to this loop the loop of bowel gas is indeterminate regarding its origin-small versus large bowel Clinical correlation is needed in terms of the prior inferred bowel surgery that has occurred in this patient. The flanking bowel gas right lateral and left lateral otherwise is not distended. No complete bowel obstruction appreciated BONES: Lumbar spondylosis. Bilateral hip arthrosis. Mild bilateral L5-S1 facet hypertrophic arthrosis. No fracture seen OTHER FINDINGS: Bilateral hemipelvic calcification-bilateral phleboliths favored. IMPRESSION: One small bowel loop (the more cephalad of the left lower abdominal bowel loops projecting over the left iliac crest) appears borderline distended on series 3538 image 3-. A partial small-bowel obstruction is 1 consideration. Top normal variant is another.. Clinical follow-up and correlation recommended. The regional inferior gas-filled loop of bowel here is indeterminate in its origin - being small or large bowel
[2018-05-19] MEDS ORDERED: Sodium Chloride 0.9% 1,000 ML IV ONE (14:32)
--- NOTE | 2018-05-19 16:12 | CP.PCM.CON ---
History of Present Illness - History of Present Illness History of Present Illness: Reason for consultation: bilateral pleural effusion 62-year-old female with history of hypertension, pleural effusion status post thoracentesis x2, OR status post CABG last year followed by craniotomy for prolactinoma presented with 2-day history of vomiting and abdominal pain. Denies shortness of breath, denies cough, denies fevers chills, denies chest pain. Chest x-ray consistent with small bilateral pleural effusions. PMHx: HTN, hypercholesterolemia, OR, CABG (triple vessel disease), prolactinoma s/p craniotomy PSHx: 4 c-sections, pericardial window at 18 years old secondary to pericardial effusion, craniotomy April 2018, CABG March 2018 Meds: Metoprolol 12.5 mg PO BID, ASA 81 mg PO daily, Crestor 10 mg PO daily, Levothyroxine 50 mcg daily Allergies: NKDA Social: denies tobacco and illicit drug use. Occasional alcohol use. Lives alone. Family Hx: Maternal grandmother colon cancer, mother- cervical cancer. Review of Systems - Review of Systems All systems: reviewed and no additional remarkable complaints except (Vomiting and abdominal pain) Past Patient History - Infectious Disease Hx of Infectious Diseases: None - Past Medical History & Family History Past Medical History?: Yes - Past Social History Smoking Status: Never Smoked - CARDIAC Hx Cardiac Disorders: Yes Hx Congestive Heart Failure: Yes Hx Hypercholesterolemia: Yes Hx Hypertension: Yes Other/Comment: s/p CABG 02/2018 - PULMONARY Hx Respiratory Disorders: No Other/Comment: Bilateral pleural effusion s/p thoracentesis last week - NEUROLOGICAL Hx Neurological Disorder: No Hx Dizziness: Yes - HEENT Hx HEENT Problems: No - RENAL Hx Chronic Kidney Disease: No - ENDOCRINE/METABOLIC Hx Endocrine Disorders: Yes Hx Diabetes Mellitus Type 2: Yes - HEMATOLOGICAL/ONCOLOGICAL Hx Blood Transfusion Reaction: (pt refuses blood transfusion) Other/Comment: pituitary tumor removed - INTEGUMENTARY Hx Dermatological Problems: No - MUSCULOSKELETAL/RHEUMATOLOGICAL Hx Falls: No Other/Comment: pt c/o weakness - GASTROINTESTINAL Hx Gastrointestinal Disorders: Yes Hx Vomiting: Yes - GENITOURINARY/GYNECOLOGICAL Hx Genitourinary Disorders: No - PSYCHIATRIC Hx Psychophysiologic Disorder: No Hx Substance Use: No - SURGICAL HISTORY Hx Surgeries: Yes Hx Coronary Artery Bypass Graft: Yes (02/2018) Hx Coronary Stent: Yes - ANESTHESIA Hx Anesthesia: Yes Hx Anesthesia Reactions: No Meds Allergies/Adverse Reactions: Allergies Allergy/AdvReac Type Severity Reaction Status Date / Time No Known Allergies Allergy Verified 05/18/18 10:17 - Medications Medications: Current Medications Albuterol/Ipratropium (Duoneb 3 Mg/0.5 Mg (3 Ml) Ud) 3 ml INH RQ6 PRN PRN Reason: Shortness of Breath Aspirin (Ecotrin) 81 mg PO DAILY [facility] Last Admin: 05/19/18 10:15 Dose: 81 mg Dextrose (Dextrose 50% Inj) 0 ml IV STAT PRN; Protocol PRN Reason: Hypoglycemia Protocol Dextrose (Glutose 15) 0 gm PO ONCE PRN; Protocol PRN Reason: Hypoglycemia Protocol Glucagon (Glucagen Diagnostic Kit) 0 mg IM STAT PRN; Protocol PRN Reason: Hypoglycemia Protocol Heparin Sodium (Porcine) (Heparin) 5,000 units SC Q8 [facility] Last Admin: 05/19/18 13:59 Dose: 5,000 units Hydrocortisone Sodium Succinate (Solu-Cortef) 25 mg IV Q12 [facility] Last Admin: 05/19/18 10:16 Dose: 25 mg Dextrose (Dextrose 5% In Water 1000 Ml) 1,000 mls @ 0 mls/hr IV .Q0M PRN; Protocol PRN Reason: Hypoglycemia Protocol Sodium Chloride (Sodium Chloride 0.9%) 1,000 mls @ 80 mls/hr IV .[id number] ONE Stop: 05/20/18 03:01 Levothyroxine Sodium (Synthroid) 50 mcg PO DAILY@0630 [facility] Last Admin: 05/19/18 05:49 Dose: 50 mcg Metoprolol Tartrate (Lopressor) 12.5 mg PO BID [facility] Last Admin: 05/19/18 10:26 Dose: 12.5 mg Ondansetron HCl (Zofran Inj) 4 mg IVP Q6H PRN PRN Reason: Nausea/Vomiting Last Admin: 05/18/18 18:59 Dose: 4 mg Rosuvastatin Calcium (Crestor) 5 mg PO HS [facility] Last Admin: 05/18/18 21:26 Dose: 5 mg Physical Exam - Head Exam Head Exam: ATRAUMATIC, NORMOCEPHALIC - ENT Exam ENT Exam: Mucous Membranes Moist - Neck Exam Neck exam: Positive for: Normal Inspection - Respiratory Exam Respiratory Exam: Decreased Breath Sounds - Cardiovascular Exam Cardiovascular Exam: REGULAR RHYTHM - GI/Abdominal Exam GI & Abdominal Exam: Normal Bowel Sounds - Extremities Exam Extremities exam: Positive for: normal inspection - Neurological Exam Neurological exam: Alert, Oriented x3 Results - Vital Signs Recent Vital Signs: Last Vital Signs Temp 97.9 F 05/19/18 07:00 Pulse 68 05/19/18 12:00 Resp 20 05/19/18 07:00 BP 107/71 05/19/18 10:29 Pulse Ox 96 05/19/18 07:00 - Labs Result Diagrams: 05/19/18 07:41 05/19/18 07:41 Labs: Laboratory Results - last 24 hr 05/18/18 05/18/18 05/18/18 17:28 18:44 21:10 WBC RBC Hgb Hct MCV MCH MCHC RDW Plt Count MPV Neut % (Auto) Lymph % (Auto) [place] % (Auto) Eos % (Auto) Baso % (Auto) Neut # (Auto) Lymph # (Auto) [place] # (Auto) Eos # (Auto) Baso # (Auto) Sodium Potassium Chloride Carbon Dioxide Anion Gap BUN Creatinine Est GFR ( Amer) Est GFR (Non-Af Amer) POC Glucose (mg/dL) 92 105 Random Glucose Calcium Phosphorus Magnesium Total Bilirubin AST ALT Alkaline Phosphatase Total Creatine Kinase 52 CK-MB (Mass) < 0.22 Troponin I 0.0250 Total Protein Albumin Globulin Albumin/Globulin Ratio Lipase Free T4 Thyroxine (T4) TSH 3rd Generation Prolactin Cortisol AM Sample Urine Color Urine Clarity Urine pH Ur Specific [place] Urine Protein Urine Glucose (UA) Urine Ketones Urine Blood Urine Nitrate Urine Bilirubin Urine Urobilinogen Ur Leukocyte Esterase Urine WBC (Auto) Urine RBC (Auto) Ur Squamous Epith Cells Urine Bacteria Hyaline Casts 05/18/18 05/18/18 05/19/18 21:40 22:04 00:24 WBC RBC Hgb Hct MCV MCH MCHC RDW Plt Count MPV Neut % (Auto) Lymph % (Auto) [place] % (Auto) Eos % (Auto) Baso % (Auto) Neut # (Auto) Lymph # (Auto) [place] # (Auto) Eos # (Auto) Baso # (Auto) Sodium 133 Potassium 4.1 Chloride 93 L Carbon Dioxide 31 H Anion Gap 13 BUN 12 Creatinine 2.1 H Est GFR ( Amer) 29 Est GFR (Non-Af Amer) 24 POC Glucose (mg/dL) Random Glucose 94 Calcium 8.4 L Phosphorus Magnesium 2.2 Total Bilirubin AST ALT Alkaline Phosphatase Total Creatine Kinase 48 CK-MB (Mass) < 0.22 Troponin I 0.0250 Total Protein Albumin Globulin Albumin/Globulin Ratio Lipase Free T4 Thyroxine (T4) TSH 3rd Generation Prolactin Cortisol AM Sample Urine Color Yellow Urine Clarity Sl hazy Urine pH 6.0 Ur Specific [place] 1.025 Urine Protein Trace Urine Glucose (UA) Negative Urine Ketones 15 Urine Blood Negative Urine Nitrate Negative Urine Bilirubin Moderate Urine Urobilinogen 0.2 Ur Leukocyte Esterase Negative Urine WBC (Auto) 27 H Urine RBC (Auto) 6 H Ur Squamous Epith Cells 14 H Urine Bacteria Rare Hyaline Casts >20 H 05/19/18 05/19/18 05/19/18 06:41 07:41 07:41 WBC 5.1 RBC 4.17 Hgb 11.9 Hct 35.7 MCV 85.8 MCH 28.5 MCHC 33.2 RDW 17.6 H Plt Count 268 MPV 9.7 Neut % (Auto) 42.0 L Lymph % (Auto) 37.8 [place] % (Auto) 13.5 H Eos % (Auto) 5.7 H Baso % (Auto) 1.0 Neut # (Auto) 2.1 Lymph # (Auto) 1.9 [place] # (Auto) 0.7 Eos # (Auto) 0.3 Baso # (Auto) 0.0 Sodium 132 Potassium 3.7 Chloride 96 L Carbon Dioxide 31 H Anion Gap 9 L BUN 10 Creatinine 1.7 H Est GFR ( Amer) 37 Est GFR (Non-Af Amer) 30 POC Glucose (mg/dL) 86 Random Glucose 85 Calcium 8.3 L Phosphorus 2.5 Magnesium 2.0 Total Bilirubin 0.4 AST 29 ALT 16 Alkaline Phosphatase 83 Total Creatine Kinase CK-MB (Mass) Troponin I Total Protein 6.3 Albumin 3.7 Globulin 2.7 Albumin/Globulin Ratio 1.4 Lipase 35 Free T4 Thyroxine (T4) 13.4 H TSH 3rd Generation < 0.02 L Prolactin < 1.4 L Cortisol AM Sample Urine Color Urine Clarity Urine pH Ur Specific Enterprise Urine Protein Urine Glucose (UA) Urine Ketones Urine Blood Urine Nitrate Urine Bilirubin Urine Urobilinogen Ur Leukocyte Esterase Urine WBC (Auto) Urine RBC (Auto) Ur Squamous Epith Cells Urine Bacteria Hyaline Casts 05/19/18 05/19/18 05/19/18 07:41 07:41 10:57 WBC RBC Hgb Hct MCV MCH MCHC RDW Plt Count MPV Neut % (Auto) Lymph % (Auto) [place] % (Auto) Eos % (Auto) Baso % (Auto) Neut # (Auto) Lymph # (Auto) [place] # (Auto) Eos # (Auto) Baso # (Auto) Sodium Potassium Chloride Carbon Dioxide Anion Gap BUN Creatinine Est GFR ( Amer) Est GFR (Non-Af Amer) POC Glucose (mg/dL) 153 H Random Glucose Calcium Phosphorus Magnesium Total Bilirubin AST ALT Alkaline Phosphatase Total Creatine Kinase CK-MB (Mass) Troponin I Total Protein Albumin Globulin Albumin/Globulin Ratio Lipase Free T4 1.70 Thyroxine (T4) TSH 3rd Generation Prolactin Cortisol AM Sample 5.4 Urine Color Urine Clarity Urine pH Ur Specific Enterprise Urine Protein Urine Glucose (UA) Urine Ketones Urine Blood Urine Nitrate Urine Bilirubin Urine Urobilinogen Ur Leukocyte Esterase Urine WBC (Auto) Urine RBC (Auto) Ur Squamous Epith Cells Urine Bacteria Hyaline Casts Assessment & Plan (1) Pleural effusion Assessment and Plan: Status post thoracentesis during last admission and pleural fluid consistent with exudate Recent chest x-ray done showed small bilateral pleural effusion Patient is afebrile with normal white count Continue Lasix GI workup Does not need any intervention at this time Will need pleural biopsy if fluid re-accumulates Status: Acute (2) Vomiting Status: Acute
--- NOTE | 2018-05-19 17:36 | CT ---
Date of service: 05/19/2018 PROCEDURE: CT Abdomen and Pelvis without intravenous contrast HISTORY: Vomiting lower abdominal/pelvic pain. COMPARISON: None. TECHNIQUE: Unenhanced. Neither IV nor oral contrast administered Radiation dose: Total exam DLP = 1077.89 mGy-cm. This CT exam was performed using one or more of the following dose reduction techniques: Automated exposure control, adjustment of the mA and/or kV according to patient size, and/or use of iterative reconstruction technique. FINDINGS: LOWER THORAX: Incompletely visualized small pleural effusions, findings identified on recent CT scan of the thorax 05/09/2018. LIVER: Unremarkable. No gross lesion or ductal dilatation. GALLBLADDER AND BILE DUCTS: Unremarkable. PANCREAS: Unremarkable. No gross lesion or ductal dilatation. SPLEEN: Unremarkable. ADRENALS: Unremarkable. No mass. KIDNEYS AND URETERS: Unremarkable. No hydronephrosis. No solid mass. VASCULATURE: Unremarkable. No aortic aneurysm. Atherosclerotic calcification and mural plaque present. Findings are seen throughout the aorta and iliac vessels. BOWEL: Diverticulosis without an acute inflammatory component or other associated pathologic process. Surgical suture line in the ascending colon an incidental finding. No abnormalities at the anastomotic site. APPENDIX: A normal appendix is visualized in it's entirety. PERITONEUM: Unremarkable. No free fluid. No free air. LYMPH NODES: Unremarkable. No enlarged lymph nodes. BLADDER: Unremarkable. REPRODUCTIVE: Unremarkable. BONES: No acute fracture. OTHER FINDINGS: None. IMPRESSION: No significant or acute findings to account for/ related to the clinical presentation. Additional benign and/or incidental findings described above.
[2018-05-20] MEDS: Levothyroxine 50 MCG TAB PO SCH (06:37)
--- NOTE | 2018-05-20 06:55 | CON ---
DATE: 05/19/2018 LOCATION: Room #550, Bed B ATTENDING PHYSICIAN: Naila Chavez DO REASON FOR CONSULTATION: Intractable vomiting. CHIEF COMPLAINT: The patient was brought into [facility] with a history of intractable vomiting. From a neurological point of view, I was called into evaluate her because of her abnormal neurological history and history of brain tumor. HISTORY OF PRESENT ILLNESS: The patient is a 62-year-old right-handed female who was presenting with intractable vomiting, weakness and low blood pressure. From a neurological point of view, I was called in because of her pituitary tumor. She did have surgery in March pituitary surgery through transsphenoidal route . She was told the whole tumor was taken out. The surgery was done in [facility]. She was admitted recently in hospital a week ago and she has been worked up extensively from neurological point of view as she was neurologically stable and should have followup visit with the neurosurgeon and neurologist as outpatient. This time, the patient is admitted with intractable vomiting. She denies any focal headache. She denies any new visual disturbances. No history of focal weakness. PAST MEDICAL HISTORY: Hypertension, gastroesophageal reflux disease, pituitary tumor. PERSONAL HISTORY: Denies smoking or alcohol use. ALLERGIES: NO KNOWN ALLERGIES. REVIEW OF SYSTEMS: A 12-point system been reviewed. From neuro, intractable vomiting; possible central cause. MEDICATIONS: Crestor, aspirin, heparin, Lopressor, Synthroid and steroid. PHYSICAL EXAMINATION: VITAL SIGNS: Blood pressure 110/75, mean artery pressure of 86, respiratory 18, temperature at 97.9 with a pulse rate 77 regular. NECK: Supple. No carotid bruits. HEART: S1 and S2 regular. LUNGS: Fair air entry. EXTREMITIES: No edema. NEUROLOGIC EXAMINATION: Mental status examination: He is awake, alert and oriented to person, place and time. Speech is clear. Naming, repetition, fluency, comprehension all within normal. Cranial nerve examination: Visual field intact. Right homonymous hemianopsia noted which is old. No facial sensory deficit observed. No facial asymmetry. Hearing is normal. Tongue is midline. Good gag. Motor examination: Outstretched no drift noted. Power is symmetric on either the deep tendon flexes absent throughout. Plantars are downgoing. Sensory examination: Mild sensory motor neuropathy. Coordination: Finger-nose test is intact. Gait: Deferred at this time. CONCLUSION: On reviewing her medical history and as per my neurological examination, the patient does have intractable vomiting as per the history without any new long tract sign as per examination. The patient has extensively worked up in the past. At this time I would like to observe her, if her neuro status is changed, she will probably need further workup if needed. In meantime, continue hydration and rule out the cause for her vomiting. The patient will be followed closely with you. Lenin Brown MD MTDD
--- NOTE | 2018-05-20 06:59 | CP.PCM.PN ---
Subjective - Date & Time of Evaluation Date of Evaluation: 05/20/18 Time of Evaluation: 06:59 Objective - Vital Signs/Intake and Output Vital Signs (last 24 hours): Temp Pulse Resp BP Pulse Ox 97.6 F 86 18 115/74 94 L 05/19/18 23:58 05/20/18 04:03 05/19/18 23:58 05/19/18 23:58 05/19/18 23:58 Intake and Output: 05/19/18 05/20/18 18:59 06:59 Intake Total 1400 Balance 1400 - Medications Medications: Current Medications Albuterol/Ipratropium (Duoneb 3 Mg/0.5 Mg (3 Ml) Ud) 3 ml INH RQ6 PRN PRN Reason: Shortness of Breath Aspirin (Ecotrin) 81 mg PO DAILY [facility] Last Admin: 05/19/18 10:15 Dose: 81 mg Dextrose (Dextrose 50% Inj) 0 ml IV STAT PRN; Protocol PRN Reason: Hypoglycemia Protocol Dextrose (Glutose 15) 0 gm PO ONCE PRN; Protocol PRN Reason: Hypoglycemia Protocol Glucagon (Glucagen Diagnostic Kit) 0 mg IM STAT PRN; Protocol PRN Reason: Hypoglycemia Protocol Heparin Sodium (Porcine) (Heparin) 5,000 units SC Q8 [facility] Last Admin: 05/20/18 06:38 Dose: Not Given Hydrocortisone Sodium Succinate (Solu-Cortef) 25 mg IV Q12 [facility] Last Admin: 05/19/18 22:15 Dose: 25 mg Dextrose (Dextrose 5% In Water 1000 Ml) 1,000 mls @ 0 mls/hr IV .Q0M PRN; Protocol PRN Reason: Hypoglycemia Protocol Levothyroxine Sodium (Synthroid) 50 mcg PO DAILY@0630 [facility] Last Admin: 05/20/18 06:37 Dose: 50 mcg Metoprolol Tartrate (Lopressor) 12.5 mg PO BID [facility] Last Admin: 05/19/18 17:51 Dose: 12.5 mg Ondansetron HCl (Zofran Inj) 4 mg IVP Q6H PRN PRN Reason: Nausea/Vomiting Last Admin: 05/18/18 18:59 Dose: 4 mg Rosuvastatin Calcium (Crestor) 5 mg PO HS [facility] Last Admin: 05/19/18 22:15 Dose: 5 mg - Labs Labs: 05/19/18 07:41 05/19/18 07:41 PT 14.6 SECONDS (9.7-12.2) H 05/18/18 11:53 INR 1.3 05/18/18 11:53 APTT 39 SECONDS (21-34) H 05/18/18 11:53
[2018-05-20 07:36] LABS: BASO % 0.7 % (0.0-2.0); EOS % 0.1 % (0.0-4.0); HEMOGLOBIN 11.4 g/dL (11.0-16.0); LYMPH # 1.3 K/uL (1.0-4.3); LYMPH % 25.8 % (20.0-40.0); MEAN CELL VOLUME 85.6 fL (81.0-99.0); MEAN CORPUSCULAR HEMOGLOBIN 28.3 pg (27.0-31.0); MEAN PLATELET VOLUME 9.8 fL (7.2-11.7); MONO # 0.2 K/uL (0.0-0.8); MONO % 4.6 % (0.0-10.0); NEUT # 3.6 K/uL (1.8-7.0); NEUT % 68.8 % (50.0-75.0); NRBC % 0.1 % (0.0-2.0); RBC 4.04 Mil/uL (3.80-5.20); RED CELL DISTRIBUTION WIDTH 18.1 % (11.5-14.5); WHITE BLOOD COUNT 5.2 K/uL (4.8-10.8)
[2018-05-20 07:51] LABS: ALB/GLOB RATIO 1.3 (1.0-2.1); ALBUMIN 3.6 g/dL (3.5-5.0); ALT/SGPT 16 U/L (9-52); AST/SGOT 23 U/L (14-36); BLOOD UREA NITROGEN 8 mg/dL (7-17); CALCIUM 8.2 mg/dl (8.6-10.4); GFR NON-AFRICAN AMERICAN 56
[2018-05-20 08:21] VITALS: RESP 20; TEMP 97.3
--- NOTE | 2018-05-20 10:14 | PN ---
DATE: 05/20/2018 TIME OF EVALUATION: 07:05 a.m. NEUROLOGICAL PROBLEM: Intractable vomiting and abdominal discomfort from neuro. The patient is stable. PHYSICAL EXAMINATION: VITAL SIGNS: Blood pressure 115/74, mean arterial pressure of 87, respiratory rate 18, pulse rate 86 and regular, and temperature 97.6. NEUROLOGIC: The patient is awake and alert. Mental status is normal. No focalities noted as per neurological examination. 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 The patient is to do workup with the GI. Neurologically, the patient is stable at present. Lenin Brown MD
--- NOTE | 2018-05-20 10:57 | CP.PCM.CON ---
History of Present Illness - History of Present Illness History of Present Illness: CC: Patient s/p CABG, CAD admitted with abdominal pain and nausea This is a 62 year old female with PMHx of HTN, hypercholesterolemia, PR, CABG (triple vessel disease), prolactinoma s/p craniotomy who presents with a 2 day history of vomiting, and abdominal pain. Vomiting is described as watery material, 3 episodes yesterday and 5 episodes in the ED today. Abdominal pain is described as lower abdominal pain, intermittent, non radiating and occurring after these episodes of vomiting. Pt also endorses a 2 month history of weakness described as feeling drained and decreased appetite since her CABG in March 2018. Patient denies palpitations, shortness of breath, cough, nausea, vomiting, fever, chills, trauma, leg swelling, and recent travel. She was recently admitted for similar symptoms (05/09-05/13), and discharged on Lasix 40 mg PO daily. Pt took Lasix for 5 days, and finished it 05/17. PMD: Lash[place] Cardio: Aidan Pulm: Harsha Endocrinology: [place]/ [facility] PMHx: HTN, hypercholesterolemia, PR, CABG (triple vessel disease), prolactinoma s/p craniotomy PSHx: 4 c-sections, pericardial window at 18 years old secondary to pericardial effusion, craniotomy April 2018, CABG March 2018 Meds: Metoprolol 12.5 mg PO BID, ASA 81 mg PO daily, Crestor 10 mg PO daily, Levothyroxine 50 mcg daily Allergies: NKDA Social: denies tobacco and illicit drug use. Occasional alcohol use. Lives alone. Family Hx: Maternal grandmother colon cancer, mother- cervical cancer. Proxy: Gerson Hernandez [phone] Pharmacy: [facility] Advanced directive on file. Code status: full code Present on Admission - Present on Admission Any Indicators Present on Admission: No Review of Systems - Review of Systems All systems: reviewed and no additional remarkable complaints except (as per HPI) Physical Exam - Constitutional Appears: Non-toxic, No Acute Distress - Head Exam Head Exam: NORMAL INSPECTION - Eye Exam Eye Exam: EOMI, Normal appearance - ENT Exam ENT Exam: Mucous Membranes Dry - Respiratory Exam Respiratory Exam: Rales (minimally at the bases bilaterally), NORMAL BREATHING PATTERN. absent: Rhonchi, Wheezes, Respiratory Distress - Cardiovascular Exam Cardiovascular Exam: REGULAR RHYTHM, +S1, +S2. absent: Tachycardia, Diastolic murmur, Irregular Rhythm - GI/Abdominal Exam GI & Abdominal Exam: Normal Bowel Sounds, Soft (obese). absent: Distended, Firm, Guarding, Rebound, Rigid, Tenderness (on deep palpation) - Extremities Exam Extremities exam: Positive for: normal capillary refill, normal inspection, pedal pulses present. Negative for: calf tenderness, pedal edema, tenderness - Back Exam Back exam: NORMAL INSPECTION. absent: CVA tenderness (L), CVA tenderness (R) - Neurological Exam Neurological exam: Alert, CN II-XII Intact, Oriented x3 Additional comments: 5/5 strength in bilateral upper and lower extremities - Skin Skin Exam: Dry, Normal Color, Warm Additional comments: decreased skin turgor (+) well healing midline CABG scar Assessment & Plan - Assessment and Plan (Free Text) Assessment: This is a 62 year old female with PMHx of HTN, hypercholesterolemia, PR, CABG (triple vessel disease), prolactinoma s/p craniotomy who presents with a 2 day history of vomiting, and abdominal pain. Found to be hypokalemic and hypomagnesemic, with VINNY; s/p oral lasix treatment. Plan: Acute Renal Failure; likely secondary to furosemide diuresis BUN/Cr is 12/2.3 On Telemetry Hold LIZANDRO/ARB Nephrology, Dr. Bryan, consulted. Recommendations appreciated. F/u UA, urine culture Bladder scan shows 30 cc F/u renal/bladder US Hypokalemia, likely secondary to furosemide diuresis Hypomagnesemia EKG shows flattened t waves with TWIs Potassium 2.8 repleted Magnesium 1.3 repleted F/u BMP, magnesium in evening F/u repeat EKG Nausea/Vomiting F/u TSH, free T4 Zofran 4 mg IVP q6h prn F/u Head CT; pt is s/p prolactinoma removal F/u prolactin level Neurochecks q4 Diabetes, controlled HgA1c is 5.7 (Feb 2018) Acuchecks q6h Hypoglycemia protocol Hx of prolactinoma F/u head ct, prolactin level Pt is on cabergoline once weekly, on hold until endocrinology evaluation Endocrinology, Dr. Schumacher, consulted. Recommendations appreciated Hx of CABG/triple vessel disease ASA 81 mg PO daily, Metoprolol tartrate 12.5 mg PO BID Avoid LIZANDRO/ARB due to acute renal failure Avoid lasix due to acute renal failure Crestor 5 mg PO QHS troponin x1 is 0.0390; will trend x2 q6h with EKG PPX CT Head r/o bleed prior to lovenox 30 mg sc daily. Pt is ambulatory. GI ppx iwth protonix 40 mg IVP daily Fall/aspiration precautions Neurochecks q4h Past Patient History - Infectious Disease Hx of Infectious Diseases: None - Past Medical History & Family History Past Medical History?: Yes - Past Social History Smoking Status: Never Smoked - CARDIAC Hx Cardiac Disorders: Yes Hx Congestive Heart Failure: Yes Hx Hypercholesterolemia: Yes Hx Hypertension: Yes Other/Comment: s/p CABG 02/2018 - PULMONARY Hx Respiratory Disorders: No Other/Comment: Bilateral pleural effusion s/p thoracentesis last week - NEUROLOGICAL Hx Neurological Disorder: No Hx Dizziness: Yes - HEENT Hx HEENT Problems: No - RENAL Hx Chronic Kidney Disease: No - ENDOCRINE/METABOLIC Hx Endocrine Disorders: Yes Hx Diabetes Mellitus Type 2: Yes - HEMATOLOGICAL/ONCOLOGICAL Hx Blood Transfusion Reaction: (pt refuses blood transfusion) Other/Comment: pituitary tumor removed - INTEGUMENTARY Hx Dermatological Problems: No - MUSCULOSKELETAL/RHEUMATOLOGICAL Hx Falls: No Other/Comment: pt c/o weakness - GASTROINTESTINAL Hx Gastrointestinal Disorders: Yes Hx Vomiting: Yes - GENITOURINARY/GYNECOLOGICAL Hx Genitourinary Disorders: No - PSYCHIATRIC Hx Psychophysiologic Disorder: No Hx Substance Use: No - SURGICAL HISTORY Hx Surgeries: Yes Hx Coronary Artery Bypass Graft: Yes (02/2018) Hx Coronary Stent: Yes - ANESTHESIA Hx Anesthesia: Yes Hx Anesthesia Reactions: No Meds Allergies/Adverse Reactions: Allergies Allergy/AdvReac Type Severity Reaction Status Date / Time No Known Allergies Allergy Verified 05/18/18 10:17 - Medications Medications: Current Medications Albuterol/Ipratropium (Duoneb 3 Mg/0.5 Mg (3 Ml) Ud) 3 ml INH RQ6 PRN PRN Reason: Shortness of Breath Aspirin (Ecotrin) 81 mg PO DAILY [facility] Last Admin: 05/20/18 09:09 Dose: 81 mg Dextrose (Dextrose 50% Inj) 0 ml IV STAT PRN; Protocol PRN Reason: Hypoglycemia Protocol Dextrose (Glutose 15) 0 gm PO ONCE PRN; Protocol PRN Reason: Hypoglycemia Protocol Glucagon (Glucagen Diagnostic Kit) 0 mg IM STAT PRN; Protocol PRN Reason: Hypoglycemia Protocol Heparin Sodium (Porcine) (Heparin) 5,000 units SC Q8 [facility] Last Admin: 05/20/18 06:38 Dose: Not Given Hydrocortisone Sodium Succinate (Solu-Cortef) 25 mg IV Q12 [facility] Last Admin: 05/20/18 09:05 Dose: 25 mg Dextrose (Dextrose 5% In Water 1000 Ml) 1,000 mls @ 0 mls/hr IV .Q0M PRN; Protocol PRN Reason: Hypoglycemia Protocol Levothyroxine Sodium (Synthroid) 50 mcg PO DAILY@0630 [facility] Last Admin: 05/20/18 06:37 Dose: 50 mcg Metoprolol Tartrate (Lopressor) 12.5 mg PO BID [facility] Last Admin: 05/20/18 09:08 Dose: 12.5 mg Ondansetron HCl (Zofran Inj) 4 mg IVP Q6H PRN PRN Reason: Nausea/Vomiting Last Admin: 05/18/18 18:59 Dose: 4 mg Rosuvastatin Calcium (Crestor) 5 mg PO HS [facility] Last Admin: 05/19/18 22:15 Dose: 5 mg Results - Vital Signs Recent Vital Signs: Last Vital Signs Temp 97.3 F L 05/20/18 08:20 Pulse 77 05/20/18 08:20 Resp 20 05/20/18 08:20 BP 104/65 05/20/18 08:20 Pulse Ox 95 05/20/18 08:20 - Labs Result Diagrams: 05/20/18 07:18 05/20/18 07:18 Labs: Laboratory Results - last 24 hr 05/19/18 05/19/18 05/20/18 07:41 10:57 07:18 WBC 5.2 RBC 4.04 Hgb 11.4 Hct 34.6 MCV 85.6 MCH 28.3 MCHC 33.0 RDW 18.1 H Plt Count 258 MPV 9.8 Neut % (Auto) 68.8 Lymph % (Auto) 25.8 [place] % (Auto) 4.6 Eos % (Auto) 0.1 Baso % (Auto) 0.7 Neut # (Auto) 3.6 Lymph # (Auto) 1.3 [place] # (Auto) 0.2 Eos # (Auto) 0.0 Baso # (Auto) 0.0 Sodium Potassium Chloride Carbon Dioxide Anion Gap BUN Creatinine Est GFR ( Amer) Est GFR (Non-Af Amer) POC Glucose (mg/dL) 153 H Random Glucose Calcium Phosphorus Magnesium Total Bilirubin AST ALT Alkaline Phosphatase Total Protein Albumin Globulin Albumin/Globulin Ratio Prolactin < 1.4 L 05/20/18 07:18 WBC RBC Hgb Hct MCV MCH MCHC RDW Plt Count MPV Neut % (Auto) Lymph % (Auto) [place] % (Auto) Eos % (Auto) Baso % (Auto) Neut # (Auto) Lymph # (Auto) [place] # (Auto) Eos # (Auto) Baso # (Auto) Sodium 135 Potassium 3.7 Chloride 101 Carbon Dioxide 26 Anion Gap 11 BUN 8 Creatinine 1.0 Est GFR ( Amer) > 60 Est GFR (Non-Af Amer) 56 POC Glucose (mg/dL) Random Glucose 115 H D Calcium 8.2 L Phosphorus 2.0 L Magnesium 1.7 Total Bilirubin 0.4 AST 23 ALT 16 Alkaline Phosphatase 79 Total Protein 6.4 Albumin 3.6 Globulin 2.8 Albumin/Globulin Ratio 1.3 Prolactin
--- NOTE | 2018-05-20 11:09 | CP.PCM.CON ---
History of Present Illness - History of Present Illness History of Present Illness: Patient is a 62 yo AA female well known to me for many years with h/o Rectal Carcinoid removed endoscopically, colon polyps last exam 05/2017 with inadequate preparation, reflux esophagitis, gastritis, fundic gland gastric polyps who was admitted with upper abdominal pain, N/V. Was admitted for similar findings and pleural effusion two weeks ago. Reports today she is tolerating diet and has no N/V. No C/D, bleeding or melena. Patient s/p craniotomy for prolactinoma 03/24, S/P CABG 02/22 both at [facility]. Has been non-compliant with follow up since last seen 06/22. Found to have renal insufficiency due to dehydration and vomiting. Review of Systems - Cardiovascular Cardiovascular: absent: Chest Pain, Dyspnea - Respiratory Respiratory: absent: Cough - Gastrointestinal Gastrointestinal: As Per HPI. absent: Constipation, Diarrhea, Melena Past Patient History - Infectious Disease Hx of Infectious Diseases: None - Past Medical History & Family History Past Medical History?: Yes - Past Social History Smoking Status: Never Smoked Alcohol: None Drugs: Denies - CARDIAC Hx Cardiac Disorders: Yes Hx Congestive Heart Failure: Yes Hx Hypercholesterolemia: Yes Hx Hypertension: Yes Other/Comment: s/p CABG 02/2018 - PULMONARY Hx Respiratory Disorders: No Other/Comment: Bilateral pleural effusion s/p thoracentesis last week - NEUROLOGICAL Hx Neurological Disorder: No Hx Dizziness: Yes - HEENT Hx HEENT Problems: No - RENAL Hx Chronic Kidney Disease: No - ENDOCRINE/METABOLIC Hx Endocrine Disorders: Yes Hx Diabetes Mellitus Type 2: Yes - HEMATOLOGICAL/ONCOLOGICAL Hx Blood Transfusion Reaction: (pt refuses blood transfusion) Hx Cirrhosis: No Hx Hepatitis A: No Hx Hepatitis B: No Hx Hepatitis C: No Hx Human Immunodeficiency Virus (HIV): No Other/Comment: pituitary tumor removed - INTEGUMENTARY Hx Dermatological Problems: No - MUSCULOSKELETAL/RHEUMATOLOGICAL Hx Falls: No Other/Comment: pt c/o weakness - GASTROINTESTINAL Hx Gastrointestinal Disorders: Yes Hx Bowel Surgery: Yes (Partial colectomy for malignant polyp) Hx Clostridium Difficile: No Hx Colitis: No Hx Colostomy: No Hx Constipation: No Hx Crohn's Disease: No Hx Diarrhea: No Hx Diverticulitis: No Hx Esophageal Varices: No Hx Fatty Liver Disease: No Hx Gall Bladder Disease: No Hx Gastritis: Yes Hx Gastroesophageal Reflux: Yes Hx Hemorrhoids: Yes Hx Ileostomy: No Hx Irritable Bowel: No Hx Liver Failure: No Hx Nausea: Yes Hx Pancreatitis: No HX Swallowing Problems: No Hx Ulcer: No Hx Vomiting: Yes - GENITOURINARY/GYNECOLOGICAL Hx Genitourinary Disorders: No - PSYCHIATRIC Hx Psychophysiologic Disorder: No Hx Substance Use: No - SURGICAL HISTORY Hx Surgeries: Yes Hx Coronary Artery Bypass Graft: Yes (02/2018) Hx Coronary Stent: Yes Other/Comment: Partial colectomy - ANESTHESIA Hx Anesthesia: Yes Hx Anesthesia Reactions: No Meds Allergies/Adverse Reactions: Allergies Allergy/AdvReac Type Severity Reaction Status Date / Time No Known Allergies Allergy Verified 05/18/18 10:17 - Medications Medications: Current Medications Albuterol/Ipratropium (Duoneb 3 Mg/0.5 Mg (3 Ml) Ud) 3 ml INH RQ6 PRN PRN Reason: Shortness of Breath Aspirin (Ecotrin) 81 mg PO DAILY [facility] Last Admin: 05/20/18 09:09 Dose: 81 mg Dextrose (Dextrose 50% Inj) 0 ml IV STAT PRN; Protocol PRN Reason: Hypoglycemia Protocol Dextrose (Glutose 15) 0 gm PO ONCE PRN; Protocol PRN Reason: Hypoglycemia Protocol Glucagon (Glucagen Diagnostic Kit) 0 mg IM STAT PRN; Protocol PRN Reason: Hypoglycemia Protocol Heparin Sodium (Porcine) (Heparin) 5,000 units SC Q8 [facility] Last Admin: 05/20/18 06:38 Dose: Not Given Hydrocortisone Sodium Succinate (Solu-Cortef) 25 mg IV Q12 [facility] Last Admin: 05/20/18 09:05 Dose: 25 mg Dextrose (Dextrose 5% In Water 1000 Ml) 1,000 mls @ 0 mls/hr IV .Q0M PRN; Protocol PRN Reason: Hypoglycemia Protocol Levothyroxine Sodium (Synthroid) 50 mcg PO DAILY@0630 [facility] Last Admin: 05/20/18 06:37 Dose: 50 mcg Metoprolol Tartrate (Lopressor) 12.5 mg PO BID [facility] Last Admin: 05/20/18 09:08 Dose: 12.5 mg Ondansetron HCl (Zofran Inj) 4 mg IVP Q6H PRN PRN Reason: Nausea/Vomiting Last Admin: 05/18/18 18:59 Dose: 4 mg Rosuvastatin Calcium (Crestor) 5 mg PO HS [facility] Last Admin: 05/19/18 22:15 Dose: 5 mg Physical Exam - Constitutional Appears: No Acute Distress - Head Exam Head Exam: ATRAUMATIC, NORMOCEPHALIC - Eye Exam Eye Exam: EOMI, PERRL - Respiratory Exam Respiratory Exam: NORMAL BREATHING PATTERN Additional comments: Thoracotomy scar - Cardiovascular Exam Cardiovascular Exam: REGULAR RHYTHM, +S1 - GI/Abdominal Exam GI & Abdominal Exam: Normal Bowel Sounds, Soft. absent: Guarding, Rebound, Tenderness Additional comments: Obese, midline scar - Extremities Exam Extremities exam: Positive for: normal inspection - Neurological Exam Neurological exam: Alert, Oriented x3 - Skin Skin Exam: Dry, Warm Results - Vital Signs Recent Vital Signs: Last Vital Signs Temp 97.3 F L 05/20/18 08:20 Pulse 77 05/20/18 08:20 Resp 20 05/20/18 08:20 BP 104/65 05/20/18 08:20 Pulse Ox 95 05/20/18 08:20 - Labs Result Diagrams: 05/20/18 07:18 05/20/18 07:18 Labs: Laboratory Results - last 24 hr 05/19/18 05/19/18 05/20/18 07:41 10:57 07:18 WBC 5.2 RBC 4.04 Hgb 11.4 Hct 34.6 MCV 85.6 MCH 28.3 MCHC 33.0 RDW 18.1 H Plt Count 258 MPV 9.8 Neut % (Auto) 68.8 Lymph % (Auto) 25.8 [place] % (Auto) 4.6 Eos % (Auto) 0.1 Baso % (Auto) 0.7 Neut # (Auto) 3.6 Lymph # (Auto) 1.3 [place] # (Auto) 0.2 Eos # (Auto) 0.0 Baso # (Auto) 0.0 Sodium Potassium Chloride Carbon Dioxide Anion Gap BUN Creatinine Est GFR ( Amer) Est GFR (Non-Af Amer) POC Glucose (mg/dL) 153 H Random Glucose Calcium Phosphorus Magnesium Total Bilirubin AST ALT Alkaline Phosphatase Total Protein Albumin Globulin Albumin/Globulin Ratio Prolactin < 1.4 L 05/20/18 07:18 WBC RBC Hgb Hct MCV MCH MCHC RDW Plt Count MPV Neut % (Auto) Lymph % (Auto) [place] % (Auto) Eos % (Auto) Baso % (Auto) Neut # (Auto) Lymph # (Auto) [place] # (Auto) Eos # (Auto) Baso # (Auto) Sodium 135 Potassium 3.7 Chloride 101 Carbon Dioxide 26 Anion Gap 11 BUN 8 Creatinine 1.0 Est GFR ( Amer) > 60 Est GFR (Non-Af Amer) 56 POC Glucose (mg/dL) Random Glucose 115 H D Calcium 8.2 L Phosphorus 2.0 L Magnesium 1.7 Total Bilirubin 0.4 AST 23 ALT 16 Alkaline Phosphatase 79 Total Protein 6.4 Albumin 3.6 Globulin 2.8 Albumin/Globulin Ratio 1.3 Prolactin - Imaging and Cardiology CT scan - abdomen Status: Image reviewed by me, Report reviewed by me Assessment & Plan (1) Epigastric pain Assessment and Plan: LIkely due to gastroenteritis in conjunction with h/o known MARGE/Gastritis and has not been on PPI since [place] Cardiac surgery. CT negative for obstruction or hernia. Vomiting has resolved as well. Resume Protonix 40mg daily and continue on discharge Advance diet as feeling better today. Status: Acute (2) Reflux esophagitis Assessment and Plan: as above Status: Acute (3) H/O adenomatous polyp of colon Assessment and Plan: Patient will require a repeat colonoscopy sometime this year, when cleared by cardiology, due to insufficient preparation when examined last year. h/o malignant polyps and h/o of partial colon resection. Status: Chronic (4) H/O malignant carcinoid tumor of rectum Assessment and Plan: Carcinoid treated endoscopically and no recurrence noted for many years. Status: Resolved (5) Vomiting Assessment and Plan: as above. has resolved. ADvance diet. Status: Acute
[2018-05-20] MEDS ORDERED: Pantoprazole 40 mg EC Tab PO SCH (11:15)
--- NOTE | 2018-05-20 12:59 | CP.PCM.PN ---
Subjective - Date & Time of Evaluation Date of Evaluation: 05/20/18 Time of Evaluation: 12:58 - Subjective Subjective: Patient alert and conscious not in distress. Patient feeling good appetite, and back no vomiting. Vital signs stable Objective - Vital Signs/Intake and Output Vital Signs (last 24 hours): Temp Pulse Resp BP Pulse Ox 97.3 F L 77 20 104/65 95 05/20/18 08:20 05/20/18 08:20 05/20/18 08:20 05/20/18 08:20 05/20/18 08:20 Intake and Output: 05/20/18 05/20/18 06:59 18:59 Intake Total 1400 Balance 1400 - Medications Medications: Current Medications Albuterol/Ipratropium (Duoneb 3 Mg/0.5 Mg (3 Ml) Ud) 3 ml INH RQ6 PRN PRN Reason: Shortness of Breath Aspirin (Ecotrin) 81 mg PO DAILY [facility] Last Admin: 05/20/18 09:09 Dose: 81 mg Dextrose (Dextrose 50% Inj) 0 ml IV STAT PRN; Protocol PRN Reason: Hypoglycemia Protocol Dextrose (Glutose 15) 0 gm PO ONCE PRN; Protocol PRN Reason: Hypoglycemia Protocol Glucagon (Glucagen Diagnostic Kit) 0 mg IM STAT PRN; Protocol PRN Reason: Hypoglycemia Protocol Heparin Sodium (Porcine) (Heparin) 5,000 units SC Q8 [facility] Last Admin: 05/20/18 06:38 Dose: Not Given Hydrocortisone Sodium Succinate (Solu-Cortef) 25 mg IV Q12 [facility] Last Admin: 05/20/18 09:05 Dose: 25 mg Dextrose (Dextrose 5% In Water 1000 Ml) 1,000 mls @ 0 mls/hr IV .Q0M PRN; Protocol PRN Reason: Hypoglycemia Protocol Levothyroxine Sodium (Synthroid) 50 mcg PO DAILY@0630 [facility] Last Admin: 05/20/18 06:37 Dose: 50 mcg Metoprolol Tartrate (Lopressor) 12.5 mg PO BID [facility] Last Admin: 05/20/18 09:08 Dose: 12.5 mg Ondansetron HCl (Zofran Inj) 4 mg IVP Q6H PRN PRN Reason: Nausea/Vomiting Last Admin: 05/18/18 18:59 Dose: 4 mg Pantoprazole Sodium (Protonix Ec Tab) 40 mg PO DAILY [facility] Last Admin: 05/20/18 11:58 Dose: 40 mg Rosuvastatin Calcium (Crestor) 5 mg PO HS [facility] Last Admin: 05/19/18 22:15 Dose: 5 mg - Labs Labs: 05/20/18 07:18 05/20/18 07:18 PT 14.6 SECONDS (9.7-12.2) H 05/18/18 11:53 INR 1.3 05/18/18 11:53 APTT 39 SECONDS (21-34) H 05/18/18 11:53 - Constitutional Appears: No Acute Distress - Eye Exam Eye Exam: Conjunctival injection - ENT Exam ENT Exam: Mucous Membranes Moist - Neck Exam Neck Exam: absent: Lymphadenopathy - Respiratory Exam Respiratory Exam: absent: Chest Wall Tenderness - Cardiovascular Exam Cardiovascular Exam: absent: Gallop, JVD, Rubs - GI/Abdominal Exam GI & Abdominal Exam: Soft, Normal Bowel Sounds - Extremities Exam Extremities Exam: absent: Calf Tenderness - Back Exam Back Exam: absent: CVA tenderness (L), CVA tenderness (R) - Neurological Exam Neurological Exam: Alert - Psychiatric Exam Psychiatric exam: Normal Affect - Skin Skin Exam: absent: Cyanosis Assessment and Plan (1) VINNY (acute kidney injury) Assessment & Plan: Acute kidney injury patient appears to be recovering from dehydration The rest of the past medical problem as noted PMHx: HTN, hypercholesterolemia, NE, CABG (triple vessel disease), prolactinoma s/p craniotomy Plan Hyponatremia being corrected Acute kidney injury patient is recovering DC IV fluid Status: Acute (2) Abdominal pain Status: Acute
--- NOTE | 2018-05-20 13:31 | CON ---
DATE: 05/19/2018 LOCATION: 550, Bed B. HISTORY OF PRESENT ILLNESS: This patient is a 62 years of age female. I was called to see her for abnormal kidney function. This is a pleasant patient, stated that she has been vomiting several times before she came to the emergency room including some diarrhea and when she came to the ER, was admitted for further evaluation. PAST MEDICAL HISTORY: Significant for hypertension and hyperlipidemia, history of NH and CABG, triple bypass surgery was done less than six months ago apparently and status post craniotomy. No history of diabetes. MEDICATIONS: Reviewed. SOCIAL HISTORY: Her previously had stroke and we used to take care of him in the past. PHYSICAL EXAMINATION: GENERAL: The patient is anxious, not in acute distress. VITAL SIGNS: Blood pressure 107/71, temperature 97.9, pulse 77. NECK: Supple. CHEST: Clear. HEART: No rubs. ABDOMEN: Soft. EXTREMITIES: No edema. LABORATORY DATA: Showed sodium 133 to 132. Potassium, initially, she came with hypokalemia which has been corrected. The last potassium was 3.7 and creatinine came down from 2.1 to 1.7. BUN 10, CO2 of 31, chloride 96, and the urinalysis, there was trace protein and hyaline casts. IMPRESSION: The patient appeared to have acute kidney injury, perhaps from dehydration, and she appeared to be recovering and improving. RECOMMENDATION: 1. The patient needs gentle hydration with normal saline, perhaps 30 mL/hour for the next 24 hours only to correct hyponatremia. 2. Stat spot urine for sodium osmolality and creatinine, and repeat BMP tomorrow. John Bryan MD
[2018-05-20 16:32] VITALS: BP 151/90; PULSE 90; O2SAT 98
--- NOTE | 2018-05-20 17:05 | CP.PCM.DIS ---
Provider - Provider Date of Admission: 05/18/18 21:42 Attending physician: Naila Chavez DO Consults: 05/18/18 16:16 Cardiology Consult Routine Comment: Consulting Provider: Olman Bermudez Consulting Physician: Olman Bermudez Reason for Consult: hx cabg, chf 05/18/18 17:01 Endocrinology Consult Routine Comment: Consulting Provider: Viji Altamirano Consulting Physician: Viji Altamirano Reason for Consult: pituitary tumor, s/p craniotomy 05/18/18 18:09 Nephrology Consult Routine Comment: Consulting Provider: Buddy Bryan Consulting Physician: Buddy Bryan Reason for Consult: kerry, hypokalemia, hypomagnesemia 05/18/18 22:34 Pulmonology Consult Routine Comment: Consulting Provider: Dean Mcleod Consulting Physician: Dean Mcleod Reason for Consult: pleural effusion 05/18/18 23:04 Social Work Referral Routine Comment: second admission in 2 weeks Physician Instructions: Reason For Exam: discharge planning 05/19/18 06:53 Neurology Consult Routine Comment: Please notify attending Consulting Provider: Lenin Brown Consulting Physician: Lenin Brown Reason for Consult: Hx of Prolactinoma s/p Neuro surgery 05/19/18 11:43 Gastroenterology Consult Routine Comment: Consulting Provider: Bhaskar Schaefer Consulting Physician: Bhaskar Schaefer Reason for Consult: patient's gi doctor, nausea/vomitting Time Spent in preparation of Discharge (in minutes): 40 Hospital Course - Lab Results Lab Results: Micro Results 05/18/18 21:40 Urine,Clean Catch Urine Culture - Final Gram Positive Cocci Most Recent Lab Values WBC 5.2 K/uL (4.8-10.8) 05/20/18 07:18 RBC 4.04 Mil/uL (3.80-5.20) 05/20/18 07:18 Hgb 11.4 g/dL (11.0-16.0) 05/20/18 07:18 Hct 34.6 % (34.0-47.0) 05/20/18 07:18 MCV 85.6 fL (81.0-99.0) 05/20/18 07:18 MCH 28.3 pg (27.0-31.0) 05/20/18 07:18 MCHC 33.0 g/dL (33.0-37.0) 05/20/18 07:18 RDW 18.1 % (11.5-14.5) H 05/20/18 07:18 Plt Count 258 K/uL (130-400) 05/20/18 07:18 MPV 9.8 fL (7.2-11.7) 05/20/18 07:18 Neut % (Auto) 68.8 % (50.0-75.0) 05/20/18 07:18 Lymph % (Auto) 25.8 % (20.0-40.0) 05/20/18 07:18 [place] % (Auto) 4.6 % (0.0-10.0) 05/20/18 07:18 Eos % (Auto) 0.1 % (0.0-4.0) 05/20/18 07:18 Baso % (Auto) 0.7 % (0.0-2.0) 05/20/18 07:18 Neut # (Auto) 3.6 K/uL (1.8-7.0) 05/20/18 07:18 Lymph # (Auto) 1.3 K/uL (1.0-4.3) 05/20/18 07:18 [place] # (Auto) 0.2 K/uL (0.0-0.8) 05/20/18 07:18 Eos # (Auto) 0.0 K/uL (0.0-0.7) 05/20/18 07:18 Baso # (Auto) 0.0 K/uL (0.0-0.2) 05/20/18 07:18 PT 14.6 SECONDS (9.7-12.2) H 05/18/18 11:53 INR 1.3 05/18/18 11:53 APTT 39 SECONDS (21-34) H 05/18/18 11:53 Sodium 135 mmol/L (132-148) 05/20/18 07:18 Potassium 3.7 mmol/L (3.6-5.2) 05/20/18 07:18 Chloride 101 mmol/L (98-107) 05/20/18 07:18 Carbon Dioxide 26 mmol/L (22-30) 05/20/18 07:18 Anion Gap 11 (10-20) 05/20/18 07:18 BUN 8 mg/dL (7-17) 05/20/18 07:18 Creatinine 1.0 mg/dL (0.7-1.2) 05/20/18 07:18 Est GFR ( Amer) > 60 05/20/18 07:18 Est GFR (Non-Af Amer) 56 05/20/18 07:18 POC Glucose (mg/dL) 153 mg/dL (65-110) H 05/19/18 10:57 Random Glucose 115 mg/dL (65-105) H D 05/20/18 07:18 Calcium 8.2 mg/dl (8.6-10.4) L 05/20/18 07:18 Phosphorus 2.0 mg/dL (2.5-4.5) L 05/20/18 07:18 Magnesium 1.7 mg/dL (1.6-2.3) 05/20/18 07:18 Total Bilirubin 0.4 mg/dL (0.2-1.3) 05/20/18 07:18 AST 23 U/L (14-36) 05/20/18 07:18 ALT 16 U/L (9-52) 05/20/18 07:18 Alkaline Phosphatase 79 U/L (38-126) 05/20/18 07:18 Total Creatine Kinase 48 U/L (30-135) 05/19/18 00:24 CK-MB (Mass) < 0.22 ng/mL (0.0-3.38) 05/19/18 00:24 Troponin I 0.0250 ng/mL (0.00-0.120) 05/19/18 00:24 NT-Pro-B Natriuret Pep 1020 pg/mL (0-900) H 05/18/18 11:53 Total Protein 6.4 g/dL (6.3-8.3) 05/20/18 07:18 Albumin 3.6 g/dL (3.5-5.0) 05/20/18 07:18 Globulin 2.8 gm/dL (2.2-3.9) 05/20/18 07:18 Albumin/Globulin Ratio 1.3 (1.0-2.1) 05/20/18 07:18 Lipase 35 U/L (23-300) 05/19/18 07:41 Free T4 1.70 ng/dL (0.78-2.19) 05/19/18 07:41 Thyroxine (T4) 13.4 ug/dL (5.5-11.0) H 05/19/18 07:41 TSH 3rd Generation < 0.02 mIU/L (0.46-4.68) L 05/19/18 07:41 Prolactin < 1.4 ng/mL (3.0-18.9) L 05/19/18 07:41 Cortisol AM Sample 5.4 ug/dL (4.46-22.7) 05/19/18 07:41 Urine Color Yellow (YELLOW) 05/18/18 21:40 Urine Clarity Sl hazy (Clear) 05/18/18 21:40 Urine pH 6.0 (5.0-8.0) 05/18/18 21:40 Ur Specific [place] 1.025 (1.003-1.030) 05/18/18 21:40 Urine Protein Trace mg/dL (NEGATIVE) 05/18/18 21:40 Urine Glucose (UA) Negative mg/dL (Normal) 05/18/18 21:40 Urine Ketones 15 mg/dL (NEGATIVE) 05/18/18 21:40 Urine Blood Negative (NEGATIVE) 05/18/18 21:40 Urine Nitrate Negative (NEGATIVE) 05/18/18 21:40 Urine Bilirubin Moderate (NEGATIVE) 05/18/18 21:40 Urine Urobilinogen 0.2 mg/dL (0.2-1.0) 05/18/18 21:40 Ur Leukocyte Esterase Negative Reyna/uL (Negative) 05/18/18 21:40 Urine WBC (Auto) 27 /hpf (0-5) H 05/18/18 21:40 Urine RBC (Auto) 6 /hpf (0-3) H 05/18/18 21:40 Ur Squamous Epith Cells 14 /hpf (0-5) H 05/18/18 21:40 Urine Bacteria Rare (<OCC) 05/18/18 21:40 Hyaline Casts >20 /lpf (0-2) H 05/18/18 21:40 - Hospital Course Hospital Course: On admission: This is a 62 year old female with PMHx of HTN, hypercholesterolemia, [place], CABG (triple vessel disease), prolactinoma s/p craniotomy who presents with a 2 day history of vomiting, and abdominal pain. Vomiting is described as watery material, 3 episodes yesterday and 5 episodes in the ED today. Abdominal pain is described as lower abdominal pain, intermittent, non radiating and occurring after these episodes of vomiting. Pt also endorses a 2 month history of weakness described as feeling drained and decreased appetite since her CABG in March 2018. Patient denies palpitations, shortness of breath, cough, nausea, vomiting, fever, chills, trauma, leg swelling, and recent travel. She was recently admitted for similar symptoms (05/09-05/13), and discharged on Lasix 40 mg PO daily. Pt took Lasix for 5 days, and finished it 05/17. Hospital course: Patient was admitted for acute kidney injury, likely from Furosemide induced diuresis after initial BUN/Cr 12/2.3. During her hospitalization, nephrotoxic agents were avoided and her BUN/Cr improved to 8/1.0. Her initial potassium and magnesium were low and improved during hospitalization. Patient's nausea and vomiting improved. Since patient was status post craniotomy for prolactinoma, patient was treated with SoluCortef. For her history of CABG with triple vessel disease, patient was treated with ASA, Lopressor and Crestor; LIZANDRO/ARB, Lasix and Aldactone were held as per Dr. Bermudez. Upon discharge, patient remained able to tolerate diet without nausea or vomiting. Imaging: Renal US: No obstructing calculus or hydronephrosis identified. Nonobstructing 5 mm left midpole calculus. The prevoid urinary bladder calculated volume 37.6 mL. Patient unable to void precluding evaluation of postvoid residual. B ilateral ureteral jets are not identified. Abdomen XR One small bowel loop (the more cephalad of the left lower abdominal bowel loops projecting over the left iliac crest) appears borderline distended on series 3538 image 3-. A partial small-bowel obstruction is 1 consideration. Top normal variant is another.Clinical follow-up and correlation recommended. The regional inferior gas-filled loop of bowel here is indeterminate in its origin - being small or large bowel Abdomen/pelvic CT with PO contrast No significant or acute findings to account for/ related to the clinical presentation. Additional benign and/or incidental findings described above. Head CT: Nonspecific white matter changes. Heterogeneous density noted at the sella which was not seen on prior imaging may reflect postoperative changes. Discharge: Patient left against medical advice. Patient was given scripts. [employer] Dr. Altamirano stated that she would call patient with script for oral steroids. Discharge Exam - Head Exam Head Exam: ATRAUMATIC, NORMOCEPHALIC - Eye Exam Eye Exam: EOMI, PERRL - ENT Exam ENT Exam: Mucous Membranes Moist - Respiratory Exam Respiratory Exam: Clear to PA & Lateral, NORMAL BREATHING PATTERN. absent: Rales, Rhonchi, Wheezes - Cardiovascular Exam Cardiovascular Exam: REGULAR RHYTHM, +S1, +S2 - GI/Abdominal Exam GI & Abdominal Exam: Normal Bowel Sounds, Soft. absent: Tenderness - Extremities Exam Extremities exam: pedal pulses present - Neurological Exam Neurological exam: Alert, CN II-XII Intact, Oriented x3 - Psychiatric Exam Psychiatric exam: Normal Affect, Normal Mood - Skin Skin Exam: Dry, Intact, Warm Discharge Plan - Discharge Medications Prescriptions: Aspirin [Ecotrin] 81 mg PO DAILY #30 tabec Levothyroxine [Synthroid] 50 mcg PO DAILY@0630 #30 tab Metoprolol Tartrate [Lopressor] 12.5 mg PO BID #60 tab Pantoprazole [Protonix EC Tab] 40 mg PO DAILY #30 ect Rosuvastatin Calcium [Crestor] 5 mg PO HS #30 tab - Follow Up Plan Condition: FAIR Disposition: AGAINST MEDICAL ADVICE Instructions: Nausea and Vomiting, Adult (DC), Pleural Effusion (DC) Additional Instructions: Follow up with Dr. Bermudez within 1 month for follow up. Call Dr. Altamirano's office tomorrow regarding whether you should take an oral steroid. Please feel free to return to ED for symptoms of nausea or vomiting. Referrals: Olman Bermudez MD [Staff Provider] - Viji Altamirano MD [Staff Provider] - Buddy Bryan MD [Staff Provider] - Bhaskar Schaefer MD [Staff Provider] -
--- NOTE | 2018-05-21 22:18 | CARD ---
APPROVED REPORT Date of service: 05/19/2018 EKG Measurement Heart [id number] <Conclusion> Normal sinus rhythm Possible Left atrial enlargement Low voltage QRS Inferior infarct, age undetermined Anterolateral infarct, age undetermined Abnormal ECG
--- NOTE | 2018-05-23 11:48 | CARD ---
APPROVED REPORT Date of service: 05/18/2018 EKG Measurement Heart [id number] [place] [id number] <Conclusion> Normal sinus rhythm Possible Left atrial enlargement Low voltage QRS Inferior infarct, age undetermined Anterolateral infarct, age undetermined Abnormal ECG
--- NOTE | 2018-05-23 11:49 | CARD ---
APPROVED REPORT Date of service: 05/18/2018 EKG Measurement Heart [id number] [place] [id number] <Conclusion> Normal sinus rhythm Low voltage QRS Inferior infarct, age undetermined Anterolateral infarct, age undetermined Abnormal ECG
--- NOTE | 2018-05-23 11:53 | CARD ---
APPROVED REPORT Date of service: 05/18/2018 EKG Measurement Heart [id number] [place] 152P24 [id number] <Conclusion> Normal sinus rhythm Left axis deviation Inferior infarct, age undetermined Anterolateral infarct, age undetermined Abnormal ECG
== END 2018-05-20 17:00 | disposition left against medical advice (07) ==
LOC: C.ER 10:00 → C.9E 14:49 → C.5S 15:33 → INTOOBSV 21:42 → OBSVTOIN 21:42
PROVIDERS: ADMIT Hospitalist; ATTEND Hospitalist
DX: N17.9 Acute kidney failure, unspecified (principal); E87.1 Hypo-osmolality and hyponatremia; K56.600 Partial intestinal obstruction, unspecified as to cause; E03.9 Hypothyroidism, unspecified; E11.9 Type 2 diabetes mellitus without complications; E83.42 Hypomagnesemia; T50.1X5A Adverse effect of loop [high-ceiling] diuretics, initial encounter; E86.0 Dehydration; E87.6 Hypokalemia; I11.0 Hypertensive heart disease with heart failure; I25.10 Atherosclerotic heart disease of native coronary artery without angina pectoris; I50.9 Heart failure, unspecified; K21.0 Gastro-esophageal reflux disease with esophagitis; K52.9 Noninfective gastroenteritis and colitis, unspecified; E78.5 Hyperlipidemia, unspecified; E78.00 Pure hypercholesterolemia, unspecified; Z85.040 Personal history of malignant carcinoid tumor of rectum; Z86.39 Personal history of other endocrine, nutritional and metabolic disease; Z86.010 Personal history of colon polyps; I25.2 Old myocardial infarction; Z91.19 Patient's noncompliance with other medical treatment and regimen; Z95.1 Presence of aortocoronary bypass graft; Z95.5 Presence of coronary angioplasty implant and graft; Z79.82 Long term (current) use of aspirin; Z79.890 Hormone replacement therapy; Z80.0 Family history of malignant neoplasm of digestive organs; Z80.49 Family history of malignant neoplasm of other genital organs
CPT/HCPCS: 36415; 70450; 71046; 74019; 74176; 76770; 76857; 80048; 80053; 81001; 82533; 82550; 82553; 82948; 83690; 83735; 83880; 84100; 84146; 84305; 84436; 84439; 84443; 84484; 85025; 85610; 85730; 87086; 93005; 96374; 96375; 96376; 99285; G0378; J1644; J1720; J2270; J2405; J3475; J3480; J7030; J7040; J7070

== ENCOUNTER 2018-06-18 08:23 | Outpatient (CLI) | payer BC | END 2018-06-18 08:24 | disposition home or self-care (01) | LOC: C.RADH 08:23 | DX: K21.9 Gastro-esophageal reflux disease without esophagitis (principal); R11.2 Nausea with vomiting, unspecified; R63.4 Abnormal weight loss; R10.30 Lower abdominal pain, unspecified; K44.9 Diaphragmatic hernia without obstruction or gangrene ==